=== PATIENT | male | born 1985 | race Caucasian/White ===

== ENCOUNTER → 2017-09-21 | Outpatient (CLI) | payer BC | LOC: WOUNDCARE 14:20 | PROVIDERS: ATTEND Surgery | DX: E11.621 Type 2 diabetes mellitus with foot ulcer (principal); L97.522 Non-pressure chronic ulcer of other part of left foot with fat layer exposed | CPT/HCPCS: 11042; 87070; 87075; 87077; 87186; 87205 ==

== ENCOUNTER → 2017-09-21 | Outpatient (CLI) | payer BC ==
--- NOTE | 2017-09-21 17:15 | Diagnostic Imaging Report ---
INDICATION: Mid back pain and low back pain for 2 months. No known injury.. TECHNIQUE: 3 views of the lumbar spine COMPARISON: None FINDINGS: There is mild left convex curvature of the lumbar spine centered at L3-L4. No spondylolisthesis is seen. The vertebral body heights are preserved. The disc heights are preserved. No acute fracture or dislocation is seen. The bilateral sacroiliac joints are patent. IMPRESSION: 1. No acute or significant osseous abnormality is seen in the lumbar spine. Dictated on workstation # [id number]
--- NOTE | 2017-09-21 17:25 | Diagnostic Imaging Report ---
INDICATION: Back pain. AP and lateral views of the thoracic spine are obtained. FINDINGS: The thoracic vertebrae are normal in height and alignment. There is no overt compression deformity or acute fracture. There are minor osteophytes in the lower thoracic spine. IMPRESSION: No acute abnormality of the thoracic spine. Dictated by: Dictated on workstation # [id number]
== END ==
LOC: RAD 16:10
PROVIDERS: ATTEND Nurse Practitioner Family
DX: M54.6 Pain in thoracic spine (principal); M54.5 Low back pain
CPT/HCPCS: 72072; 72100

== ENCOUNTER → 2017-09-21 | Outpatient (CLI) | payer BC ==
[2017-09-21 16:44] LABS: BASOPHILS % (AUTO) 0 % (0-10); EOSINOPHILS # (AUTO) 0.1 10^3/uL (0.0-0.3); EOSINOPHILS % (AUTO) 1 % (0-10); HEMATOCRIT 43 % (40-54); HEMOGLOBIN 15.8 G/DL (13.3-17.7); LYMPHOCYTES # (AUTO) 1.6 X 10^3 (1.0-4.0); LYMPHOCYTES % (AUTO) 25 % (12-44); MEAN CORPUSCULAR HEMOGLOBIN 31 PG (25-34); MEAN CORPUSCULAR HGB CONC 36 G/DL (32-36); MEAN CORPUSCULAR VOLUME 84 FL (80-99); MEAN PLATELET VOLUME 10.5 FL (7.4-10.4); MONOCYTES # (AUTO) 0.5 X 10^3 (0.0-1.0); MONOCYTES % (AUTO) 7 % (0-12); NEUTROPHILS # (AUTO) 4.2 X 10^3 (1.8-7.8); NEUTROPHILS % (AUTO) 66 % (42-75); PLATELET COUNT 259 10^3/uL (130-400); RED BLOOD COUNT 5.17 10^6/uL (4.35-5.85); RED CELL DISTRIBUTION WIDTH 13.9 % (10.0-14.5); WHITE BLOOD COUNT 6.3 10^3/uL (4.3-11.0)
[2017-09-21 17:08] LABS: ALANINE AMINOTRANSFERASE 20 U/L (0-55); ALBUMIN 4.3 GM/DL (3.2-4.5); ALKALINE PHOSPHATASE 105 U/L (40-136); BILIRUBIN,TOTAL 0.6 MG/DL (0.1-1.0); BUN/CREATININE RATIO 23; CALCIUM 9.8 MG/DL (8.5-10.1); CARBON DIOXIDE 24 MMOL/L (21-32); CHLORIDE 102 MMOL/L (98-107); CREATININE SERUM 0.92 MG/DL (0.60-1.30); GFR ESTIMATED > 60; GLUCOSE 269 MG/DL (70-105); SODIUM 138 MMOL/L (135-145); TOTAL PROTEIN 7.8 GM/DL (6.4-8.2)
--- NOTE | 2017-09-21 17:17 | Diagnostic Imaging Report ---
INDICATION: Foot ulcer x2-3 weeks. Type 2 diabetes. TECHNIQUE: 3 views of the left foot CORRELATION STUDY: None FINDINGS: Osseous structure appear to be intact. No acute bony abnormality. No gaye bony destructive type change. Joint spaces overall fairly well preserved. Marker is placed at the area of ulceration interposed between the third and fourth digits, demonstrates some soft tissue swelling without evidence for large gas collection. IMPRESSION: 1. Soft tissue swelling of the distal foot. Negative for acute bony abnormality or gaye erosive change. Dictated by: Dictated on workstation # [id number]
== END ==
LOC: RAD 16:00
PROVIDERS: ATTEND Surgery
DX: E11.621 Type 2 diabetes mellitus with foot ulcer (principal)
CPT/HCPCS: 36415; 73630; 80053; 83036; 85025

== ENCOUNTER → 2017-09-26 | Outpatient (CLI) | payer BC | LOC: WOUNDCARE 11:12 | PROVIDERS: ATTEND Surgery | DX: E11.621 Type 2 diabetes mellitus with foot ulcer (principal); L97.522 Non-pressure chronic ulcer of other part of left foot with fat layer exposed | CPT/HCPCS: 11042 ==

== ENCOUNTER → 2017-09-28 | Outpatient (CLI) | payer BC | LOC: WOUNDCARE 10:18 | PROVIDERS: ATTEND Surgery | DX: E11.621 Type 2 diabetes mellitus with foot ulcer (principal); L97.522 Non-pressure chronic ulcer of other part of left foot with fat layer exposed | CPT/HCPCS: 29445 ==

== ENCOUNTER → 2017-09-29 | Outpatient (CLI) | payer BC | LOC: WOUNDCARE 10:50 | PROVIDERS: ATTEND Internal Medicine | DX: E11.621 Type 2 diabetes mellitus with foot ulcer (principal); L97.522 Non-pressure chronic ulcer of other part of left foot with fat layer exposed | CPT/HCPCS: 99212 ==

== ENCOUNTER → 2017-10-03 | Outpatient (CLI) | payer BC | LOC: WOUNDCARE 08:58 | PROVIDERS: ATTEND Surgery | DX: E11.621 Type 2 diabetes mellitus with foot ulcer (principal); L97.522 Non-pressure chronic ulcer of other part of left foot with fat layer exposed | CPT/HCPCS: 99212 ==

== ENCOUNTER → 2017-10-03 | Outpatient (CLI) | payer BC ==
--- NOTE | 2017-10-03 14:23 | Diagnostic Imaging Report ---
INDICATION: Low back pain. TECHNIQUE: Multiplanar and multisequence acquisitions were acquired through the thoracic spine without the use of gadolinium. FINDINGS: The alignment of thoracic spine is normal. The vertebral body heights are well-maintained. There is no fracture or traumatic subluxation. There are no marrow signal intensity abnormalities. The spinal cord is normal in signal intensity and morphology. There is no focal disc extrusion or spinal stenosis. Conus medullaris is seen at L1 and is normal in appearance. IMPRESSION: Essentially unremarkable MRI thoracic spine. Dictated by: Dictated on workstation # [id number]
--- NOTE | 2017-10-03 16:34 | Diagnostic Imaging Report ---
PROCEDURE: MRI lumbar spine. TECHNIQUE: Multiplanar, multisequence MRI of the lumbar spine was performed without contrast. INDICATION: Low back pain. COMPARISON: None. FINDINGS: There are five lumbar type vertebral bodies presumed for the purposes of this report. Normal alignment. Vertebral body heights preserved. Normal bone marrow signal. No abnormal signal in the conus which terminates at L2. Normal morphology of the cauda equina. The intervertebral discs are well-preserved. There is no spinal canal, lateral recess or neural foraminal narrowing throughout the lumbar spine. No substantial facet arthropathy. The visualized paravertebral soft tissues are unremarkable. IMPRESSION: Normal MRI of the lumbar spine. No substantial spondylotic change or neural impingement. No acute osseous findings. Dictated by: Dictated on workstation # [id number]
== END ==
LOC: RAD 12:58
PROVIDERS: ATTEND Nurse Practitioner Family
DX: M54.5 Low back pain (principal)
CPT/HCPCS: 72146; 72148

== ENCOUNTER → 2019-03-20 | Outpatient (CLI) | payer BC | LOC: WOUNDCARE 13:41 | PROVIDERS: ATTEND Surgery | DX: E11.621 Type 2 diabetes mellitus with foot ulcer (principal); E11.42 Type 2 diabetes mellitus with diabetic polyneuropathy; L97.522 Non-pressure chronic ulcer of other part of left foot with fat layer exposed; E11.65 Type 2 diabetes mellitus with hyperglycemia; I10 Essential (primary) hypertension | CPT/HCPCS: 11042 ==

== ENCOUNTER → 2019-03-20 | Outpatient (CLI) | payer BC | LOC: LAB 15:18 | PROVIDERS: ATTEND Surgery | DX: E11.621 Type 2 diabetes mellitus with foot ulcer (principal); E11.42 Type 2 diabetes mellitus with diabetic polyneuropathy; L97.522 Non-pressure chronic ulcer of other part of left foot with fat layer exposed; E11.65 Type 2 diabetes mellitus with hyperglycemia | CPT/HCPCS: 36415; 83036 ==

== ENCOUNTER → 2019-03-27 | Outpatient (CLI) | payer BC | LOC: WOUNDCARE 14:18 | PROVIDERS: ATTEND Surgery | DX: E11.621 Type 2 diabetes mellitus with foot ulcer (principal); E11.42 Type 2 diabetes mellitus with diabetic polyneuropathy; L97.522 Non-pressure chronic ulcer of other part of left foot with fat layer exposed; E11.65 Type 2 diabetes mellitus with hyperglycemia | CPT/HCPCS: 99212 ==

== ENCOUNTER 2020-03-02 09:00 | Outpatient (RCR) | payer BC ==
[2020-03-01 09:50] VITALS: BP 126/93
[~2020-03-02] VITALS: Ht 182.9 cm
[2020-03-02 09:30] VITALS: BP 129/92
== END 2020-03-02 09:30 | disposition home or self-care (01) ==
LOC: SDC 09:00
PROVIDERS: ATTEND Nurse Practitioner Family
DX: L02.91 Cutaneous abscess, unspecified (principal)
CPT/HCPCS: 99212

== ENCOUNTER → 2020-10-20 | Outpatient (CLI) | payer BC ==
--- NOTE | 2020-10-20 16:02 | Diagnostic Imaging Report ---
INDICATION: Lower back pain. COMPARISON: 09/21/2017 FINDINGS: Frontal and lateral views of the lumbar spine were obtained. Alignment and vertebral heights are maintained. There is no fracture or destructive process. Multilevel degenerative disease is noted in the lumbar spine and consist primarily of facet arthropathy of the lower lumbar spine. Limited views of the abdomen demonstrate nonobstructive bowel gas pattern. IMPRESSION: 1. No acute fracture or dislocation of the lumbar spine. 2. Mild multilevel degenerative changes. Dictated by: Dictated on workstation # [id number]
--- NOTE | 2020-10-20 16:03 | Diagnostic Imaging Report ---
INDICATION: Back pain. COMPARISON: 09/21/2017 FINDINGS: Frontal and lateral views of the thoracic spine were obtained. Visualization of the upper thoracic spine is limited on the lateral projection. Alignment and vertebral heights are maintained. There is no fracture or destructive process. There are no large paraspinal masses. Mild multilevel degenerative disease is noted in the thoracic spine and consist primarily of mild multilevel intervertebral disc height loss. Limited views of the lungs are clear. IMPRESSION: 1. No acute fracture or dislocation of the thoracic spine. 2. Mild multilevel degenerative changes. Dictated by: Dictated on workstation # [id number]
== END ==
LOC: RAD 15:18
PROVIDERS: ATTEND Chiropractor
DX: M47.814 Spondylosis without myelopathy or radiculopathy, thoracic region (principal); M47.816 Spondylosis without myelopathy or radiculopathy, lumbar region; M51.34 Other intervertebral disc degeneration, thoracic region
CPT/HCPCS: 72072; 72100

== ENCOUNTER 2022-06-11 11:55 | Emergency (ER) | payer BC ==
[~2022-06-11] VITALS: Ht 188 cm; Wt 95.3 kg
--- NOTE | 2022-06-11 12:43 | ED GI ---
General Chief Complaint: Abdominal/GI Problems Stated Complaint: VOMITING | DIARRHEA| CHILLS Nursing Triage Note: PT AMB TO TRIAGE W C/O N/V/D, CHILLS, SOA, AND ABD PAIN SX APPROX 0700 THIS AM. PT A&OX4. Source of Information: Patient Exam Limitations: No Limitations History of Present Illness Date Seen by Provider: Jun 11, 2022 Time Seen by Provider: 12:23 Initial Comments 36-year-old male with diabetes mellitus presents emerged department today for nausea vomiting and diarrhea. Symptoms started this morning. No sick contacts. For loose stools today, multiple bouts of emesis. States he is unable to keep anything down at this time. He has diffuse abdominal cramping without any focal abdominal tenderness. No fevers but he has had chills. Sugar was 268 prior to arrival. Allergies and Home Medications Allergies Coded Allergies: No Known Drug Allergies (Unverified , 06/11/22) Patient Home Medication List Home Medication List Reviewed: Yes Ondansetron (Ondansetron Odt) 8 Mg Tab.rapdis, 8 MG SL Q4H PRN for NAUSEA/VOMITING Prescribed by: JONAH WALLER MD on 06/11/22 [id number] Review of Systems Review of Systems Constitutional: no symptoms reported EENTM: No Symptoms Reported Respiratory: No Symptoms Reported Cardiovascular: No Symptoms Reported Gastrointestinal: Abdominal Pain, Diarrhea, Nausea, Vomiting Genitourinary: No Symptoms Reported Musculoskeletal: no symptoms reported Skin: no symptoms reported Psychiatric/Neurological: No Symptoms Reported Endocrine: No Symptoms Reported Hematologic/Lymphatic: No Symptoms Reported Past [id number] Hx Patient Social History Tobacco Use?: No Use of E-Cig and/or Vaping dev: No Substance use?: No Alcohol Use?: Yes Alcohol Frequency: Once in a while Immunizations Up To Date Influenza Vaccine Up-to-Date: No; Not Current First/Initial COVID19 Vaccinat: 2020 Second COVID19 Vaccination Zach: 2020 Third COVID19 Vaccination Date: 2021 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 oz. kg; 26.00 BMI Method: General Appearance: WD/WN, no apparent distress HEENT: normal ENT inspection, pharynx normal Neck: non-tender, full range of motion, supple, normal inspection Respiratory: chest non-tender, lungs clear, normal breath sounds, no respiratory distress, no accessory muscle use Cardiovascular: regular rate, rhythm, no edema, no gallop, no JVD, no murmur Gastrointestinal: normal bowel sounds, soft, no organomegaly, no pulsatile mass, tenderness (Mild tenderness in the epigastric region. No rebound or guarding. No mass organomegaly. No skin changes.) Extremities: normal range of motion, non-tender, normal inspection, no pedal edema, no calf tenderness, normal capillary refill Neurologic/Psychiatric: alert, normal mood/affect, oriented x 3 Skin: normal color, warm/dry Lymphatic: no adenopathy Progress/Results/Core Measures Results/Orders Lab Results Laboratory Tests Test 06/11/22 12:55 Range/Units White Blood Count 12.5 H 4.3-11.0 10^3/uL Red Blood Count 5.15 4.30-5.52 10^6/uL Hemoglobin 15.8 13.3-17.7 g/dL Hematocrit 44 40-54 % Mean Corpuscular Volume 86 80-99 fL Mean Corpuscular Hemoglobin 31 25-34 pg Mean Corpuscular Hemoglobin Concent 36 32-36 g/dL Red Cell Distribution Width 13.1 10.0-14.5 % Platelet Count 216 130-400 10^3/uL Mean Platelet Volume 10.9 9.0-12.2 fL Immature Granulocyte % (Auto) 1 % Neutrophils (%) (Auto) 85 H 42-75 % Lymphocytes (%) (Auto) 8 L 12-44 % Monocytes (%) (Auto) 5 0-12 % Eosinophils (%) (Auto) 0 0-10 % Basophils (%) (Auto) 0 0-10 % Neutrophils # (Auto) 10.7 H 1.8-7.8 10^3/uL Lymphocytes # (Auto) 1.1 1.0-4.0 10^3/uL Monocytes # (Auto) 0.7 0.0-1.0 10^3/uL Eosinophils # (Auto) 0.0 0.0-0.3 10^3/uL Basophils # (Auto) 0.0 0.0-0.1 10^3/uL Immature Granulocyte # (Auto) 0.1 0.0-0.1 10^3/uL Sodium Level 137 135-145 MMOL/L Potassium Level 2.9 L 3.6-5.0 MMOL/L Chloride Level 101 98-107 MMOL/L Carbon Dioxide Level 21 21-32 MMOL/L Anion Gap 15 H 5-14 MMOL/L Blood Urea Nitrogen 12 7-18 MG/DL Creatinine 0.93 0.60-1.30 MG/DL Estimat Glomerular Filtration Rate 108 BUN/Creatinine Ratio 13 Glucose Level 320 H 70-105 MG/DL Calcium Level 10.2 H 8.5-10.1 MG/DL Corrected Calcium 8.5-10.1 MG/DL Total Bilirubin 0.9 0.1-1.0 MG/DL Aspartate Amino Transf (AST/SGOT) 26 5-34 U/L Alanine Aminotransferase (ALT/SGPT) 62 H 0-55 U/L Alkaline Phosphatase 99 40-136 U/L Total Protein 7.6 6.4-8.2 GM/DL Albumin 4.6 H 3.2-4.5 GM/DL Lipase 11 8-78 U/L My Orders Orders - JONAH WALLER DO Iv Heplock-Insert (Order) (06/11/22 12:39) Ns Iv 1000 Ml (Sodium Chloride 0.9%) (06/11/22 12:45) Ondansetron Injection (Zofran Injectio (06/11/22 12:45) Comprehensive Metabolic Panel (06/11/22 12:43) Lipase (06/11/22 12:43) Cbc With Automated Diff (06/11/22 12:43) Diphenhydramine Injection (Benadryl Inje (06/11/22 13:15) Promethazine Injection (Phenergan Injec (06/11/22 13:45) Medications Given in ED Current Medications Medications Dose Ordered Sig/Michele Route Start Time Stop Time Status Last Admin Dose Admin Diphenhydramine HCl 50 mg ONCE ONCE IVP 06/11/22 13:15 06/11/22 13:16 DC 06/11/22 12:58 50 MG Ondansetron HCl 8 mg ONCE ONCE IVP 06/11/22 12:45 06/11/22 12:46 DC 06/11/22 12:57 8 MG Promethazine HCl 25 mg ONCE ONCE IVP 06/11/22 13:45 06/11/22 13:46 DC 06/11/22 13:51 25 MG Vital Signs/I&O 06/11/22 12:02 Temp 35.3 Pulse 86 Resp 26 B/P (MAP) 165/108 (127) Pulse Ox 100 O2 Delivery Room Air Blood Pressure Mean: 127 Departure Communication (Admissions) Patient is hemodynamically stable. Tolerating p.o. after provided therapies. Does still have some intermittent nausea. Likely viral gastroenteritis. Blood sugar is elevated however there is no evidence for DKA at this time. Advised to watch his sugars closely, increase his fluids and return to the emergency department for any severe concerns. Follow-up with his doctor in the next 2 to 3 days. Impression Primary Impression: Nausea and vomiting Qualified Codes: R11.2 - Nausea with vomiting, unspecified Additional Impression: Diarrhea Qualified Codes: R19.7 - Diarrhea, unspecified Disposition: 01 HOME, SELF-CARE Condition: Stable Departure-Patient Inst. Referrals: ELSA WILSON MD (PCP/Family) Primary Care Physician Patient Instructions: Viral Gastroenteritis, Adult (DC) Add. Discharge Instructions: Increase your fluids at home. Use the nausea medicine as needed. You may also use Benadryl as needed which helps quite a lot with nausea. Monitor your blood sugars closely. Return to the emergency department for any severe concerns. Follow-up with your primary doctor in 3 to 4 days should your symptoms not improved. All discharge instructions reviewed with patient and/or family. Voiced understanding. Scripts Ondansetron (Ondansetron Odt) 8 Mg Tab.rapdis 8 MG SL Q4H PRN for NAUSEA/VOMITING for 3 Days, #18 TAB Prov: JONAH WALLER DO 06/11/22 JONAH WALLER DO Jun 11, 2022 12:43
[2022-06-11] MEDS ORDERED: NS IV 1000 ML 1,000 ML IV SCH (12:45)
[2022-06-11] MEDS ORDERED: diphenhydrAMINE 50 MG/ML INJ (BENADRYL) IM ONE (12:45)
[2022-06-11] MEDS ORDERED: ONDANSETRON 4 MG/2 ML (SDV) Z0FRAN IVP ONE (12:45)
[2022-06-11 13:05] LABS: BASOPHILS % (AUTO) 0 % (0-10); EOSINOPHILS % (AUTO) 0 % (0-10); HEMATOCRIT 44 % (40-54); HEMOGLOBIN 15.8 g/dL (13.3-17.7); LYMPHOCYTES # (AUTO) 1.1 10^3/uL (1.0-4.0); LYMPHOCYTES % (AUTO) 8 % (12-44); MEAN CORPUSCULAR HEMOGLOBIN 31 pg (25-34); MEAN CORPUSCULAR HGB CONC 36 g/dL (32-36); MEAN CORPUSCULAR VOLUME 86 fL (80-99); MEAN PLATELET VOLUME 10.9 fL (9.0-12.2); MONOCYTES # (AUTO) 0.7 10^3/uL (0.0-1.0); MONOCYTES % (AUTO) 5 % (0-12); NEUTROPHILS # (AUTO) 10.7 10^3/uL (1.8-7.8); NEUTROPHILS % (AUTO) 85 % (42-75); PLATELET COUNT 216 10^3/uL (130-400); WHITE BLOOD COUNT 12.5 10^3/uL (4.3-11.0)
[2022-06-11] MEDS ORDERED: diphenhydrAMINE 50 MG/ML INJ (BENADRYL) IVP ONE (13:15)
[2022-06-11 13:23] LABS: ALBUMIN 4.6 GM/DL (3.2-4.5); CHLORIDE 101 MMOL/L (98-107); POTASSIUM 2.9 MMOL/L (3.6-5.0); SODIUM 137 MMOL/L (135-145)
[2022-06-11 13:24] LABS: CALCIUM 10.2 MG/DL (8.5-10.1)
[2022-06-11 13:25] LABS: GLUCOSE 320 MG/DL (70-105); TOTAL PROTEIN 7.6 GM/DL (6.4-8.2)
[2022-06-11 13:26] LABS: CARBON DIOXIDE 21 MMOL/L (21-32)
[2022-06-11 13:27] LABS: BILIRUBIN,TOTAL 0.9 MG/DL (0.1-1.0)
[2022-06-11 13:29] LABS: ALKALINE PHOSPHATASE 99 U/L (40-136); CREATININE SERUM 0.93 MG/DL (0.60-1.30); GFR ESTIMATED 108
[2022-06-11 13:30] LABS: BUN/CREATININE RATIO 13
[2022-06-11 13:32] LABS: ALANINE AMINOTRANSFERASE 62 U/L (0-55); LIPASE 11 U/L (8-78)
[2022-06-11] MEDS ORDERED: ONDA8TAB13 SL ×2 (13:36→14:33)
[2022-06-11] MEDS ORDERED: PROMETHAZINE INJ 25 MG/ML (PHENERGAN) AMP IVP ONE (13:45)
[2022-06-11 14:34] VITALS: BP 164/91
== END 2022-06-11 14:34 | disposition home or self-care (01) ==
LOC: EDUNIT# 11:55 → ER 11:58
DX: R11.2 Nausea with vomiting, unspecified (principal); R19.7 Diarrhea, unspecified; R10.13 Epigastric pain; E11.9 Type 2 diabetes mellitus without complications
CPT/HCPCS: 36415; 80053; 83690; 85025; 99281

== ENCOUNTER 2023-03-23 05:43 | Outpatient (CLI) | payer BC ==
[~2023-03-23] VITALS: Ht 188 cm; Wt 103.6 kg
[~2023-03-23 05:43] MED LIST: ONDA8TAB13 SL
[2023-03-24] MEDS ORDERED: LOSA25TA41 PO (15:22)
[2023-03-24] MEDS ORDERED: TADA5TAB13 PO (15:22)
[2023-03-24] MEDS ORDERED: ATOR10TA66 PO (15:22)
[2023-03-24] MEDS ORDERED: NAPR220C11 PO (15:22)
[2023-03-24] MEDS ORDERED: BACL10TA PO (15:22)
[2023-03-24] MEDS ORDERED: PANT40TA52 PO (15:22)
== END 2023-03-24 15:29 | disposition home or self-care (01) ==
LOC: PREOP 05:43
PROVIDERS: ATTEND Surgery
DX: Z01.818 Encounter for other preprocedural examination (principal)

== ENCOUNTER → 2023-03-30 | Outpatient (CLI) | payer BC ==
[~2023-03-30] MED LIST changes: +ATOR10TA66 PO; +BACL10TA PO; +LOSA25TA41 PO; +NAPR220C11 PO; +PANT40TA52 PO; +TADA5TAB13 PO
--- NOTE | 2023-03-30 16:32 | Diagnostic Imaging Report ---
INDICATION: Dysphagia. Patient ingested effervescent crystals as well as thin and thick barium and imaging of the esophagus was performed in multiple obliquities. 66 seconds of fluoroscopic time was utilized. Reference air kermes 49.6 mGy. 40 images were obtained. Preliminary radiograph of the chest is unremarkable. Esophagus has smooth contour. No mass or strictures identified. No hiatal hernia or gastroesophageal reflux was demonstrated. IMPRESSION: Unremarkable esophagram. Dictated by: Dictated on workstation # [id number]
== END ==
LOC: RAD 09:38
PROVIDERS: ATTEND Surgery
DX: R13.10 Dysphagia, unspecified (principal)
CPT/HCPCS: 74220

== ENCOUNTER 2023-04-05 11:59 | Day surgery (SDC) | payer BC ==
[~2023-04-05] VITALS: Ht 188 cm; Wt 103.6 kg
[2023-04-05] MEDS ORDERED: LACTATED RINGERS 1,000 ML 1,000 ML IV STA (12:11)
[2023-04-05] MEDS ORDERED: HURRICAINE EXT TUBE (BENZOCAINE) XX PRN (12:15)
[2023-04-05 12:30] VITALS: BP 182/109
[2023-04-05] MEDS ORDERED: LACTATED RINGERS 1,000 ML 1,000 ML IV ONE (12:42)
[2023-04-05] MEDS ORDERED: HURRICAINE EXT TUBE (BENZOCAINE) ONE (12:42)
--- NOTE | 2023-04-05 13:19 | Progress Note-Pre Operative ---
Pre-Operative Progress Note Date H&P Reviewed: Apr 05, 2023 Time H&P Reviewed: 13:18 History & Physical: H&P Reviewed, Patient Examed, No changes noted Pre-Operative Diagnosis: dysphagia SHAUNNA SUAREZ DO Apr 05, 2023 13:19
--- NOTE | 2023-04-05 14:09 | Progress Note-Post Operative ---
Post-Operative Progess Note Surgeon (s)/Control And Recovery Combat Rescue (s) Surgeon SHAUNNA SUAREZ DO Control And Recovery Combat Rescue: NA Pre-Operative Diagnosis dysphagia Post-Operative Diagnosis questionable gastroparesis some reflux esophagitis Procedure & Operative Findings Date of Procedure 04/05/23 Procedure Performed/Findings EGD and biopsies Anesthesia Type per CHLORINE PLANT OPERATOR Estimated Blood Loss Estimated blood loss (mL): none Specimens/Packing Specimens Removed antrum and GEJ SHAUNNA SUAREZ DO Apr 05, 2023 14:09
[2023-04-05 14:10] VITALS: BP 132/83
--- NOTE | 2023-04-05 14:10 | Discharge Inst-Simple/Standard ---
Discharge Inst-Standard Patient Instructions/Follow Up Plan of Care/Instructions/FU: 2 weeks cyn Activity as Tolerated: Yes Discharge Diet: Regular Diet SHAUNNA SUAREZ DO Apr 05, 2023 14:10
[2023-04-05 14:15] VITALS: BP_SYST 132; BP_SYST 134; BP_DIAS 84; BP_DIAS 86
--- NOTE | 2023-04-05 14:20 | Anesthesia-General Post-Op ---
MAC Patient Condition Mental Status/LOC: Same as Preop Cardiovascular: Satisfactory Nausea/Vomiting: Absent Respiratory: Satisfactory Pain: Controlled Complications: Absent Post Op Complications Complications None Follow Up Care/Instructions Patient Instructions None needed. Anesthesiology Discharge Order Discharge Order Patient is doing well, no complaints, stable vital signs, no apparent adverse anesthesia problems. No complications reported per nursing. JUAN FRANCISCO ROCHA CRNA Apr 05, 2023 14:20
[2023-04-05 14:39] VITALS: BP 134/84
--- NOTE | 2023-04-05 21:04 | OPERATIVE REPORT ---
DATE OF SERVICE: 04/05/2023 PREOPERATIVE DIAGNOSIS: Dysphagia. POSTOPERATIVE DIAGNOSES: Questionable gastroparesis, some reflux esophagitis. SURGEON: Shaunna Tovar DO ANESTHESIA: Per BLEACH SUPERVISOR. PROCEDURES: EGD with biopsies. ESTIMATED BLOOD LOSS: None. COMPLICATIONS: None. INDICATIONS: The patient is a 37-year-old male with some dysphagia symptoms. He understands risks and benefits of procedure and wished to proceed. Consent was signed in chart. DESCRIPTION OF PROCEDURE: The patient was taken to endoscopy suite, placed in the left lateral recumbent position. Timeout was performed. Scope was inserted in the mouth, down the esophagus, stomach, into the duodenum without difficulty. There were no polyps, masses or ulcerations. Scope was slowly retracted back into stomach where it was further insufflated. Stomach had a fair amount of gastric contents. Lots of irrigation and suction used, but the larger particulates could not be evacuated. Biopsy of the antrum was obtained. Scope was retroflexed noting no hiatal hernia, no other pathology. Again, with the amount of food particulate in the stomach, question gastroparesis. Scope was then slowly retracted back to the distal esophagus. Biopsy of GE junction was obtained. Slight reflux esophagitis appearance. Scope was slowly retracted back until completely removed, noting no other pathology. RECOMMENDATIONS: The patient will follow up on biopsies in 2 weeks. Further recommendations pending biopsy results. We will continue medications currently at this time. Job ID: [id number] DocumentID: [id number] Dictated Date: 04/05/2023 14:15:44 Councilor Date: 04/05/2023 21:03:00 Dictated By: SHAUNNA TOVAR DO
== END 2023-04-05 14:40 | disposition home or self-care (01) ==
LOC: ENDO 11:59
PROVIDERS: ATTEND Surgery
DX: K21.00 Gastro-esophageal reflux disease with esophagitis, without bleeding (principal)
CPT/HCPCS: 88305

== ENCOUNTER 2023-04-12 07:30 | Inpatient (IN) | payer BC ==
[~2023-04-12] VITALS: Ht 188 cm; Wt 106.1 kg
--- NOTE | 2023-04-12 07:42 | ED GI ---
General Chief Complaint: Abdominal/GI Problems Stated Complaint: VOMITING Source of Information: Patient, Family Exam Limitations: No Limitations History of Present Illness Date Seen by Provider: Apr 12, 2023 Time Seen by Provider: 07:39 Initial Comments 37-year-old diabetic presents with nausea and vomiting since Tuesday morning. No fever no history of DKA no hematemesis no melena or hematochezia no significant abdominal pain. Timing/Duration: 1-2 Days Severity/Quality: Moderate Activities at Onset: None Modifying Factors: Improves With Eating Associated Symptoms: Nausea/Vomiting Allergies and Home Medications Allergies Coded Allergies: No Known Drug Allergies (Unverified , 06/11/22) Patient Home Medication List Home Medication List Reviewed: Yes Atorvastatin Calcium (Atorvastatin Calcium) 10 Mg Tablet, 10 MG PO HS, (Reported) Entered as Reported by: JACQUES JONES on 03/24/231521 Baclofen (Baclofen) 10 Mg Tablet, 10 MG PO DAILY, (Reported) Entered as Reported by: JACQUES JONES on 03/24/231521 Losartan Potassium (Losartan Potassium) 25 Mg Tablet, 25 MG PO DAILY, (Reported) Entered as Reported by: JACQUES JONES on 03/24/231521 Naproxen Sodium (Aleve) 220 Mg Capsule, 220 MG PO DAILY, (Reported) Entered as Reported by: JACQUES JONES on 03/24/231521 Pantoprazole Sodium (Pantoprazole Sodium) 40 Mg Tablet.dr, 40 MG PO DAILY, (Reported) Entered as Reported by: JACQUES JONES on 03/24/231521 Tadalafil (Tadalafil) 5 Mg Tablet, 5 MG PO PRN, (Reported) Entered as Reported by: JACQUES JONES on 03/24/231521 Review of Systems Review of Systems Constitutional: no symptoms reported EENTM: No Symptoms Reported Respiratory: Shortness of Air (Due to vomiting) Cardiovascular: No Symptoms Reported Gastrointestinal: See HPI, Nausea, Poor Fluid Intake, Vomiting Genitourinary: No Symptoms Reported Musculoskeletal: no symptoms reported Skin: no symptoms reported Psychiatric/Neurological: No Symptoms Reported Endocrine: See HPI Hematologic/Lymphatic: No Symptoms Reported All Other Systems Reviewed Negative Unless Noted: Yes Past Cwamjsa-Vpftgu-Wbsabq Hx Immunizations Up To Date First/Initial COVID19 Vaccinat: 2020 Second COVID19 Vaccination Zach: 2020 Third COVID19 Vaccination Date: 2021 Seasonal Allergies Seasonal Allergies: Yes Past Medical History Surgery/Hospitalization HX: DM Surgeries: Yes (ORAL) Ear Surgery, Orthopedic, Vasectomy Respiratory: No Cardiac: Yes High Cholesterol, Hypertension Neurological: No Genitourinary: No Gastrointestinal: Yes Gastroesophageal Reflux Musculoskeletal: Yes (RIGHT REVERSE TENNIS ELBOW) Endocrine: Yes Diabetes, Insulin dep Cancer: No Psychosocial: Yes (MEDICAL ANXIETY) Integumentary: Yes (RED PATCHES ON HANDS) Blood Disorders: No Family Medical History No Pertinent Family Hx Physical Exam Vital Signs Vital Signs - First Documented 04/12/23 07:33 Temp 36.8 Pulse 101 Resp 22 B/P (MAP) 171/119 (136) Pulse Ox 100 O2 Delivery Room Air Capillary Refill : Height/Weight/BMI Height: '" Weight: lbs. oz. kg; 29.31 BMI Method: General Appearance: WD/WN, mild distress HEENT: PERRL/EOMI, normal ENT inspection Neck: non-tender, full range of motion Respiratory: chest non-tender, lungs clear, normal breath sounds, no respi ratory distress, no accessory muscle use Cardiovascular: regular rate, rhythm, no edema Gastrointestinal: non tender, soft Extremities: normal range of motion, non-tender, normal inspection, no pedal edema, no calf tenderness, normal capillary refill Back: normal inspection, no CVA tenderness Neurologic/Psychiatric: ekg manager II-XII nml as tested, no motor/sensory deficits, alert, normal mood/affect, oriented x 3 Skin: normal color, cool, diaphoresis Lymphatic: no adenopathy Focused Exam Lactate Level 04/12/23 07:50: Lactic Acid Level 2.68*H 04/12/23 09:53: Lactic Acid Level 1.64 Lactic Acid Level Laboratory Tests Test 04/12/23 07:50 04/12/23 09:53 Lactic Acid Level 2.68 MMOL/L (0.50-2.00) *H 1.64 MMOL/L (0.50-2.00) Progress/Results/Core Measures Results/Orders Lab Results Laboratory Tests Test 04/12/23 07:40 04/12/23 07:41 04/12/23 07:50 04/12/23 08:14 Range/Units White Blood Count 7.5 4.3-11.0 10^3/uL Red Blood Count 5.12 4.30-5.52 10^6/uL Hemoglobin 15.4 13.3-17.7 g/dL Hematocrit 44 40-54 % Mean Corpuscular Volume 86 80-99 fL Mean Corpuscular Hemoglobin 30 25-34 pg Mean Corpuscular Hemoglobin Concent 35 32-36 g/dL Red Cell Distribution Width 13.6 10.0-14.5 % Platelet Count 235 130-400 10^3/uL Mean Platelet Volume 10.4 9.0-12.2 fL Immature Granulocyte % (Auto) 0 % Neutrophils (%) (Auto) 78 H 42-75 % Lymphocytes (%) (Auto) 12 12-44 % Monocytes (%) (Auto) 10 0-12 % Eosinophils (%) (Auto) 0 0-10 % Basophils (%) (Auto) 0 0-10 % Neutrophils # (Auto) 5.9 1.8-7.8 10^3/uL Lymphocytes # (Auto) 0.9 L 1.0-4.0 10^3/uL Monocytes # (Auto) 0.8 0.0-1.0 10^3/uL Eosinophils # (Auto) 0.0 0.0-0.3 10^3/uL Basophils # (Auto) 0.0 0.0-0.1 10^3/uL Immature Granulocyte # (Auto) 0.0 0.0-0.1 10^3/uL Sodium Level 138 135-145 MMOL/L Potassium Level 3.2 L 3.6-5.0 MMOL/L Chloride Level 101 98-107 MMOL/L Carbon Dioxide Level 24 21-32 MMOL/L Anion Gap 13 5-14 MMOL/L Blood Urea Nitrogen 19 H 7-18 MG/DL Creatinine 1.08 0.60-1.30 MG/DL Estimat Glomerular Filtration Rate 90 BUN/Creatinine Ratio 18 Glucose Level 222 H 70-105 MG/DL Calcium Level 10.0 8.5-10.1 MG/DL Corrected Calcium 8.5-10.1 MG/DL Total Bilirubin 1.5 H 0.1-1.0 MG/DL Aspartate Amino Transf (AST/SGOT) 34 5-34 U/L Alanine Aminotransferase (ALT/SGPT) 58 H 0-55 U/L Alkaline Phosphatase 109 40-136 U/L Total Protein 7.7 6.4-8.2 GM/DL Albumin 4.7 H 3.2-4.5 GM/DL Lipase 17 8-78 U/L Glucometer 216 H 70-110 MG/DL Blood Gas Puncture Site RT RADIAL Blood Gas Patient Temperature 36.8 Arterial Blood pH 7.68 *H 7.37-7.43 Arterial Blood Partial Pressure CO2 14 *L 35-45 MMHG Arterial Blood Partial Pressure O2 113 H 79-93 MMHG Arterial Blood HCO3 17 *L 23-27 MMOL/L Arterial Blood Total CO2 17.2 L 21.0-31.0 MMOL/L Arterial Blood Oxygen Saturation 99 94-100 % Arterial Blood Base Excess -4.0 L -2.5-2.5 MMOL/L Socrates Test YES-POS Blood Gas Ventilator Setting NO Blood Gas Inspired Oxygen ROOM AIR Lactic Acid Level 2.68 *H 0.50-2.00 MMOL/L Urine Color YELLOW Urine Clarity CLEAR Urine pH 7.0 5-9 Urine Specific [place] 1.025 H 1.016-1.022 Urine Protein 3+ H NEGATIVE Urine Glucose (UA) 2+ H NEGATIVE Urine Ketones 3+ H NEGATIVE Urine Nitrite NEGATIVE NEGATIVE Urine Bilirubin 1+ H NEGATIVE Urine Urobilinogen 1.0 < = 1.0 MG/DL Urine Leukocyte Esterase NEGATIVE NEGATIVE Urine RBC (Auto) TRACE H NEGATIVE Urine RBC 2-5 H /HPF Urine WBC 2-5 /HPF Urine Squamous Epithelial Cells 0-2 /HPF Urine Crystals PRESENT H /LPF Urine Amorphous Sediment FEW JEREMY URATES H /LPF Urine Bacteria FEW H /HPF Urine Casts PRESENT /LPF Urine Hyaline Casts 5-10 H /LPF Urine Mucus LARGE H /LPF Urine Culture Indicated YES Urine Opiates Screen NEGATIVE NEGATIVE Urine Oxycodone Screen NEGATIVE NEGATIVE Urine Methadone Screen NEGATIVE NEGATIVE Urine Propoxyphene Screen NEGATIVE NEGATIVE Urine Barbiturates Screen NEGATIVE NEGATIVE Ur Tricyclic Antidepressants Screen NEGATIVE NEGATIVE Urine Phencyclidine Screen NEGATIVE NEGATIVE Urine Amphetamines Screen NEGATIVE NEGATIVE Urine Methamphetamines Screen NEGATIVE NEGATIVE Urine Benzodiazepines Screen NEGATIVE NEGATIVE Urine Cocaine Screen NEGATIVE NEGATIVE Urine Cannabinoids Screen POSITIVE H NEGATIVE Test 04/12/23 08:47 04/12/23 09:53 Range/Units Beta-Hydroxybutyrate (Chem panel) 0.15 0.00-0.27 MMOL/L Lactic Acid Level 1.64 0.50-2.00 MMOL/L My Orders Orders - IWONA SOTELO DO Comprehensive Metabolic Panel (04/12/23 07:42) Lipase (04/12/23 07:42) Ua Culture If Indicated (04/12/23 07:42) Ed Iv/Invasive Line Start (04/12/23 07:42) Cbc With Automated Diff (04/12/23 07:42) Ns Iv 1000 Ml (Ns Iv 1000 Ml) (04/12/23 07:45) Ondansetron Injection (Ondansetron Inj (04/12/23 07:45) Accucheck Stat ONCE (04/12/23 07:42) Arterial Blood Gas (04/12/23 07:46) Lactic Acid Analyzer (04/12/23 07:46) Drug Screen Stat (Urine) (04/12/23 08:01) Potassium Chloride (Tablet) (Potassium C (04/12/23 08:30) Promethazine Injection (Promethazine I (04/12/23 08:45) Urine Culture (04/12/23 08:14) Beta Hydroxybutyrate (04/12/23 08:44) Ns Iv 1000 Ml (Ns Iv 1000 Ml) (04/12/23 08:45) Ceftriaxone Iv/Im (Ceftriaxone Iv/Im) (04/12/23 09:00) Blood Culture (04/12/23 08:53) Blood Culture (04/12/23 09:20) Admission Order(Inpt,Obs,Sdc) (04/12/23 09:28) Code/Resuscitation (04/12/23 09:28) Ambulate 08,12,20 (04/12/23 09:28) Sequential Compression Device ONCE (04/12/23 09:28) Initiate Admission Nursing Pro .admission (04/12/23 09:28) Medications Given in ED Current Medications Medications Dose Ordered Sig/Michele Route Start Time Stop Time Status Last Admin Dose Admin Ceftriaxone Sodium 1000 mg/ Sodium Chloride 50 ml @ 100 mls/hr ONCE ONCE IV 04/12/23 09:00 04/12/23 09:29 DC 04/12/23 09:32 100 MLS/HR Ondansetron HCl 4 mg ONCE ONCE IVP 04/12/23 07:45 04/12/23 07:46 DC 04/12/23 07:55 4 MG Promethazine HCl 25 mg ONCE ONCE IVP 04/12/23 08:45 04/12/23 08:46 DC 04/12/23 08:38 25 MG Vital Signs/I&O 04/12/23 07:33 Temp 36.8 Pulse 101 Resp 22 B/P (MAP) 171/119 (136) Pulse Ox 100 O2 Delivery Room Air Progress Progress Note : Time: 07:38 Progress Note Patient presents to the emergency department with nausea and vomiting denies any pain. States he started vomiting yesterday morning. He did just start taking Ozempic 2 days ago. He is on a continuous glucose monitor for his diabetes states he runs high. Has never been admitted for diabetic ketoacidosis. Denies hematemesis. Denies abdominal pain. States the vomiting stopped last night about 1999, states this morning he started vomiting again states he has only had a small amount of mashed potatoes this morning and this came back up. States he is try to drink water and Gatorade but is unable to keep it down. States normal bowel movements no difficulty urinating. No fever cough or chills no other evidence of illness. Will evaluate blood work, provide IV fluids and Zofran to get symptoms under control and reevaluate and determine need for radiographic imaging if needed. We will determine metabolic status and ensure no DKA or impending DKA. Initial Accu-Chek is 216 mg/dL. Although patient continues to vomit he still tries to drink as Gatorade we did have to take this from him until the vomiting subsides. Departure Impression Primary Impression: Dehydration Additional Impressions: Urinary tract infection Qualified Codes: N39.0 - Urinary tract infection, site not specified Hypokalemia Hyperglycemia Disposition: ADMITTED INPATIENT Condition: Stable Admissions Decision to Admit Reason: Admit from ER (General) Decision to Admit/Date: Apr 12, 2023 Time/Decision to Admit Time: 09:00 Departure-Patient Inst. Referrals: JACQUES LEA (PCP) Primary Care Physician NO,LOCAL PHYSICIAN (Family) Primary Care Physician IWONA SOTELO DO Apr 12, 2023 07:42
[2023-04-12] MEDS ORDERED: NS IV 1000 ML 1,000 ML IV SCH (07:45)
[2023-04-12] MEDS ORDERED: ONDANSETRON INJECTION 4 MG/2 ML (SDV) IVP ONE (07:45)
[2023-04-12 07:50] LABS: BASOPHILS % (AUTO) 0 % (0-10); EOSINOPHILS % (AUTO) 0 % (0-10); HEMATOCRIT 44 % (40-54); HEMOGLOBIN 15.4 g/dL (13.3-17.7); LYMPHOCYTES # (AUTO) 0.9 10^3/uL (1.0-4.0); LYMPHOCYTES % (AUTO) 12 % (12-44); MEAN CORPUSCULAR HEMOGLOBIN 30 pg (25-34); MEAN CORPUSCULAR HGB CONC 35 g/dL (32-36); MEAN CORPUSCULAR VOLUME 86 fL (80-99); MEAN PLATELET VOLUME 10.4 fL (9.0-12.2); MONOCYTES # (AUTO) 0.8 10^3/uL (0.0-1.0); MONOCYTES % (AUTO) 10 % (0-12); NEUTROPHILS # (AUTO) 5.9 10^3/uL (1.8-7.8); NEUTROPHILS % (AUTO) 78 % (42-75); PLATELET COUNT 235 10^3/uL (130-400); WHITE BLOOD COUNT 7.5 10^3/uL (4.3-11.0)
[2023-04-12 08:14] LABS: ALANINE AMINOTRANSFERASE 58 U/L (0-55); ALBUMIN 4.7 GM/DL (3.2-4.5); ALKALINE PHOSPHATASE 109 U/L (40-136); BILIRUBIN,TOTAL 1.5 MG/DL (0.1-1.0); BUN/CREATININE RATIO 18; CARBON DIOXIDE 24 MMOL/L (21-32); CHLORIDE 101 MMOL/L (98-107); CREATININE SERUM 1.08 MG/DL (0.60-1.30); GFR ESTIMATED 90; GLUCOSE 222 MG/DL (70-105); LIPASE 17 U/L (8-78); POTASSIUM 3.2 MMOL/L (3.6-5.0); SODIUM 138 MMOL/L (135-145); TOTAL PROTEIN 7.7 GM/DL (6.4-8.2)
[2023-04-12] MEDS ORDERED: POTASSIUM CHLORIDE 20 MEQ TABLET PO ONE (08:30)
[2023-04-12 08:34] LABS: ABG OXYGEN SATURATION 99 % (94-100); ABG PO2 113 MMHG (79-93); ABG TCO2 17.2 MMOL/L (21.0-31.0)
[2023-04-12 08:34] LABS: CLARITY,URINE CLEAR; COLOR,URINE YELLOW; GLUCOSE, URINE (UA) 2+ (NEGATIVE); KETONES,URINE 3+ (NEGATIVE); NITRITE,URINE NEGATIVE (NEGATIVE); PROTEIN,URINE 3+ (NEGATIVE)
[2023-04-12 08:35] LABS: AMORPHOUS SEDIMENT,UR FEW AMOR URATES /LPF; BACTERIA,URINE FEW /HPF; BILIRUBIN,URINE 1+ (NEGATIVE); LEUKOCYTE ESTERASE ,URINE NEGATIVE (NEGATIVE); SQUAMOUS EPITHELIAL CELL,UR 0-2 /HPF
[2023-04-12 08:39] LABS: ABG PCO2 14 MMHG (35-45); ABG PH 7.68 (7.37-7.43); ALLENS TEST YES-POS
[2023-04-12 08:40] LABS: AMPHETAMINE SCREEN, URINE NEGATIVE (NEGATIVE); BARBITURATE SCREEN URINE NEGATIVE (NEGATIVE); BENZODIAZEPINES SCREEN URINE NEGATIVE (NEGATIVE); CANNABINOID SCREEN, URINE POSITIVE (NEGATIVE); COCAINE SCREEN URINE NEGATIVE (NEGATIVE); METHADONE STAT NEGATIVE (NEGATIVE); OPIATE SCREEN URINE NEGATIVE (NEGATIVE); OXYCODONE STAT NEGATIVE (NEGATIVE); PROPOXYPHENE STAT NEGATIVE (NEGATIVE); TRICYCLIC ANTIDEPRESSANTS SCRE NEGATIVE (NEGATIVE)
[2023-04-12 08:40] LABS: INSPIRED O2 ROOM AIR; PATIENT TEMP 36.8; VENTILATOR NO
[2023-04-12] MEDS ORDERED: PROMETHAZINE INJ 25 MG/ML VIAL IVP ONE (08:45)
[2023-04-12] MEDS: NS IV 1000 ML 1,000 ML IV SCH ×4 (08:53→19:38)
[2023-04-12] MEDS ORDERED: cefTRIAXone IV/IM 1,000 MG in NS (IVPB) 50 ML 50 ML IV ONE (09:00)
[2023-04-12] MEDS ORDERED: ONDANSETRON 4 MG ORAL DISSOLVE TABLET PO PRN (10:00)
[2023-04-12] MEDS ORDERED: MELATONIN 3 MG TABLET PO PRN (10:00)
[2023-04-12] MEDS ORDERED: LACTULOSE SYRUP 10GM/15ML 30ML UDC PO PRN (10:00)
[2023-04-12] MEDS ORDERED: ANTACID SUSPENSION 30 ML UDC PO PRN (10:00)
[2023-04-12] MEDS ORDERED: BISACODYL 10 MG SUPPOSITORY PR PRN (10:00)
[2023-04-12] MEDS ORDERED: CALCIUM CARBONATE 500 MG CHEW TABLET PO PRN (10:00)
[2023-04-12] MEDS ORDERED: diphenhydrAMINE INJ 50 MG/ML VIAL IVP PRN (10:00)
[2023-04-12] MEDS ORDERED: MILK OF MAGNESIA 400 MG/5 ML 30 ML UDC PO PRN (10:00)
[2023-04-12] MEDS ORDERED: NS IV 500 ML 500 ML IV PRN (10:00)
[2023-04-12] MEDS ORDERED: diphenhydrAMINE 25 MG TABLET PO PRN (10:00)
[2023-04-12 10:12] VITALS: BP 182/94
[2023-04-12] MEDS: ENOXAPARIN 40 MG/0.4 ML SYRINGE SC SCH (11:50)
[2023-04-12] MEDS: inSUlin ASPART 1 UNIT/0.01 ML (PER UNIT) SC SCH ×3 (11:50→21:09)
[2023-04-12] MEDS ORDERED: LOSARTAN 25 MG TABLET PO NR (12:00)
[2023-04-12 12:01] VITALS: BP 187/95
[2023-04-12] MEDS ORDERED: HOLD METFORMIN - RECEIVED CONTRAST 20 ML VIAL IV SCH (12:30)
[2023-04-12] MEDS ORDERED: IOHEXOL 350 MG/ML 100 ML (OMNIPAQUE 350) VIAL IV ONE (12:30)
[2023-04-12] MEDS ORDERED: NS 100 ML (IVPB) BAG IV ONE (12:30)
--- NOTE | 2023-04-12 13:00 | Diagnostic Imaging Report ---
PROCEDURE: CT abdomen with contrast only. TECHNIQUE: Multiple contiguous axial images were obtained through the abdomen after the administration of intravenous contrast. Auto Exposure Controls were utilized during the CT exam to meet ALARA standards for radiation dose reduction. INDICATION: Abdominal pain with nausea and emesis. FINDINGS: No focal hepatic, gallbladder, pancreatic, adrenal gland, or splenic abnormality is seen. There may be a small hiatal hernia. Kidneys are also unremarkable. There is no free fluid or pathologically enlarged adenopathy. There is no evidence of osseous lesion. IMPRESSION: No evidence of acute abnormality. Dictated by: Dictated on workstation # [id number]
[2023-04-12] MEDS: ONDANSETRON INJECTION 4 MG/2 ML (SDV) IV PRN ×2 (14:09→23:28)
[2023-04-12] MEDS: PROCHLORPERAZINE INJ 10 MG/2ML VIAL IV PRN ×2 (14:14→23:27)
--- NOTE | 2023-04-12 15:22 | History & Physical-Hospitalist ---
History of Present Illness HPI/Chief Complaint Marcelino Chen is a 37 year old male with PMH HTN, T2DM, HLD, GERD, who presented with nausea and vomiting. He says it started Tuesday and has continued today. He also has diffuse abdominal pain. He reports chills. He denies diarrhea. He says he was started on Ozempic Tuesday. He has not taken any of his medications today. Source: patient Exam Limitations: no limitations Date Seen 04/12/23 Time Seen by a Provider: 11:20 Attending Physician Jaky Banuelos PCP Admitting Physician: Adri Jarvis MD Attending Physician: Adri Jarvis MD Referring Physician Date of Admission Apr 12, 2023 at 09:54 Home Medications & Allergies Home Medications Reviewed patient Home Medication Reconciliation performed by pharmacy medication reconciliations library circulation technician and/or nursing. Patients Allergies have been reviewed. Allergies Allergies Coded Allergies No Known Drug Allergies (Armehksbhh18/11/22) Past Ylowomr-Cxnktd-Onqomv Hx Patient Social History Tobacco Use?: No Smoking Status: Never a Smoker Use of E-Cig and/or Vaping dev: No Substance use?: No Substance type: Other Additional substance use comme: THC/CBD Substance frequency: Once in a while Alcohol Use?: Yes Alcohol type: Beer Alcohol Frequency: Once in a while Pt feels they are or have been: No Immunizations Up To Date First/Initial COVID19 Vaccinat: 2020 Second COVID19 Vaccination Zach: 2020 Seasonal Allergies Seasonal Allergies: Yes Current Status Advance Directives: No Advance Directive Location: Home Communicates: Verbally Primary Language: Nicaraguan Preferred Spoken Language: Nicaraguan Is interpretation needed?: No Sensory deficits: Vision impairment, Hearing impairment Implanted or Applied Medical D: None Past Medical History Surgeries: Ear Surgery, Orthopedic, Vasectomy High Cholesterol, Hypertension Gastroesophageal Reflux Diabetes, Insulin dep Blood Disorders: No Family Medical History No Pertinent Family Hx Review of Systems Constitutional: chills Cardiovascular: no symptoms reported Gastrointestinal: abdominal pain, nausea, vomiting Physical Exam Physical Exam Vital Signs Vital Signs - First Documented 04/12/23 07:33 Temp 36.8 Pulse 101 Resp 22 B/P (MAP) 171/119 (136) Pulse Ox 100 O2 Delivery Room Air Capillary Refill : Less Than 3 Seconds Height, Weight, BMI Height: '" Weight: lbs. oz. kg; 29.17 BMI Method: General Appearance: WD/WN, Mild Distress (uncomfortable) HEENT: PERRL/EOMI, Pharynx Normal Neck: Normal Inspection, Supple Respiratory: Lungs Clear, Normal Breath Sounds, No Respiratory Distress Cardiovascular: No Murmur, Tachycardia Gastrointestinal: Normal Bowel Sounds, Soft; No Distended, No Guarding; Tenderness Extremity: Normal Inspection, No Pedal Edema Neurologic/Psychiatric: Alert, No Motor/Sensory Deficits Skin: Warm/Dry, Erythema (facial) Results Results/Procedures Labs Laboratory Tests 04/12/23 07:40 Patient resulted labs reviewed. Imaging: Reviewed Imaging Films, Reviewed Imaging Report Assessment/Plan Admission Diagnosis Intractable nausea and vomiting Admission Status: Observation Assessment and Plan Intractable nausea and vomiting Possible medication side effect Recently started on Ozempic Antiemetics ordered CT without acute abnormalities IV fluids Pain regimen T2DM Sliding scale insulin HTN Continue Losartan Hydralazine as needed HLD GERD Hold home meds DVT prophylaxis: Lovenox Diagnosis/Problems Diagnosis/Problems (1) Intractable nausea and vomiting Status: Acute (2) Medication side effect Status: Acute (3) HTN (hypertension) Status: Acute (4) T2DM (type 2 diabetes mellitus) Status: Acute Qualifiers: Diabetes mellitus retirement insulin use: with retirement use (5) HLD (hyperlipidemia) Status: Chronic (6) GERD (gastroesophageal reflux disease) Status: Chronic Qualifiers: Esophagitis presence: esophagitis presence not specified Qualified Codes: K21.9 - Gastro-esophageal reflux disease without esophagitis ADRI JARVIS MD Apr 12, 2023 15:22
[2023-04-12] MEDS: ACETAMINOPHEN 325 MG TABLET PO PRN (15:57)
[2023-04-12 16:37] VITALS: BP 146/86
[2023-04-12] MEDS: PROMETHAZINE INJ 25 MG/ML VIAL IVP PRN (19:36)
[2023-04-12 20:36] VITALS: BP 164/95
[2023-04-12] MEDS: DOCUSATE SODIUM 100 MG CAPSULE PO SCH (21:09)
[2023-04-12] MEDS: SENNOSIDES 8.6 MG TABLET PO SCH (21:09)
[2023-04-12 23:31] VITALS: BP 173/91
[2023-04-13] VITALS (8 sets, daily range): BP systolic 134–188; BP diastolic 85–108
[2023-04-13] MEDS: NS IV 1000 ML 1,000 ML IV SCH ×6 (03:20→22:44)
[2023-04-13] MEDS: PROMETHAZINE INJ 25 MG/ML VIAL IVP PRN ×2 (04:59→11:20)
[2023-04-13] MEDS: hydrALAZINE INJECTION 20 MG/ML VIAL IV PRN ×2 (05:16→12:12)
[2023-04-13] MEDS: inSUlin ASPART 1 UNIT/0.01 ML (PER UNIT) SC SCH ×4 (05:17→21:04)
[2023-04-13 05:32] LABS: BASOPHILS % (AUTO) 0 % (0-10); EOSINOPHILS % (AUTO) 0 % (0-10); HEMATOCRIT 39 % (40-54); HEMOGLOBIN 13.4 g/dL (13.3-17.7); LYMPHOCYTES # (AUTO) 0.9 10^3/uL (1.0-4.0); LYMPHOCYTES % (AUTO) 17 % (12-44); MEAN CORPUSCULAR HEMOGLOBIN 30 pg (25-34); MEAN CORPUSCULAR HGB CONC 35 g/dL (32-36); MEAN CORPUSCULAR VOLUME 87 fL (80-99); MEAN PLATELET VOLUME 10.7 fL (9.0-12.2); MONOCYTES # (AUTO) 0.7 10^3/uL (0.0-1.0); MONOCYTES % (AUTO) 12 % (0-12); NEUTROPHILS # (AUTO) 3.8 10^3/uL (1.8-7.8); NEUTROPHILS % (AUTO) 70 % (42-75); PLATELET COUNT 185 10^3/uL (130-400); WHITE BLOOD COUNT 5.4 10^3/uL (4.3-11.0)
[2023-04-13 05:44] LABS: POTASSIUM 3.1 MMOL/L (3.6-5.0)
[2023-04-13 05:45] LABS: CALCIUM 8.8 MG/DL (8.5-10.1)
[2023-04-13 05:50] LABS: CREATININE SERUM 0.78 MG/DL (0.60-1.30)
[2023-04-13 05:52] LABS: MAGNESIUM 1.7 MG/DL (1.6-2.4)
[2023-04-13] MEDS: POTASSIUM BICARB 20 MEQ effervescent TABLET PO SCH (06:00)
[2023-04-13] MEDS: POTASSIUM CL 10MEQ/50ML IVPB 50 ML IV SCH ×9 (06:00→13:54)
[2023-04-13] MEDS: POTASSIUM CHLORIDE 20 MEQ TABLET PO SCH (06:00)
[2023-04-13] MEDS: MAGNESIUM 1 GM/100 ML IVPB 100 ML IV SCH ×5 (06:01→09:39)
[2023-04-13] MEDS: PROCHLORPERAZINE INJ 10 MG/2ML VIAL IV PRN (06:18)
[2023-04-13] MEDS ORDERED: LOSARTAN 25 MG TABLET PO NR (08:00)
[2023-04-13] MEDS ORDERED: POTASSIUM CHLORIDE 20 MEQ TABLET PO ONE ×2 (08:00→12:00)
[2023-04-13] MEDS ORDERED: LOSARTAN 25 MG TABLET PO SCH (09:00)
[2023-04-13] MEDS ORDERED: LOSARTAN 50 MG TABLET PO SCH (09:00)
[2023-04-13] MEDS: inSUlin DETERMIR 1 UNIT/0.01 ML (CHARGE PER UNIT) SQ SCH (09:38)
[2023-04-13] MEDS: DOCUSATE SODIUM 100 MG CAPSULE PO SCH ×2 (11:21→20:52)
[2023-04-13] MEDS: SENNOSIDES 8.6 MG TABLET PO SCH ×2 (11:21→20:53)
[2023-04-13] MEDS: amLODIPine 10 MG TABLET PO SCH (12:11)
[2023-04-13] MEDS: ENOXAPARIN 40 MG/0.4 ML SYRINGE SC SCH (12:12)
[2023-04-13] MEDS ORDERED: ONDA-105 PO (12:32)
[2023-04-13] MEDS ORDERED: CETI10TA17 PO (12:32)
[2023-04-13] MEDS ORDERED: INSU100I32 SC (12:32)
[2023-04-13] MEDS ORDERED: ATOR20TA66 PO (12:32)
[2023-04-13] MEDS: METOCLOPRAMIDE 5 MG TABLET PO SCH ×2 (17:11→21:04)
--- NOTE | 2023-04-13 18:19 | Progress Note - Hospitalist ---
Subjective HPI/CC On Admission Date Seen by Provider: Apr 13, 2023 Time Seen by Provider: 11:10 Marcelino Chen is a 37 year old male with PMH HTN, T2DM, HLD, GERD, who presented with nausea and vomiting. He says it started Tuesday and has continued today. He also has diffuse abdominal pain. He reports chills. He denies diarrhea. He says he was started on Ozempic Tuesday. He has not taken any of his medications today. Subjective/Events-last exam He is still nauseous. He reports anxiety. He has been hyperventilating. He and his request anxiety medication. Focused Exam Lactate Level 04/12/23 07:50: Lactic Acid Level 2.68*H 04/12/23 09:53: Lactic Acid Level 1.64 Objective Exam Vital Signs Vital Signs Date Time Temp Pulse Resp B/P (MAP) Pulse Ox O2 Delivery O2 Flow Rate FiO2 04/13/23 16:24 37.2 96 17 173/101 (125) 98 Room Air Capillary Refill : Less Than 3 Seconds General Appearance: WD/WN, Mild Distress (vomiting) Respiratory: Lungs Clear, No Respiratory Distress Cardiovascular: No Murmur, Tachycardia Gastrointestinal: Normal Bowel Sounds, Soft Extremity: Normal Inspection, No Pedal Edema Neurologic/Psychiatric: Alert, No Motor/Sensory Deficits Results/Procedures Lab Laboratory Tests 04/13/23 05:11 Patient resulted labs reviewed. Imaging: Reviewed Imaging Films, Reviewed Imaging Report Assessment/Plan Assessment and Plan Assess & Plan/Chief Complaint Intractable nausea and vomiting Medication side effect Possible gastroparesis Recently started on Ozempic Antiemetics ordered Begin Reglan CT without acute abnormalities IV fluids Pain regimen Anxiety Ativan as needed T2DM Sliding scale insulin HTN Increase Losartan Started on Amlodipine Hydralazine as needed HLD GERD Hold home meds DVT prophylaxis: Lovenox Diagnosis/Problems Diagnosis/Problems (1) Intractable nausea and vomiting Status: Acute (2) Medication side effect Status: Acute (3) HTN (hypertension) Status: Acute (4) T2DM (type 2 diabetes mellitus) Status: Acute Qualifiers: Diabetes mellitus prison insulin use: 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
[2023-04-14] MEDS: ONDANSETRON INJECTION 4 MG/2 ML (SDV) IV PRN ×3 (00:33→11:40)
[2023-04-14 04:45] VITALS: BP 145/78
[2023-04-14 05:50] LABS: BASOPHILS % (AUTO) 0 % (0-10); EOSINOPHILS % (AUTO) 0 % (0-10); HEMATOCRIT 38 % (40-54); HEMOGLOBIN 13.5 g/dL (13.3-17.7); LYMPHOCYTES % (AUTO) 18 % (12-44); MEAN CORPUSCULAR HEMOGLOBIN 31 pg (25-34); MEAN CORPUSCULAR HGB CONC 36 g/dL (32-36); MEAN CORPUSCULAR VOLUME 86 fL (80-99); MEAN PLATELET VOLUME 10.5 fL (9.0-12.2); MONOCYTES # (AUTO) 0.7 10^3/uL (0.0-1.0); MONOCYTES % (AUTO) 12 % (0-12); NEUTROPHILS % (AUTO) 70 % (42-75); PLATELET COUNT 193 10^3/uL (130-400); WHITE BLOOD COUNT 5.7 10^3/uL (4.3-11.0)
[2023-04-14] MEDS: NS IV 1000 ML 1,000 ML IV SCH ×3 (05:51→23:35)
[2023-04-14] MEDS: METOCLOPRAMIDE 5 MG TABLET PO SCH ×4 (05:51→19:53)
[2023-04-14 06:05] LABS: CALCIUM 8.4 MG/DL (8.5-10.1); CREATININE SERUM 0.73 MG/DL (0.60-1.30); MAGNESIUM 2.2 MG/DL (1.6-2.4); POTASSIUM 3.2 MMOL/L (3.6-5.0)
[2023-04-14] MEDS: MAGNESIUM 1 GM/100 ML IVPB 100 ML IV SCH (06:18)
[2023-04-14] MEDS: POTASSIUM BICARB 20 MEQ effervescent TABLET PO SCH (06:18)
[2023-04-14] MEDS: POTASSIUM CL 10MEQ/50ML IVPB 50 ML IV SCH ×9 (06:18→15:25)
[2023-04-14] MEDS: inSUlin ASPART 1 UNIT/0.01 ML (PER UNIT) SC SCH ×4 (06:19→19:54)
[2023-04-14] MEDS: POTASSIUM CHLORIDE 20 MEQ TABLET PO SCH (06:20)
[2023-04-14 07:36] VITALS: BP_SYST 112; BP_SYST 187; BP_DIAS 107; BP_DIAS 74
[2023-04-14] MEDS: PROCHLORPERAZINE INJ 10 MG/2ML VIAL IV PRN ×2 (08:14→17:55)
[2023-04-14] MEDS: DOCUSATE SODIUM 100 MG CAPSULE PO SCH ×2 (08:15→19:54)
[2023-04-14] MEDS: SENNOSIDES 8.6 MG TABLET PO SCH ×2 (08:15→19:54)
[2023-04-14] MEDS: amLODIPine 10 MG TABLET PO SCH (08:15)
[2023-04-14] MEDS: LOSARTAN 50 MG TABLET PO SCH (08:16)
[2023-04-14] MEDS: inSUlin DETERMIR 1 UNIT/0.01 ML (CHARGE PER UNIT) SQ SCH (08:16)
[2023-04-14] MEDS ORDERED: LOSARTAN 50 MG TABLET PO SCH (09:00)
[2023-04-14] MEDS ORDERED: POTASSIUM CL 10MEQ/50ML IVPB 50 ML IV SCH (10:00)
[2023-04-14] MEDS: ENOXAPARIN 40 MG/0.4 ML SYRINGE SC SCH (11:33)
[2023-04-14] MEDS: hydrALAZINE INJECTION 20 MG/ML VIAL IV PRN (11:58)
[2023-04-14 11:59] VITALS: BP 184/104
[2023-04-14 15:57] VITALS: BP 157/100
--- NOTE | 2023-04-14 16:17 | Progress Note - Hospitalist ---
Subjective HPI/CC On Admission Date Seen by Provider: Apr 14, 2023 Time Seen by Provider: 10:45 Marcelino Chen is a 37 year old male with PMH HTN, T2DM, HLD, GERD, who presented with nausea and vomiting. He says it started Tuesday and has continued today. He also has diffuse abdominal pain. He reports chills. He denies diarrhea. He says he was started on Ozempic Tuesday. He has not taken any of his medications today. Subjective/Events-last exam He remains nauseous. He has not vomited since his family showed up. He did vomit earlier this morning. He has not tried to eat or drink much. He is still having abdominal pain. Focused Exam Lactate Level 04/12/23 07:50: Lactic Acid Level 2.68*H 04/12/23 09:53: Lactic Acid Level 1.64 Objective Exam Vital Signs Vital Signs Date Time Temp Pulse Resp B/P (MAP) Pulse Ox O2 Delivery O2 Flow Rate FiO2 04/14/23 15:57 37.9 100 18 157/100 (119) 98 Room Air Capillary Refill : Less Than 3 Seconds General Appearance: No Apparent Distress, WD/WN Respiratory: Lungs Clear, No Respiratory Distress Cardiovascular: Regular Rate, Rhythm, No Murmur Gastrointestinal: Normal Bowel Sounds, Soft Extremity: Normal Inspection, No Pedal Edema Neurologic/Psychiatric: Alert, Normal Mood/Affect Results/Procedures Lab Laboratory Tests 04/14/23 05:10 Patient resulted labs reviewed. Imaging: Reviewed Imaging Films, Reviewed Imaging Report Assessment/Plan Assessment and Plan Assess & Plan/Chief Complaint Intractable nausea and vomiting Medication side effect Possible gastroparesis Recently started on Ozempic Schedule Zofran Antiemetics as needed CT without acute abnormalities IV fluids Pain regimen Anxiety Schedule Xanax Ativan as needed T2DM Sliding scale insulin HTN Increase Losartan Continue Amlodipine Hydralazine as needed HLD GERD Hold home meds DVT prophylaxis: Lovenox Diagnosis/Problems Diagnosis/Problems (1) Intractable nausea and vomiting Status: Acute (2) Medication side effect Status: Acute (3) HTN (hypertension) Status: Acute (4) T2DM (type 2 diabetes mellitus) Status: Acute Qualifiers: Diabetes mellitus detention 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
[2023-04-14] MEDS: ALPRAZolam 0.5 MG TABLET PO SCH ×2 (16:32→19:54)
[2023-04-14] MEDS: ONDANSETRON INJECTION 4 MG/2 ML (SDV) IV SCH ×2 (16:32→22:11)
[2023-04-14 16:44] LABS: ALBUMIN 3.9 GM/DL (3.2-4.5)
[2023-04-14 16:47] LABS: TOTAL PROTEIN 6.5 GM/DL (6.4-8.2)
[2023-04-14 16:49] LABS: BILIRUBIN,TOTAL 1.2 MG/DL (0.1-1.0)
[2023-04-14 16:52] LABS: BILIRUBIN,DIRECT 0.5 MG/DL (0.0-0.3); BILIRUBIN,INDIRECT 0.7 MG/DL
[2023-04-14] MEDS: meTOprolol INJECTION 5 MG/5 ML VIAL IV SCH ×2 (17:55→23:35)
[2023-04-14 19:37] VITALS: BP 153/96
[2023-04-14] MEDS: ACETAMINOPHEN 325 MG TABLET PO PRN (20:12)
[2023-04-14 23:33] VITALS: BP 173/92
[2023-04-15] VITALS (7 sets, daily range): BP systolic 144–180; BP diastolic 90–103
[2023-04-15] MEDS: ONDANSETRON INJECTION 4 MG/2 ML (SDV) IV SCH ×4 (03:21→21:33)
[2023-04-15] MEDS: METOCLOPRAMIDE 5 MG TABLET PO SCH ×4 (05:48→19:46)
[2023-04-15] MEDS: meTOprolol INJECTION 5 MG/5 ML VIAL IV SCH ×4 (05:54→23:25)
[2023-04-15 06:25] LABS: BASOPHILS % (AUTO) 0 % (0-10); EOSINOPHILS % (AUTO) 0 % (0-10); HEMATOCRIT 38 % (40-54); HEMOGLOBIN 13.1 g/dL (13.3-17.7); LYMPHOCYTES # (AUTO) 1.5 10^3/uL (1.0-4.0); LYMPHOCYTES % (AUTO) 26 % (12-44); MEAN CORPUSCULAR HEMOGLOBIN 30 pg (25-34); MEAN CORPUSCULAR HGB CONC 35 g/dL (32-36); MEAN CORPUSCULAR VOLUME 86 fL (80-99); MEAN PLATELET VOLUME 10.1 fL (9.0-12.2); MONOCYTES # (AUTO) 0.7 10^3/uL (0.0-1.0); MONOCYTES % (AUTO) 13 % (0-12); NEUTROPHILS # (AUTO) 3.4 10^3/uL (1.8-7.8); NEUTROPHILS % (AUTO) 60 % (42-75); PLATELET COUNT 226 10^3/uL (130-400); WHITE BLOOD COUNT 5.6 10^3/uL (4.3-11.0)
[2023-04-15] MEDS: inSUlin ASPART 1 UNIT/0.01 ML (PER UNIT) SC SCH ×4 (06:31→21:34)
[2023-04-15 06:42] LABS: CALCIUM 8.5 MG/DL (8.5-10.1); CREATININE SERUM 0.75 MG/DL (0.60-1.30); MAGNESIUM 2.1 MG/DL (1.6-2.4); POTASSIUM 3.4 MMOL/L (3.6-5.0)
[2023-04-15] MEDS: POTASSIUM CL 10MEQ/50ML IVPB 50 ML IV SCH ×5 (06:43→10:04)
[2023-04-15] MEDS: MAGNESIUM 1 GM/100 ML IVPB 100 ML IV SCH (06:43)
[2023-04-15] MEDS: POTASSIUM CHLORIDE 20 MEQ TABLET PO SCH (06:43)
[2023-04-15] MEDS: POTASSIUM BICARB 20 MEQ effervescent TABLET PO SCH (06:43)
[2023-04-15] MEDS: NS IV 1000 ML 1,000 ML IV SCH ×2 (08:06→19:45)
[2023-04-15] MEDS: PROCHLORPERAZINE INJ 10 MG/2ML VIAL IV PRN ×2 (08:06→23:25)
[2023-04-15] MEDS: amLODIPine 10 MG TABLET PO SCH (08:19)
[2023-04-15] MEDS: DOCUSATE SODIUM 100 MG CAPSULE PO SCH ×2 (08:19→19:46)
[2023-04-15] MEDS: LOSARTAN 50 MG TABLET PO SCH (08:19)
[2023-04-15] MEDS: ALPRAZolam 0.5 MG TABLET PO SCH ×3 (08:19→19:46)
[2023-04-15] MEDS: SENNOSIDES 8.6 MG TABLET PO SCH ×2 (08:20→19:46)
--- NOTE | 2023-04-15 09:37 | Diagnostic Imaging Report ---
PROCEDURE: US Gallbladder. INDICATION: Abdominal pain, nausea, vomiting TECHNIQUE: Multiple grayscale sonographic images were obtained of the right upper quadrant of the abdomen. CORRELATION STUDY: None FINDINGS: LIVER: Enlarged at 20.5 cm. No definitive focal lesion. The main portal vein is patent and with normal direction of flow. GALLBLADDER: The gallbladder demonstrates no definitive shadowing gallstones, abnormal gallbladder wall thickening or pericholecystic fluid. COMMON BILE DUCT: Nondilated at 0.3 cm. PANCREAS: Visualized portions appearing unremarkable. AORTA/IVC: Largely obscured and not well visualized. RIGHT KIDNEY: 13.3 x 6.7 x 4.9 cm. No hydronephrosis. OTHER: No right upper quadrant ascites. Examination is limited by overlying bowel gas and patient's abdominal pain. IMPRESSION: 1. Hepatomegaly. 2. Negative for gallstones or bile duct dilatation. Dictated by: Dictated on workstation # [id number]
[2023-04-15] MEDS: inSUlin DETERMIR 1 UNIT/0.01 ML (CHARGE PER UNIT) SQ SCH (10:04)
--- NOTE | 2023-04-15 10:22 | Consultation - Surgery ---
DEREK BROOKS 04/15/23 1022: History of Present Illness History of Present Illness Patient Consulted On(renetta/time) 04/15/23 10:21 Date Seen by Provider: Apr 15, 2023 Time Seen by Provider: 10:21 Reason for Visit: Consult from Dr. Borjas for persistent nausea and vomiting History of Present Illness Consult from Dr. Borjas. pt is a 37 yo male with persistent nausea and vomiting for the past 6 days. Vomiting to numerous to count since it started. Diffuse abd pain rated 8/10. Describes pain as sharp and crampy. Nothing makes the pain better and eating/drinking makes pain and vomiting worse. PMH is significant for T1DM, HTN, and chronic back pain. PSH includes vasectomy, foot surgery, tubes in ears as kids, and removed all his teeth. Has seasonal allergies, denies any others. No tobacco, drinks "socially", pt admits to using delta-8 THC gummies. Last time used greater than 1 week ago. Allergies and Home Medications Allergies Coded Allergies: No Known Drug Allergies (Unverified , 06/11/22) Patient Home Medication List Home Medication List Reviewed: Yes Atorvastatin Calcium (Atorvastatin Calcium) 20 Mg Tablet, 20 MG PO HS, (Reported) Entered as Reported by: ABHIJIT VANESSA on 04/13/23 123 Last Action: Reviewed Baclofen (Baclofen) 10 Mg Tablet, 10-20 MG PO BID PRN for MUSCLE CRAMPS, (Reported) Entered as Reported by: JACQUES JONES on 03/24/23 152 Last Action: Reviewed Cetirizine HCl (Cetirizine HCl) 10 Mg Tablet, 10 MG PO HS, (Reported) Entered as Reported by: ABHIJIT VANESSA on 04/13/23 123 Last Action: Reviewed Insulin Degludec (Tresiba Flextouch U-100) 100 Unit/Ml (3 Ml) Insuln.pen, 60 UNITS SC HS, (Reported) Entered as Reported by: ABHIJIT VANESSA on 04/13/23 123 Last Action: Reviewed Losartan Potassium (Losartan Potassium) 25 Mg Tablet, 12.5 MG PO HS, (Reported) Entered as Reported by: JACQUES JONES on 03/24/23 1522 Last Action: Reviewed Ondansetron HCl (Ondansetron HCl) 4 Mg Tablet, 4 MG PO Q4H PRN for NAUSEA/VOMITING-1ST LINE, (Reported) Entered as Reported by: ABHIJIT VANESSA on 04/13/23 1232 Last Action: Reviewed Pantoprazole Sodium (Pantoprazole Sodium) 40 Mg Tablet.dr, 40 MG PO HS, (Reported) Entered as Reported by: JACQUES JONES on 03/24/231521 Last Action: Reviewed Tadalafil (Tadalafil) 5 Mg Tablet, 5-10 MG PO UD PRN for ED, (Reported) Entered as Reported by: JACQUES JONES on 03/24/231521 Last Action: Reviewed Discontinued Medications Atorvastatin Calcium (Atorvastatin Calcium) 10 Mg Tablet, 10 MG PO HS, (Reported) Discontinued Reason: No Longer Taking Entered as Reported by: JACQUES JONES on 03/24/231521 Last Action: Discontinued Naproxen Sodium (Aleve) 220 Mg Capsule, 220 MG PO DAILY, (Reported) Discontinued Reason: No Longer Taking Entered as Reported by: JACQUES JONES on 03/24/231521 Last Action: Discontinued Past Rhkylym-Lsrvqq-Vfkvdt Hx Patient Social History Smoking Status: Never a Smoker Alcohol Use?: Yes ("social" drinker) Substance type: Marijuana (delta-8 gummies), Other Seasonal Allergies Seasonal Allergies: Yes Surgeries History of Surgeries: Yes (ORAL) Surgeries: Ear Surgery, Orthopedic (foot), Vasectomy Respiratory History of Respiratory Disorde: No Cardiovascular History of Cardiac Disorders: Yes Cardiac Disorders: High Cholesterol, Hypertension Neurological History of Neurological Disord: No Genitourinary History of Genitourinary Disor: No Gastrointestinal History of Gastrointestinal Di: Yes Gastrointestinal Disorders: Gastroesophageal Reflux Musculoskeletal History of Musculoskeletal Dis: Yes Musculoskeletal Disorders: Chronic Back Pain Endocrine History of Endocrine Disorders: Yes Endocrine Disorders: Diabetes, Insulin dep Cancer History of Cancer: No Psychosocial History of Psychiatric Problem: Yes (MEDICAL ANXIETY) Integumentary History of Skin or Integumenta: No Blood Transfusions History of Blood Disorders: No Family Medical History Significant Family History: No Pertinent Family Hx Review of Systems-General Constitutional: No chills, No diaphoresis EENTM: No ear pain, No blurred vision Respiratory: No cough, No dyspnea on exertion, No hemoptysis Cardiovascular: No chest pain, No edema Gastrointestinal: abdominal pain (diffuse abd pain), nausea, vomiting Genitourinary: No decreased output, No discharge Musculoskeletal: back pain (chronic); No gout Skin: No change in color, No change in hair/nails Psychiatric/Neurological: Anxiety (medical); Denies Depressed, Denies Headache All Other Systems Reviewed Negative Unless Noted: Yes Physical Exam-General Problems Physical Exam Vital Signs Vital Signs - First Documented 04/12/23 04/15/23 07:33 08:43 Temp 36.8 Pulse 101 Resp 22 B/P (MAP) 171/119 (136) Pulse Ox 100 O2 Delivery Room Air O2 Flow Rate 2.00 Capillary Refill : Less Than 3 Seconds General Appearance: WD/WN, moderate distress HEENT: PERRL/EOMI, TMs normal Neck: non-tender, supple Respiratory: chest non-tender, no respiratory distress, no accessory muscle use Cardiovascular: regular rate, rhythm, no JVD Gastrointestinal: No no pulsatile mass; tenderness Rectal: deferred Back: no CVA tenderness, no vertebral tenderness Extremities: non-tender, no pedal edema, no calf tenderness Neurologic/Psychiatric: alert, oriented x 3 Skin: normal color, warm/dry Lymphatic: no adenopathy Data Review Labs Laboratory Tests 04/14/23 11:25: Glucometer 165H 04/14/23 15:44: Glucometer 153H 04/14/23 19:29: Glucometer 130H 04/15/23 05:57: Glucometer 145H, White Blood Count 5.6, Red Blood Count 4.38, Hemoglobin 13.1L, Hematocrit 38L, Mean Corpuscular Volume 86, Mean Corpuscular Hemoglobin 30, Mean Corpuscular Hemoglobin Concent 35, Red Cell Distribution Width 12.7, Platelet Count 226, Mean Platelet Volume 10.1, Immature Granulocyte % (Auto) 1, Neutrophils (%) (Auto) 60, Lymphocytes (%) (Auto) 26, Monocytes (%) (Auto) 13H, Eosinophils (%) (Auto) 0, Basophils (%) (Auto) 0, Neutrophils # (Auto) 3.4, Lymphocytes # (Auto) 1.5, Monocytes # (Auto) 0.7, Eosinophils # (Auto) 0.0, Basophils # (Auto) 0.0, Immature Granulocyte # (Auto) 0.0, Sodium Level 133L, Potassium Level 3.4L, Chloride Level 104, Carbon Dioxide Level 22, Anion Gap 7, Blood Urea Nitrogen 9, Creatinine 0.75, Estimat Glomerular Filtration Rate 118, BUN/Creatinine Ratio 12, Glucose Level 142H, Calcium Level 8.5, Magnesium Level 2.1 04/15/23 09:45: Microbiology 04/12/23 Blood Culture - Preliminary, Resulted 04/12/23 Urine Culture - Final, Complete See Comments Assessment/Plan Assessment/Plan Assessment/Plan Consult from Dr. Borjas gallbladder dysfunction HTN T1DM UTI Nephrotic Syndrome Alkalosis HIDA Scan NPO IV fluid hydration and electrolytes managed by medicine Bilirubin quant JUAREZ SUAREZ DO 04/15/23 2011: History of Present Illness History of Present Illness History of Present Illness 37 year old male with nausea and vomiting for 6 days. Food makes worse and nohting really makes better. Has abdominal pain that is diffuse but also upper abdomen. 8/10 pain. Sharp/crampy. Had u/s done today which has no gb pathology. Allergies and Home Medications Allergies Coded Allergies: No Known Drug Allergies (Unverified , 06/11/22) Patient Home Medication List Home Medication List Reviewed: Yes Atorvastatin Calcium (Atorvastatin Calcium) 20 Mg Tablet, 20 MG PO HS, (Reported) Entered as Reported by: ABHIJIT VANESSA on 04/13/231231 Last Action: Reviewed Baclofen (Baclofen) 10 Mg Tablet, 10-20 MG PO BID PRN for MUSCLE CRAMPS, (Reported) Entered as Reported by: JACQUES JONES on 03/24/231521 Last Action: Reviewed Cetirizine HCl (Cetirizine HCl) 10 Mg Tablet, 10 MG PO HS, (Reported) Entered as Reported by: ABHIJIT VANESSA on 04/13/231231 Last Action: Reviewed Insulin Degludec (Tresiba Flextouch U-100) 100 Unit/Ml (3 Ml) Insuln.pen, 60 UNITS SC HS, (Reported) Entered as Reported by: ABHIJIT VANESSA on 04/13/231231 Last Action: Reviewed Losartan Potassium (Losartan Potassium) 25 Mg Tablet, 12.5 MG PO HS, (Reported) Entered as Reported by: JACQUES JONES on 03/24/231521 Last Action: Reviewed Ondansetron HCl (Ondansetron HCl) 4 Mg Tablet, 4 MG PO Q4H PRN for NAUSEA/VOMITING-1ST LINE, (Reported) Entered as Reported by: ABHIJIT VANESSA on 04/13/23 1232 Last Action: Reviewed Pantoprazole Sodium (Pantoprazole Sodium) 40 Mg Tablet.dr, 40 MG PO HS, (Reported) Entered as Reported by: JACQUES JONES on 03/24/231521 Last Action: Reviewed Tadalafil (Tadalafil) 5 Mg Tablet, 5-10 MG PO UD PRN for ED, (Reported) Entered as Reported by: JACQUES JONES on 03/24/231521 Last Action: Reviewed Discontinued Medications Atorvastatin Calcium (Atorvastatin Calcium) 10 Mg Tablet, 10 MG PO HS, (Reported) Discontinued Reason: No Longer Taking Entered as Reported by: JACQUES JONES on 03/24/231521 Last Action: Discontinued Naproxen Sodium (Aleve) 220 Mg Capsule, 220 MG PO DAILY, (Reported) Discontinued Reason: No Longer Taking Entered as Reported by: JACQUES JONES on 03/24/231521 Last Action: Discontinued Past Lhmfirk-Wpifes-Oeppfz Hx Reviewed Nursing Assessment Reviewed/Agree w Nursing PMH: Yes Family Medical History Significant Family History: No Pertinent Family Hx Review of Systems-General Constitutional: No chills, No diaphoresis EENTM: No ear pain, No blurred vision Respiratory: No cough, No dyspnea on exertion, No hemoptysis Cardiovascular: No chest pain Gastrointestinal: abdominal pain (diffuse abd pain/upper), nausea, vomiting Genitourinary: No decreased output, No discharge Musculoskeletal: back pain (chronic) Skin: No change in color, No change in hair/nails Psychiatric/Neurological: Anxiety (medical); Denies Depressed, Denies Headache All Other Systems Reviewed Negative Unless Noted: Yes (Negative excepted noted.) Physical Exam-General Problems Physical Exam General Appearance: WD/WN, no apparent distress HEENT: PERRL/EOMI, normal ENT inspection, TMs normal Neck: non-tender, supple Respiratory: chest non-tender, no respiratory distress, no accessory muscle use Cardiovascular: regular rate, rhythm, no JVD Gastrointestinal: soft, tenderness (upper abdomen minimal) Rectal: deferred Back: no CVA tenderness, no vertebral tenderness Extremities: non-tender, no pedal edema Neurologic/Psychiatric: alert, normal mood/affect, oriented x 3 Skin: normal color, warm/dry Lymphatic: no adenopathy Assessment/Plan Assessment/Plan Assessment/Plan nausea/vomiting upper abodminal pain suspect gallbladder dysfunction HTN T1DM Patient u/s reviewed and no pathology on u/s. Will get HIDA scan to further evaluate to make sure symptoms not related to gallbladder NPO No narcotics for HIDA Update: HIDA with EF of 10% This is consistent with biliary dyskinesia which is likely causing his symptoms Consent for laparoscopic cholecystectomy with intraoperative cholangiogram all indicated procedures. NPO after midnight TO OR Tomorrow. Supervisory-Addendum Brief Verification & Attestation Participated in pt care: history, MDM, physical Personally performed: exam, history, MDM, supervision of care Care discussed with: Medical Student Procedures: n/a Results interpretation: Verified all documentation Verification and Attestation of Medical Student E/M Service A medical student performed and documented this service in my presence. I reviewed and verified all information documented by the medical student and made modifications to such information, when appropriate. I personally performed the physical exam and medical decision making. Juarez Suarez, Apr 15, 2023,20:12 DEREK BROOKS Apr 15, 2023 10:22 JUAREZ SUAREZ DO Apr 15, 2023 20:11
[2023-04-15] MEDS: ENOXAPARIN 40 MG/0.4 ML SYRINGE SC SCH (13:02)
[2023-04-15] MEDS: ACETAMINOPHEN 325 MG TABLET PO PRN (15:44)
--- NOTE | 2023-04-15 15:49 | Diagnostic Imaging Report ---
NUCLEAR MEDICINE HIDA SCAN WITH Ensure: HISTORY: Right upper quadrant pain. TECHNIQUE: Following the intravenous administration of 5.5 mCi of Tc-99m Choletec, anterior imaging of the upper abdomen was performed for 60 minutes. At 60 minutes, Ensure was given. Gallbladder ejection fraction was calculated. FINDINGS: There is prompt and complete hepatic uptake. No photopenic defects. There is prompt visualization of the biliary tree, gallbladder and small bowel. The gallbladder ejection fraction is 10% which is normal. (Reference: Normal gallbladder ejection is greater than 35%). IMPRESSION: Low gallbladder ejection fraction. Dictated by: Dictated on workstation # [id number]
[2023-04-15] MEDS ORDERED: SCOPOLAMINE 1.5 MG PATCH TD ONE (16:00)
--- NOTE | 2023-04-15 17:05 | Progress Note - Hospitalist ---
Subjective HPI/CC On Admission Date Seen by Provider: Apr 15, 2023 Time Seen by Provider: 09:30 Marcelino Chen is a 37 year old male with PMH HTN, T2DM, HLD, GERD, who presented with nausea and vomiting. He says it started Tuesday and has continued today. He also has diffuse abdominal pain. He reports chills. He denies diarrhea. He says he was started on Ozempic Tuesday. He has not taken any of his medications today. Subjective/Events-last exam He continues to have nausea and vomiting. He has not been able to keep anything down. He is still having abdominal pain. He denies fevers and chills. He denies headaches. He has no chest pain or shortness of breath. Objective Exam Vital Signs Vital Signs Date Time Temp Pulse Resp B/P (MAP) Pulse Ox O2 Delivery O2 Flow Rate FiO2 04/15/23 15:30 37.2 98 18 167/98 (121) 100 Room Air 04/15/23 08:43 2.00 Capillary Refill : Less Than 3 Seconds General Appearance: WD/WN, Mild Distress (uncomfortable) Respiratory: Lungs Clear, No Respiratory Distress Cardiovascular: Regular Rate, Rhythm, No Murmur Gastrointestinal: Normal Bowel Sounds, Soft, Tenderness Extremity: Normal Inspection, No Pedal Edema Neurologic/Psychiatric: Alert, Normal Mood/Affect Results/Procedures Lab Laboratory Tests 04/15/23 05:57 Patient resulted labs reviewed. Imaging: Reviewed Imaging Films, Reviewed Imaging Report Assessment/Plan Assessment and Plan Assess & Plan/Chief Complaint Intractable nausea and vomiting Medication side effect Possible gastroparesis Recently started on Ozempic CT without acute abnormalities Gallbladder ultrasound negative HIDA scan with normal EF IV fluids Antiemetics Add Scopolamine patch Pain regimen Anxiety Xanax Ativan as needed T2DM Sliding scale insulin HTN Metoprolol Continue Losartan and Amlodipine Hydralazine as needed HLD GERD Hold home meds DVT prophylaxis: Lovenox Diagnosis/Problems Diagnosis/Problems (1) Intractable nausea and vomiting Status: Acute (2) Medication side effect Status: Acute (3) HTN (hypertension) Status: Acute (4) T2DM (type 2 diabetes mellitus) Status: Acute Qualifiers: Diabetes mellitus mcc insulin use: with mcc use (5) HLD (hyperlipidemia) Status: Chronic (6) GERD (gastroesophageal reflux disease) Status: Chronic Qualifiers: Esophagitis presence: esophagitis presence not specified Qualified Codes: K21.9 - Gastro-esophageal reflux disease without esophagitis (7) Anxiety Status: Acute ADRI JARVIS MD Apr 15, 2023 17:05
[2023-04-15] MEDS: LIDOCAINE 4% PATCH TOP SCH (17:07)
[2023-04-15] MEDS: LIDOCAINE PATCH REMOVAL TP SCH (23:25)
[2023-04-16] VITALS (13 sets, daily range): BP systolic 113–192; BP diastolic 68–117
[2023-04-16] MEDS: ACETAMINOPHEN 325 MG TABLET PO PRN ×2 (01:28→07:35)
[2023-04-16] MEDS: NS IV 1000 ML 1,000 ML IV SCH ×3 (04:20→20:47)
[2023-04-16] MEDS: ONDANSETRON INJECTION 4 MG/2 ML (SDV) IV SCH ×4 (04:22→20:47)
[2023-04-16] MEDS: meTOprolol INJECTION 5 MG/5 ML VIAL IV SCH ×4 (05:18→23:05)
[2023-04-16] MEDS: METOCLOPRAMIDE 5 MG TABLET PO SCH ×4 (05:22→20:45)
[2023-04-16] MEDS: POTASSIUM BICARB 20 MEQ effervescent TABLET PO SCH (05:22)
[2023-04-16] MEDS: POTASSIUM CHLORIDE 20 MEQ TABLET PO SCH (05:22)
[2023-04-16 05:33] LABS: BASOPHILS % (AUTO) 0 % (0-10); EOSINOPHILS # (AUTO) 0.1 10^3/uL (0.0-0.3); EOSINOPHILS % (AUTO) 1 % (0-10); HEMATOCRIT 35 % (40-54); HEMOGLOBIN 12.7 g/dL (13.3-17.7); LYMPHOCYTES # (AUTO) 1.7 10^3/uL (1.0-4.0); LYMPHOCYTES % (AUTO) 32 % (12-44); MEAN CORPUSCULAR HEMOGLOBIN 31 pg (25-34); MEAN CORPUSCULAR HGB CONC 36 g/dL (32-36); MEAN CORPUSCULAR VOLUME 85 fL (80-99); MONOCYTES # (AUTO) 0.6 10^3/uL (0.0-1.0); MONOCYTES % (AUTO) 11 % (0-12); NEUTROPHILS # (AUTO) 2.9 10^3/uL (1.8-7.8); NEUTROPHILS % (AUTO) 55 % (42-75); PLATELET COUNT 207 10^3/uL (130-400); WHITE BLOOD COUNT 5.2 10^3/uL (4.3-11.0)
[2023-04-16 06:06] LABS: CALCIUM 8.3 MG/DL (8.5-10.1); CREATININE SERUM 0.74 MG/DL (0.60-1.30); MAGNESIUM 1.9 MG/DL (1.6-2.4)
[2023-04-16] MEDS: MAGNESIUM 1 GM/100 ML IVPB 100 ML IV SCH ×3 (06:23→07:35)
[2023-04-16] MEDS: inSUlin ASPART 1 UNIT/0.01 ML (PER UNIT) SC SCH ×4 (06:32→20:47)
[2023-04-16] MEDS: POTASSIUM CL 10MEQ/50ML IVPB 50 ML IV SCH ×9 (06:38→20:47)
--- NOTE | 2023-04-16 06:57 | Progress Note - Surgery ---
DEREK BROOKS 04/16/23 0657: Subjective Date Seen by a Provider: Apr 16, 2023 Time Seen by a Provider: 06:52 Subjective/Events-last exam Pt with some nausea still. No vomiting reported. NPO since midnight. Abd tenderness described as "uncomfortable". No rebound tenderness, guarding, rigidity. Abd is soft. No fever, shortness of breath, chest pain. There is prompt and complete hepatic uptake. No photopenic defects. There is prompt visualization of the biliary tree, gallbladder and small bowel. The gallbladder ejection fraction is 10% which is (ab)normal. Review of Systems General: No Night Sweats, No Fatigue HEENT: No Head Aches, No Visual Changes Pulmonary: No Dyspnea, No Cough Cardiovascular: No: Chest Pain, Palpitations Gastrointestinal: Nausea, Abdominal Pain (minimal, "uncomfortable"); No: Vomiting Genitourinary: No Dysuria, No Frequency Musculoskeletal: No: shoulder pain, back pain Neurological: No: Weakness, Numbness Objective Exam Vital Signs Date Time Temp Pulse Resp B/P (MAP) Pulse Ox O2 Delivery O2 Flow Rate FiO2 04/16/23 06:05 Room Air 0.00 04/16/23 04:23 36.9 72 20 144/91 (108) 98 Room Air 04/16/23 01:22 90 04/15/23 23:33 37.2 90 18 156/103 (120) 98 Room Air 04/15/23 19:54 Room Air 04/15/23 19:40 37.1 87 18 156/90 (112) 99 Room Air 04/15/23 19:21 91 04/15/23 15:30 37.2 98 18 167/98 (121) 100 Room Air 04/15/23 12:47 75 04/15/23 12:27 37.3 78 14 158/93 (114) 99 Room Air 04/15/23 08:49 Room Air 04/15/23 08:43 36.3 68 16 144/90 (108) 95 2.00 04/15/23 08:28 37.2 79 14 180/101 (127) 100 Room Air 04/15/23 07:00 73 I & O 04/16/23 07:00 Intake Total 3920 ml Balance 3920 ml Capillary Refill : Less Than 3 Seconds General Appearance: WD/WN, Mild Distress (uncomfortable) HEENT: PERRL/EOMI, Pharynx Normal Neck: Normal Inspection, Supple Respiratory: Lungs Clear, No Accessory Muscle Use, No Respiratory Distress Cardiovascular: Regular Rate, Rhythm, No Murmur Gastrointestinal: soft, tenderness (upper abdomen minimal) Extremity: Normal Inspection, No Pedal Edema Neurologic/Psychiatric: Alert, Oriented x3, Normal Mood/Affect Skin: Warm/Dry, Erythema (facial) Results Lab Laboratory Tests 04/15/23 16:12: Influenza Type A (RT-PCR) Not Detected, Influenza Type B (RT-PCR) Not Detected, SARS-CoV-2 RNA (RT-PCR) Not Detected 04/16/23 05:15: White Blood Count 5.2, Red Blood Count 4.14L, Hemoglobin 12.7L, Hematocrit 35L, Mean Corpuscular Volume 85, Mean Corpuscular Hemoglobin 31, Mean Corpuscular Hemoglobin Concent 36, Red Cell Distribution Width 12.9, Platelet Count 207, Mean Platelet Volume 10.0, Immature Granulocyte % (Auto) 1, Neutrophils (%) (Auto) 55, Lymphocytes (%) (Auto) 32, Monocytes (%) (Auto) 11, Eosinophils (%) (Auto) 1, Basophils (%) (Auto) 0, Neutrophils # (Auto) 2.9, Lymphocytes # (Auto) 1.7, Monocytes # (Auto) 0.6, Eosinophils # (Auto) 0.1, Basophils # (Auto) 0.0, Immature Granulocyte # (Auto) 0.0, Sodium Level 136, Potassium Level 3.0L, Chloride Level 106, Carbon Dioxide Level 22, Anion Gap 8, Blood Urea Nitrogen 10, Creatinine 0.74, Estimat Glomerular Filtration Rate 118, BUN/Creatinine Ratio 14, Glucose Level 124H, Calcium Level 8.3L, Magnesium Level 1.9 Microbiology 04/12/23 Blood Culture - Preliminary, Resulted 04/12/23 Urine Culture - Final, Complete See Comments Assessment/Plan Assessment/Plan Assessment/Plan nausea/vomiting upper abodminal pain biliary dyskinesia HTN T1DM hypokalemia HIDA with EF of 10% (04/15/23) Consent for laparoscopic cholecystectomy with intraoperative cholangiogram all indicated procedures. IV fluids Regular diet as tolerated post surgery No lifting more than 10lbs for 2 weeks follow up if increasing pain at incision sites last dose enoxaparin @1300 04/15/23, ok for surgery SHAUNNA TOVAR DO 04/16/23 0748: Subjective Subjective/Events-last exam Still with nausea and upper abdominal pain. NPO. Denies fever sweats chills shortness of breath or chest pain. HIDA with EF of 10%. Objective Exam General Appearance: No Apparent Distress, Anxious HEENT: PERRL/EOMI, Normal ENT Inspection Neck: Normal Inspection, Supple Respiratory: Chest Non Tender, No Accessory Muscle Use, No Respiratory Distress Cardiovascular: Regular Rate, Rhythm, No JVD Gastrointestinal: soft, tenderness (upper abdomen minimal) Extremity: Normal Inspection, Non Tender Neurologic/Psychiatric: Alert, Oriented x3, Normal Mood/Affect Skin: Normal Color, Warm/Dry Lymphatic: No Adenopathy Assessment/Plan Assessment/Plan Assessment/Plan nausea/vomiting upper abdominal pain biliary dyskinesia HTN T1DM hypokalemia HIDA with EF of 10% (04/15/23) Consent for laparoscopic cholecystectomy with intraoperative cholangiogram all indicated procedures. IV fluids NPO Ancef preop Supervisory-Addendum Brief Verification & Attestation Participated in pt care: history, MDM, physical Personally performed: exam, history, MDM, supervision of care Care discussed with: Medical Student Procedures: n/a Results interpretation: Verified all documentation Verification and Attestation of Medical Student E/M Service A medical student performed and documented this service in my presence. I reviewed and verified all information documented by the medical student and made modifications to such information, when appropriate. I personally performed the physical exam and medical decision making. Shaunna Tovar, Apr 16, 2023,07:48 DEREK BROOKS Apr 16, 2023 06:57 SHAUNNA TOVAR DO Apr 16, 2023 07:48
--- NOTE | 2023-04-16 07:25 | Progress Note - Surgery ---
Subjective Date Seen by a Provider: Apr 16, 2023 Time Seen by a Provider: 07:25 Objective Exam Vital Signs Date Time Temp Pulse Resp B/P (MAP) Pulse Ox O2 Delivery O2 Flow Rate FiO2 04/16/23 07:00 76 04/16/23 06:05 Room Air 0.00 04/16/23 04:23 36.9 72 20 144/91 (108) 98 Room Air 04/16/23 01:22 90 04/15/23 23:33 37.2 90 18 156/103 (120) 98 Room Air 04/15/23 19:54 Room Air 04/15/23 19:40 37.1 87 18 156/90 (112) 99 Room Air 04/15/23 19:21 91 04/15/23 15:30 37.2 98 18 167/98 (121) 100 Room Air 04/15/23 12:47 75 04/15/23 12:27 37.3 78 14 158/93 (114) 99 Room Air 04/15/23 08:49 Room Air 04/15/23 08:43 36.3 68 16 144/90 (108) 95 2.00 04/15/23 08:28 37.2 79 14 180/101 (127) 100 Room Air I & O 04/16/23 07:00 Intake Total 3920 ml Balance 3920 ml Capillary Refill : Less Than 3 Seconds General Appearance: WD/WN, Mild Distress (uncomfortable) HEENT: PERRL/EOMI, Pharynx Normal Neck: Normal Inspection, Supple Respiratory: Lungs Clear, No Accessory Muscle Use, No Respiratory Distress Cardiovascular: Regular Rate, Rhythm, No Murmur Gastrointestinal: soft, tenderness (upper abdomen minimal) Extremity: Normal Inspection, No Pedal Edema Neurologic/Psychiatric: Alert, Oriented x3, Normal Mood/Affect Skin: Warm/Dry, Erythema (facial) Results Lab Laboratory Tests 04/15/23 16:12: Influenza Type A (RT-PCR) Not Detected, Influenza Type B (RT-PCR) Not Detected, SARS-CoV-2 RNA (RT-PCR) Not Detected 04/16/23 05:15: White Blood Count 5.2, Red Blood Count 4.14L, Hemoglobin 12.7L, Hematocrit 35L, Mean Corpuscular Volume 85, Mean Corpuscular Hemoglobin 31, Mean Corpuscular Hemoglobin Concent 36, Red Cell Distribution Width 12.9, Platelet Count 207, Mean Platelet Volume 10.0, Immature Granulocyte % (Auto) 1, Neutrophils (%) (Auto) 55, Lymphocytes (%) (Auto) 32, Monocytes (%) (Auto) 11, Eosinophils (%) (Auto) 1, Basophils (%) (Auto) 0, Neutrophils # (Auto) 2.9, Lymphocytes # (Auto) 1.7, Monocytes # (Auto) 0.6, Eosinophils # (Auto) 0.1, Basophils # (Auto) 0.0, Immature Granulocyte # (Auto) 0.0, Sodium Level 136, Potassium Level 3.0L, Chloride Level 106, Carbon Dioxide Level 22, Anion Gap 8, Blood Urea Nitrogen 10, Creatinine 0.74, Estimat Glomerular Filtration Rate 118, BUN/Creatinine Ratio 14, Glucose Level 124H, Calcium Level 8.3L, Magnesium Level 1.9 Microbiology 04/12/23 Blood Culture - Preliminary, Resulted 04/12/23 Urine Culture - Final, Complete See Comments Assessment/Plan Assessment/Plan Assessment/Plan nausea/vomiting upper abodminal pain biliary dyskinesia HTN T1DM hypokalemia HIDA with EF of 10% (04/15/23) Consent for laparoscopic cholecystectomy with intraoperative cholangiogram all indicated procedures. IV fluids Regular diet as tolerated post surgery No lifting more than 10lbs for 2 weeks follow up if increasing pain at incision sites last dose enoxaparin @1300 04/15/23, ok for surgery SHAUNNA SUAREZ DO Apr 16, 2023 07:25
[2023-04-16] MEDS: DOCUSATE SODIUM 100 MG CAPSULE PO SCH ×2 (07:44→19:09)
[2023-04-16] MEDS: amLODIPine 10 MG TABLET PO SCH (07:44)
[2023-04-16] MEDS: ALPRAZolam 0.5 MG TABLET PO SCH ×3 (07:44→20:45)
[2023-04-16] MEDS: SENNOSIDES 8.6 MG TABLET PO SCH ×2 (07:45→19:09)
[2023-04-16] MEDS: LOSARTAN 50 MG TABLET PO SCH (07:45)
[2023-04-16] MEDS ORDERED: ceFAZolin INJECTION 2,000 MG in NS (IVPB) 50 ML 50 ML IV ONE (08:00)
[2023-04-16] MEDS: LIDOCAINE 4% PATCH TOP SCH (09:27)
[2023-04-16] MEDS: inSUlin DETERMIR 1 UNIT/0.01 ML (CHARGE PER UNIT) SQ SCH (09:27)
[2023-04-16] MEDS: PROCHLORPERAZINE INJ 10 MG/2ML VIAL IV PRN (09:28)
[2023-04-16] MEDS ORDERED: ceFAZolin INJECTION 2,000 MG ONE ×2 (10:50→17:54)
[2023-04-16] MEDS ORDERED: fentaNYL INJECTION 100 MCG/2 ML VIAL ONE (10:53)
[2023-04-16] MEDS ORDERED: MIDAZOLAM INJ 2 MG/2 ML VIAL ONE (10:53)
[2023-04-16] MEDS: ENOXAPARIN 40 MG/0.4 ML SYRINGE SC SCH (10:57)
[2023-04-16] MEDS ORDERED: LIDOCAINE/EPI 1%-1:200,000 (XYLOCAINE) 30 ML VIAL ONE (11:03)
[2023-04-16] MEDS ORDERED: HYDROmorphone INJECTION 2 MG/ML VIAL ONE (12:07)
[2023-04-16] MEDS ORDERED: proPOfol INJECTION 200 MG/20 ML VIAL IV ONE (12:07)
[2023-04-16] MEDS ORDERED: ONDANSETRON INJECTION 4 MG/2 ML (SDV) ONE (12:07)
[2023-04-16] MEDS ORDERED: LIDOCAINE PF 2% 5 ML VIAL ONE (12:07)
[2023-04-16] MEDS ORDERED: ROCURONIUM 50 MG/5 ML VIAL IV ONE (12:07)
[2023-04-16] MEDS ORDERED: NEOSTIGMINE 1 MG/1ML 10 ML VIAL ONE (12:57)
[2023-04-16] MEDS ORDERED: GLYCOPYRROLATE INJ 0.2 MG/ML 2 ML VIAL ONE (12:57)
[2023-04-16] MEDS ORDERED: SEVOFLURANE (ULTANE) 15 ML INHAL SOLN ONE (13:07)
--- NOTE | 2023-04-16 13:22 | Diagnostic Imaging Report ---
INDICATION: Intraoperative fluoroscopy during cholecystectomy. COMPARISON: None available. IMPRESSION: Images show intraoperative cholangiogram with early opacification of the remnant cystic duct as well as common bile duct with spillage into the 2nd portion of duodenum. During the later phases of the cholangiogram, there is contrast spilling around the access site. Air Kerma is 8.71 mGy. Please see procedure report for more details. Dictated by: Dictated on workstation # [id number]
--- NOTE | 2023-04-16 13:25 | Progress Note-Post Operative ---
Post-Operative Progess Note Surgeon (s)/Division Road Supervisor (s) Surgeon SHAUNNA SUAREZ DO Division Road Supervisor: Dr. Leon Pre-Operative Diagnosis biliary dyskinesia, nausea and vomiting Post-Operative Diagnosis same Procedure & Operative Findings Date of Procedure 04/16/23 Procedure Performed/Findings lap fabiola c ioc Anesthesia Type general Estimated Blood Loss Estimated blood loss (mL): minimal Specimens/Packing Specimens Removed gallbladder, liver SHAUNNA SUAREZ DO Apr 16, 2023 13:25
--- NOTE | 2023-04-16 13:37 | Anesthesia-General Post-Op ---
General Patient Condition Mental Status/LOC: Same as Preop Cardiovascular: Satisfactory Nausea/Vomiting: Absent Respiratory: Satisfactory Pain: Controlled Complications: Absent Post Op Complications Complications None Follow Up Care/Instructions Patient Instructions None needed. Anesthesia/Patient Condition Patient Condition Patient is doing well, no complaints, stable vital signs, no apparent adverse anesthesia problems. No complications reported per nursing. NORY MENDEZ CRNA Apr 16, 2023 13:37
[2023-04-16] MEDS ORDERED: ACHD5005 PO (13:39)
[2023-04-16] MEDS ORDERED: DOCU-143 PO (13:39)
--- NOTE | 2023-04-16 13:40 | Discharge Inst-Simple/Standard ---
Discharge Inst-Standard Discharge Medications New, Converted or Re-Newed RX: Transmitted to Pharmacy Patient Instructions/Follow Up Plan of Care/Instructions/FU: 2 weeks La Activity as Tolerated: No Discharge Diet: Regular Diet Other Inst to Patient Follow up Appt: Make appointment for 2 weeks La. Instructions: No lifting greater than 10 pounds. No strenuous activity. May shower in 24 hours, no tub bath or soaking. Use incentive spirometer at home as directed. No Smoking Skin/Wound Care: You have special glue over incision, it will fall off on it's own. Symptoms to Report: Appetite Changes, Extremity Discoloration, Numbness/Tingling, Swelling Increased, Bleeding Excessive, Eyesight Changes, Pain Increased, Urine Color Change, Constipation(Persistent), Fever over 101 degree F, Pain/Pressure in chest, Urinating Difficulty, Cough Up/Vomit Blood, Heart Beat Irreg/Pounding, Pain/Pressure in jaw, Vaginal Bleeding Increase, Cramps in feet or legs, Lightheadedness, Pain/Pressure in shoulder, Diarrhea(Persistent), Memory Changes Suddenly, Questions/Concerns, Weight gain consecutive days, Dizziness/Fainting, Nausea/Vomiting, Shortness of Breath, Weight gain over 2 pounds. If eyes or skin turn yellow notify physician. If questions or concerns contact your physician Or seek help at emergency department. SHAUNNA SUAREZ DO Apr 16, 2023 13:40
[2023-04-16] MEDS ORDERED: ONDANSETRON INJECTION 4 MG/2 ML (SDV) IVP PRN (13:45)
[2023-04-16] MEDS ORDERED: HYDROmorphone INJECTION 2 MG/ML VIAL IV ONE (13:45)
[2023-04-16] MEDS ORDERED: PROMETHAZINE INJ 25 MG/ML VIAL IVP ONE (13:45)
[2023-04-16] MEDS ORDERED: MEPERIDINE INJ 50 MG/ML VIAL IVP ONE (13:45)
[2023-04-16] MEDS: HYDROmorphone INJECTION 2 MG/ML VIAL IV PRN (15:19)
[2023-04-16] MEDS: HYDROcodone/ACETAMINOPHEN 5 MG/325 MG TABLET PO PRN ×2 (17:03→20:45)
[2023-04-16] MEDS ORDERED: NS (IVPB) 50 ML 50 ML ONE (17:55)
[2023-04-16] MEDS: ceFAZolin INJECTION 2,000 MG in NS (IVPB) 50 ML 50 ML IV SCH (18:18)
[2023-04-16] MEDS: LIDOCAINE PATCH REMOVAL TP SCH (22:37)
[2023-04-17] MEDS: HYDROcodone/ACETAMINOPHEN 5 MG/325 MG TABLET PO PRN ×2 (00:23→05:15)
[2023-04-17] MEDS: ONDANSETRON INJECTION 4 MG/2 ML (SDV) IV SCH ×2 (02:56→09:48)
[2023-04-17] MEDS: ceFAZolin INJECTION 2,000 MG in NS (IVPB) 50 ML 50 ML IV SCH (02:57)
[2023-04-17 03:10] LABS: BASOPHILS % (AUTO) 0 % (0-10); EOSINOPHILS % (AUTO) 0 % (0-10); HEMATOCRIT 29 % (40-54); HEMOGLOBIN 10.2 g/dL (13.3-17.7); LYMPHOCYTES # (AUTO) 1.5 10^3/uL (1.0-4.0); LYMPHOCYTES % (AUTO) 15 % (12-44); MEAN CORPUSCULAR HEMOGLOBIN 31 pg (25-34); MEAN CORPUSCULAR HGB CONC 35 g/dL (32-36); MEAN CORPUSCULAR VOLUME 87 fL (80-99); MEAN PLATELET VOLUME 10.4 fL (9.0-12.2); MONOCYTES # (AUTO) 0.9 10^3/uL (0.0-1.0); MONOCYTES % (AUTO) 9 % (0-12); NEUTROPHILS # (AUTO) 7.4 10^3/uL (1.8-7.8); NEUTROPHILS % (AUTO) 75 % (42-75); PLATELET COUNT 229 10^3/uL (130-400); WHITE BLOOD COUNT 9.8 10^3/uL (4.3-11.0)
[2023-04-17] MEDS: HYDROmorphone INJECTION 2 MG/ML VIAL IV PRN (03:11)
[2023-04-17] MEDS: NS IV 1000 ML 1,000 ML IV SCH ×3 (03:12→12:30)
[2023-04-17 03:28] LABS: CREATININE SERUM 0.9 MG/DL (0.60-1.30); POTASSIUM 4.6 MMOL/L (3.6-5.0)
[2023-04-17] MEDS: POTASSIUM CL 10MEQ/50ML IVPB 50 ML IV SCH (03:39)
[2023-04-17] MEDS: MAGNESIUM 1 GM/100 ML IVPB 100 ML IV SCH (03:39)
[2023-04-17] MEDS: POTASSIUM BICARB 20 MEQ effervescent TABLET PO SCH (03:40)
[2023-04-17] MEDS: POTASSIUM CHLORIDE 20 MEQ TABLET PO SCH (03:41)
[2023-04-17 04:59] VITALS: BP 118/73
[2023-04-17] MEDS: METOCLOPRAMIDE 5 MG TABLET PO SCH ×2 (05:15→11:27)
[2023-04-17] MEDS: inSUlin ASPART 1 UNIT/0.01 ML (PER UNIT) SC SCH ×2 (05:15→12:33)
[2023-04-17] MEDS: meTOprolol INJECTION 5 MG/5 ML VIAL IV SCH (05:15)
[2023-04-17 08:20] VITALS: BP 123/81
[2023-04-17] MEDS: ALPRAZolam 0.5 MG TABLET PO SCH ×2 (08:36→12:30)
[2023-04-17] MEDS: amLODIPine 10 MG TABLET PO SCH (08:37)
[2023-04-17] MEDS: LIDOCAINE 4% PATCH TOP SCH (08:37)
[2023-04-17] MEDS: LOSARTAN 50 MG TABLET PO SCH (08:37)
[2023-04-17] MEDS: inSUlin DETERMIR 1 UNIT/0.01 ML (CHARGE PER UNIT) SQ SCH (08:39)
[2023-04-17] MEDS: DOCUSATE SODIUM 100 MG CAPSULE PO SCH (08:45)
[2023-04-17] MEDS: SENNOSIDES 8.6 MG TABLET PO SCH (08:45)
[2023-04-17 11:05] VITALS: BP 125/82
--- NOTE | 2023-04-17 11:09 | Progress Note - Surgery ---
HEIDI ROMERO 04/17/23 1109: Subjective Date Seen by a Provider: Apr 17, 2023 Time Seen by a Provider: 11:04 Subjective/Events-last exam Pt denies vomiting but is having nausea controlled with Zofran. Pt says last night his shoulder was killing him and it is occasional now at 4/10. Pt says his left shoulder was also bothering him but he was able to pop it to resolve it, but he is unable to resolve his right shoulder pain. Pt says from chest to RLQ of abd is sore, rated 12/10 last night and 7-8/10 now. Pt denies numbness in either arm or jaw and no jaw pain. Pt says the chest pain has been occurring since before the surgery. Pt describes the chest pain as pressure and sharp. Pt says pain radiates from chest down to right part of his abdomen. Pt ambulated the halls this morning, and was just ambulating to the restroom last night. Pt states he had a loose BM in the last 24 hours with no blood. Pt states he had a solid food meal this morning of eggs, banana, and milk. Pt said he had some pain with the food going down if the bites were too big. Pt reports no other discomfort with eating. Incision sites are dry and healing well. Review of Systems General: Chills (last night), Night Sweats (last night) HEENT: Head Aches (last night); No Visual Changes Pulmonary: Dyspnea (pt says not often but trouble getting a good deep breath, hurts when coughing), Cough (twice this morning and had pain) Cardiovascular: Chest Pain (says it has been going on since before the s urgery), Palpitations Gastrointestinal: Nausea (managed with Zofran); No: Vomiting Genitourinary: No Dysuria, No Hematuria Neurological: Weakness (pt says whole body feels weak), Numbness (numbness in feet from diabetic neuropathy b/l) Objective Exam Vital Signs Date Time Temp Pulse Resp B/P (MAP) Pulse Ox O2 Delivery O2 Flow Rate FiO2 04/17/23 09:46 Room Air 0.00 04/17/23 09:39 Room Air 04/17/23 08:20 36.4 94 18 123/81 (95) 100 Room Air 04/17/23 07:00 93 04/17/23 04:59 36.5 95 18 118/73 (88) 99 Room Air 04/17/23 00:47 97 04/16/23 23:01 36.6 104 18 135/91 (106) 100 Room Air 04/16/23 19:49 36.8 98 16 114/81 (92) 97 Room Air 04/16/23 19:30 Room Air 04/16/23 19:00 95 04/16/23 16:48 36.6 107 16 136/76 (96) 98 Room Air 04/16/23 14:53 88 18 177/113 (134) 100 Room Air 04/16/23 14:15 36.4 85 16 192/117 (142) 100 Room Air 04/16/23 14:05 Room Air 04/16/23 14:00 36.2 12 189/98 (128) 99 Room Air 04/16/23 13:50 15 171/89 (116) 98 Room Air 04/16/23 13:45 Room Air 04/16/23 13:40 14 168/98 (121) 98 Room Air 04/16/23 13:30 OxyMask 10.00 04/16/23 13:30 17 172/104 (126) 100 OxyMask 10.00 04/16/23 13:20 12 113/74 (87) 99 OxyMask 10.00 04/16/23 13:16 OxyMask 10.00 04/16/23 13:16 36.2 18 113/68 (83) 99 OxyMask 10.00 I & O 04/17/23 07:00 Intake Total 3475 ml Balance 3475 ml Capillary Refill : Less Than 3 Seconds General Appearance: Mild Distress Neck: Non Tender Respiratory: Chest Non Tender (complains of chest pain but no tenderness), Lungs Clear, Normal Breath Sounds, No Accessory Muscle Use, No Respiratory Distress Cardiovascular: No JVD, No Murmur, Tachycardia (95 HR) Peripheral Pulses: 2+ Carotid (R), 2+ Carotid (L), 2+ Dorsalis Pedis (R), 2+ Left Dors-Pedis (L), 2+ Radial Pulses (R), 2+ Radial Pulses (L) Gastrointestinal: soft, no pulsatile mass, tenderness (pt complains upon palpation of all 4 quadrants to light palpation) Extremity: No Pedal Edema, Other (no numbness in either arm, no jaw numbness or pain) Neurologic/Psychiatric: Alert, Oriented x3 Skin: Normal Color, Warm/Dry, Other (incision sites dry and healing well) Results Lab Laboratory Tests 04/16/23 16:53: Glucometer 169H 04/17/23 03:02: White Blood Count 9.8, Red Blood Count 3.33L, Hemoglobin 10.2L, Hematocrit 29L, Mean Corpuscular Volume 87, Mean Corpuscular Hemoglobin 31, Mean Corpuscular Hemoglobin Concent 35, Red Cell Distribution Width 13.2, Platelet Count 229, Mean Platelet Volume 10.4, Immature Granulocyte % (Auto) 1, Neutrophils (%) (Auto) 75, Lymphocytes (%) (Auto) 15, Monocytes (%) (Auto) 9, Eosinophils (%) (Auto) 0, Basophils (%) (Auto) 0, Neutrophils # (Auto) 7.4, Lymphocytes # (Auto) 1.5, Monocytes # (Auto) 0.9, Eosinophils # (Auto) 0.0, Basophils # (Auto) 0.0, Immature Granulocyte # (Auto) 0.1, Sodium Level 135, Potassium Level 4.6, Chloride Level 107, Carbon Dioxide Level 19L, Anion Gap 9, Blood Urea Nitrogen 13, Creatinine 0.90, Estimat Glomerular Filtration Rate 111, BUN/Creatinine Ratio 14, Glucose Level 223H, Calcium Level 8.0L, Magnesium Level 2.0 Microbiology 04/15/23 MRSA Screen - Final, Complete MRSA not isolated 04/12/23 Blood Culture - Preliminary, Resulted 04/12/23 Urine Culture - Final, Complete See Comments Assessment/Plan Assessment/Plan Assessment/Plan S/P laparoscopic cholecystectomy with intraoperative cholangiography nausea - managed with Zofran chest and abdominal pain T1DM Continue ambulating, continue pain control, continue normal diet, avoid heavy lifting. TRENT LEON DO 04/17/23 1502: Subjective Time Seen by a Provider: 12:54 Subjective/Events-last exam Pt seen and examined, states he is feeling much better now than he was last night. His nausea is controlled with zofran. He is able to eat and would like to go home. Review of Systems General: Chills (last night), Night Sweats (last night) Pulmonary: Dyspnea (pt says not often but trouble getting a good deep breath, hurts when coughing), Cough (twice this morning and had pain) Cardiovascular: Chest Pain (says it has been going on since before the surgery), Palpitations Gastrointestinal: Nausea (managed with Zofran), Abdominal Pain; No: Vomiting Genitourinary: No Dysuria Neurological: Weakness (pt says whole body feels weak), Numbness (numbness in feet from diabetic neuropathy b/l) Objective Exam General Appearance: WD/WN, Mild Distress Respiratory: Lungs Clear, Normal Breath Sounds, No Accessory Muscle Use, No Respiratory Distress Cardiovascular: No Murmur, Tachycardia (95 HR) Gastrointestinal: soft, no organomegaly, tenderness (pt complains upon palpation of all 4 quadrants to light palpation), other (inc c/d/i) Neurologic/Psychiatric: Alert, Oriented x3 Assessment/Plan Assessment/Plan Assessment/Plan Nausea - improved and controlled with Zofran. Will make sure he goes home with it; it is much better after surgery than before surgery. S/P laparoscopic cholecystectomy with intraoperative cholangiography T1DM Encourage ambulation, IS use, I discussed with medicine it is ok for him to go home. Supervisory-Addendum Brief Verification & Attestation Participated in pt care: history, MDM, physical Personally performed: exam, history, MDM, supervision of care Care discussed with: Medical Student Procedures: n/a Verification and Attestation of Medical Student E/M Service A medical student performed and documented this service. I then reviewed and verified all information documented by the medical student and made modific ations to such information, when appropriate. I personally performed a physical exam, medical decision making and then discussed any differences between the notes and made revisions as necessary to create one note. Trent Leon , 04/17/23 , 15:04 HEIDI ROMERO Apr 17, 2023 11:09 TRENT LEON DO Apr 17, 2023 15:02
[2023-04-17] MEDS: ENOXAPARIN 40 MG/0.4 ML SYRINGE SC SCH (11:28)
[2023-04-17] MEDS ORDERED: LOSA50TA63 PO (14:15)
--- NOTE | 2023-04-17 19:39 | Discharge Summary ---
Discharge Summary Hospital Course Problems/Dx: (1) Intractable nausea and vomiting Status: Acute (2) Medication side effect Status: Acute (3) HTN (hypertension) Status: Acute (4) T2DM (type 2 diabetes mellitus) Status: Acute Qualifiers: (5) HLD (hyperlipidemia) Status: Chronic (6) GERD (gastroesophageal reflux disease) Status: Chronic Qualifiers: Qualified Codes: K21.9 - Gastro-esophageal reflux disease without esophagitis (7) Anxiety Status: Acute (8) Biliary dyskinesia Status: Acute Hospital Course Date of Admission: Apr 12, 2023 at 09:54 Admission Diagnosis : Intractable nausea and vomiting Family Physician/Provider: KimberlynLocal Physician Date of Discharge: 04/17/23 Discharge Diagnosis: Biliary dyskinesia, likely medication side effect of Ozempic, possible gastroparesis Hospital Course: Marcelino Chen is a 37 year old male with PMH insulin dependent diabetes who was admitted with intractable nausea and vomiting. This began after starting Ozempic the day prior. He had a CT scan which showed no acute abnormalities. His symptoms persisted despite symptomatic treatment. A gallbladder ultrasound was negative. He was thought to have possible gastroparesis. He continued to have intractable nausea and vomiting. A HIDA scan showed severely reduced ejection fraction consistent with biliary dyskinesia. Surgery performed laparoscopic cholecystectomy. His symptoms resolved. He was discharged home in stable condition. He should follow up with his PCP in about a week. Labs and Pending Lab Test: Laboratory Tests 04/17/23 03:02: White Blood Count 9.8, Red Blood Count 3.33L, Hemoglobin 10.2L, Hematocrit 29L, Mean Corpuscular Volume 87, Mean Corpuscular Hemoglobin 31, Mean Corpuscular Hemoglobin Concent 35, Red Cell Distribution Width 13.2, Platelet Count 229, Mean Platelet Volume 10.4, Immature Granulocyte % (Auto) 1, Neutrophils (%) (Auto) 75, Lymphocytes (%) (Auto) 15, Monocytes (%) (Auto) 9, Eosinophils (%) (Auto) 0, Basophils (%) (Auto) 0, Neutrophils # (Auto) 7.4, Lymphocytes # (Auto) 1.5, Monocytes # (Auto) 0.9, Eosinophils # (Auto) 0.0, Basophils # (Auto) 0.0, Immature Granulocyte # (Auto) 0.1, Sodium Level 135, Potassium Level 4.6, Chloride Level 107, Carbon Dioxide Level 19L, Anion Gap 9, Blood Urea Nitrogen 13, Creatinine 0.90, Estimat Glomerular Filtration Rate 111, BUN/Creatinine Ratio 14, Glucose Level 223H, Calcium Level 8.0L, Magnesium Level 2.0 Microbiology 04/15/23 MRSA Screen - Final, Complete MRSA not isolated 04/12/23 Blood Culture - Preliminary, Resulted 04/12/23 Urine Culture - Final, Complete See Comments Home Meds Active Losartan Potassium 50 Mg Tablet 100 Mg PO DAILY 30 Days Colace (Docusate Sodium) 100 Mg Capsule 100 Mg PO DAILY Hydrocodone-Acetamin 5-325 mg (Hydrocodone/Acetaminophen) 5 Mg-325 Mg Tablet 1 Each PO Q4H PRN Reported Cetirizine HCl 10 Mg Tablet 10 Mg PO HS Tresiba Flextouch U-100 (Insulin Degludec) 100 Unit/Ml (3 Ml) Insuln.pen 60 Units SC HS Atorvastatin Calcium 20 Mg Tablet 20 Mg PO HS Ondansetron HCl 4 Mg Tablet 4 Mg PO Q4H PRN Tadalafil 5 Mg Tablet 5-10 Mg PO UD PRN Pantoprazole Sodium 40 Mg Tablet.dr 40 Mg PO HS Baclofen 10 Mg Tablet 10-20 Mg PO BID PRN Assessment/Pt Instructions see instructions Discharge Planning: <30 minutes discharge planning Discharge Instructions Discharge Diet: Regular Diet Activity as Tolerated: No Consultations Surgery Discharge Physical Examination Vital Signs Vital Signs Date Time Temp Pulse Resp B/P (MAP) Pulse Ox O2 Delivery O2 Flow Rate FiO2 04/17/23 14:45 04/17/23 12:31 103 04/17/23 11:05 36.5 18 100 Room Air 04/17/23 09:46 0.00 General Appearance: No Apparent Distress, WD/WN Respiratory: Lungs Clear, No Respiratory Distress Cardiovascular: Regular Rate, Rhythm, No Murmur Gastrointestinal: Normal Bowel Sounds, Soft, Tenderness Extremity: Normal Inspection, No Pedal Edema Neurologic/Psychiatric: Alert, Normal Mood/Affect Allergies: Coded Allergies: No Known Drug Allergies (Unverified , 06/11/22) Discharge Summary Date of Admission Apr 12, 2023 at 09:54 Date of Discharge Apr 17, 2023 at 14:50 Discharge Date: Apr 17, 2023 Discharge Time: 14:50 Admission Diagnosis Intractable nausea and vomiting Consults/Procedures Consulations Surgery Procedures Laparoscopic cholecystectomy Discharge Diagnosis Biliary dyskinesia Intractable nausea and vomiting Medication side effect Possible gastroparesis Anxiety T2DM HTN HLD GERD (1) Biliary dyskinesia Status: Acute (2) Intractable nausea and vomiting Status: Acute (3) Medication side effect Status: Acute (4) HTN (hypertension) Status: Acute (5) T2DM (type 2 diabetes mellitus) Status: Acute Qualifiers: (6) HLD (hyperlipidemia) Status: Chronic (7) GERD (gastroesophageal reflux disease) Status: Chronic Qualifiers: Qualified Codes: K21.9 - Gastro-esophageal reflux disease without esophagitis (8) Anxiety Status: Acute ADRI JARVIS MD Apr 17, 2023 19:38
--- NOTE | 2023-04-18 20:18 | OPERATIVE REPORT ---
DATE OF SERVICE: 04/16/2023 PREOPERATIVE DIAGNOSES: Biliary dyskinesia, nausea and vomiting. POSTOPERATIVE DIAGNOSES: Biliary dyskinesia, nausea and vomiting. PROCEDURE: Laparoscopic cholecystectomy with intraoperative cholangiogram. SURGEON: Shaunna Tovar DO STUDIO ARTIST: Dr. Leon, assisted in retraction, dissection, and closure. ANESTHESIA: General. ESTIMATED BLOOD LOSS: Minimal. COMPLICATIONS: None. INDICATIONS: The patient is a 37-year-old male with nausea and vomiting. He had workup with ultrasound, which was normal and had a HIDA scan, which demonstrated ejection fraction of 10%. He understands risks and benefits of procedure and wished to proceed. Consent was signed in chart. DESCRIPTION OF PROCEDURE: The patient was taken to the operating suite, prepped and draped in sterile fashion. Timeout was performed. Local anesthetic was infiltrated above the umbilicus. An 11 blade scalpel was used to make a small skin incision. Cautery was used to dissect down to the fascia, which was then scored, elevated and the abdomen was then entered. An 0 Vicryl was placed in a [id number] fashion for closure at the end of the case. [place] trocar was inserted. Pneumoperitoneum was achieved. Under direct visualization of laparoscope, a 5 mm trocar was placed in the subxiphoid region and two 5 mm trocars were placed in the right upper quadrant. Multiple adhesions of the omentum up to the liver, which had to be taken down with both blunt and cautery dissection. Once this was taken down, the gallbladder was able to be visualized, grasped and elevated. The liver had fused across near the neck of the gallbladder, not allowing adequate visualization. It was further inspected and this liver with hook cautery was able to be wedged off resecting the small portion of liver. There were lots of inflammation and chronic changes around the neck of the gallbladder. The cystic duct was attempted to be dissected out, but due to the chronic changes, not able to be visualized very well. The cystic artery was able to be dissected out. The clips were placed on the proximal and distal portion of cystic artery. At this time, still having some difficulty visualization. Therefore, we dissected from the fundus down to the neck of the gallbladder from the gallbladder fossa, which was then able to better visualize the cystic duct. A hole in the gallbladder was present, which the Cook catheter was able to be inserted and cholangiogram was performed. There were no filling defects. Contrast made its way into the duodenum. Once this was dissected around free, it was then worked around the gallbladder and secured around the portion right at the junction of the gallbladder and the cystic duct. Scissors were used to resect the gallbladder. It was placed in an Endobag and removed through the 12 mm trocar site. Also, putting a piece of liver that was resected into it as well. Copious amounts of irrigation was used to irrigate and suction. Hemostasis was achieved. The abdomen was then desufflated. The trocars were removed. The 0 Vicryl placed at the beginning of the case was then tied, closing 12 mm fascial defect. The skin was then closed using 4-0 Monocryl in subcuticular fashion. The areas were washed and dried and skin Affix was placed over the incisions. The patient tolerated the procedure well without any complications, taken to recovery in stable condition. Job ID: [id number] DocumentID: [id number] Dictated Date: 04/18/2023 10:24:07 Internal Medicine Physician Assistant Date: 04/18/2023 20:16:00 Dictated By: SHAUNNA TOVAR DO
== END 2023-04-17 14:50 | disposition home or self-care (01) | DRG 406 ==
LOC: EDUNIT# 07:30 → ER 07:32 → 4TH 09:54 → INTOOBSV 04-14 16:21 → OBSVTOIN 04-14 16:21 → 4TH 04-15 13:08
PROVIDERS: ADMIT Internal Medicine; ATTEND Internal Medicine
PROC: 0FB04ZZ Excision of Liver, Percutaneous Endoscopic Approach (ICD-10-PCS; 2023-04-16)
PROC: BF101ZZ Fluoroscopy of Bile Ducts using Low Osmolar Contrast (ICD-10-PCS; 2023-04-16)
PROC: 0FT44ZZ Resection of Gallbladder, Percutaneous Endoscopic Approach (ICD-10-PCS; principal; 2023-04-16 10:55)
DX: K82.8 Other specified diseases of gallbladder (principal); E87.3 Alkalosis; N39.0 Urinary tract infection, site not specified; K66.0 Peritoneal adhesions (postprocedural) (postinfection); E86.0 Dehydration; E87.6 Hypokalemia; E11.65 Type 2 diabetes mellitus with hyperglycemia; E11.40 Type 2 diabetes mellitus with diabetic neuropathy, unspecified; E11.43 Type 2 diabetes mellitus with diabetic autonomic (poly)neuropathy; Z20.822 Contact with and (suspected) exposure to COVID-19; K31.84 Gastroparesis; E78.00 Pure hypercholesterolemia, unspecified; I10 Essential (primary) hypertension; K21.9 Gastro-esophageal reflux disease without esophagitis; F41.9 Anxiety disorder, unspecified; E11.21 Type 2 diabetes mellitus with diabetic nephropathy; H54.7 Unspecified visual loss; H91.90 Unspecified hearing loss, unspecified ear; Z79.4 Long term (current) use of insulin; Z79.1 Long term (current) use of non-steroidal anti-inflammatories (NSAID); Z79.899 Other long term (current) drug therapy; T38.3X5A Adverse effect of insulin and oral hypoglycemic [antidiabetic] drugs, initial encounter
CPT/HCPCS: 36415; 74160; 76000; 76705; 78227; 80048; 80053; 80076; 80306; 81000; 82010; 82805; 82947; 83605; 83690; 83735; 85025; 86618; 86666; 86668; 86757; 87040; 87081; 87088; 87636; 93005; 94664; 96361; 96366; 96372; 96375; 96376; G0378

== ENCOUNTER → 2023-05-20 | Outpatient (CLI) | payer BC ==
[~2023-05-20] MED LIST changes: +ACHD5005 PO; +ATOR20TA66 PO; +BUSP10TA95 PO; +CETI10TA17 PO; +DOCU-143 PO; +ESCI-2 PO; +INSU100I32 SC; +LOSA100T58 PO; +LOSA50TA63 PO; +METO5TAB75 PO; +ONDA-105 PO; +TADA5TAB4 PO
--- NOTE | 2023-05-20 15:28 | Diagnostic Imaging Report ---
INDICATION: 37-year-old male, abdominal pain The patient was administered a solid test meal with 1.1 mCi Tc 99M sulfur colloid used for labeling of the meal. Region of interest curves were drawn over the stomach with the percent of retained activity calculated at hourly timed intervals for a total of 4 hours. A time activity curve was generated. FINDINGS: Percent retention as follows: (percent of administered activity retained within the stomach): 1.0 hour: 78% {<30% = Rapid, >90% = Delayed} 2.0 hour: 70% {>60% = Abnormally Delayed} 3.0 hour: 70% {>30% = Abnormally Delayed} 4.0 hour: 61% {>10% = Abnormally Delayed} IMPRESSION: Abnormally delayed gastric emptying at all timed intervals. Dictated by: Dictated on workstation # [id number]
== END ==
LOC: CARD 08:26
PROVIDERS: ATTEND Surgery
DX: R11.0 Nausea (principal)
CPT/HCPCS: 78264; A9541

== ENCOUNTER 2023-05-23 08:45 | Emergency (ER) | payer BC ==
[~2023-05-23 08:45] MED LIST changes: -BUSP10TA95 PO; -ESCI-2 PO; -LOSA100T58 PO; -METO5TAB75 PO; -TADA5TAB4 PO
--- NOTE | 2023-05-23 09:10 | ED GI ---
General Chief Complaint: Abdominal/GI Problems Stated Complaint: VOMITING History of Present Illness Date Seen by Provider: May 23, 2023 Time Seen by Provider: 09:10 Initial Comments Patient presents with chronic episodic nausea and vomiting. Patient reports he has vomiting every morning till about noon. Patient was recently hospitalized and has gallbladder taken out by Dr. Suarez. Patient was seen by Dr. Suarez for further evaluation this morning. Patient is actively vomiting. Patient reports that the episodic vomiting was going on prior to being evaluated and his gallbladder being removed. Allergies and Home Medications Allergies Coded Allergies: semaglutide (Verified Allergy, Unknown, 05/23/23) Patient Home Medication List Home Medication List Reviewed: Yes Atorvastatin Calcium (Atorvastatin Calcium) 20 Mg Tablet, 20 MG PO HS, (Reported) Entered as Reported by: ABHIJIT VANESSA on 04/13/23 1232 Baclofen (Baclofen) 10 Mg Tablet, 10-20 MG PO BID PRN for MUSCLE CRAMPS, (Reported) Entered as Reported by: JACQUES JONES on 03/24/23 1522 Cetirizine HCl (Cetirizine HCl) 10 Mg Tablet, 10 MG PO HS, (Reported) Entered as Reported by: ABHIJIT VANESSA on 04/13/23 1232 Docusate Sodium (Colace) 100 Mg Capsule, 100 MG PO DAILY Prescribed by: SHAUNNA SUAREZ on 04/16/23 1339 Hydrocodone/Acetaminophen (Hydrocodone-Acetamin 5-325 mg) 5 Mg-325 Mg Tablet, 1 EACH PO Q4H PRN for PAIN-MODERATE (5-7) Prescribed by: SHAUNNA SUAREZ on 04/16/23 1340 Insulin Degludec (Tresiba Flextouch U-100) 100 Unit/Ml (3 Ml) Insuln.pen, 60 UNITS SC HS, (Reported) Entered as Reported by: ABHIJIT VANESSA on 04/13/23 1232 Losartan Potassium (Losartan Potassium) 50 Mg Tablet, 100 MG PO DAILY Prescribed by: ADRI JARVIS on 04/17/23 1415 Metoclopramide HCl (Reglan) 5 Mg Tablet, 5 MG PO TID Prescribed by: THAO MORROW on 05/23/23 1050 Ondansetron HCl (Ondansetron HCl) 4 Mg Tablet, 4 MG PO Q4H PRN for NAUSEA/VOMITING-1ST LINE, (Reported) Entered as Reported by: ABHIJIT VANESSA on 04/13/23 1232 Pantoprazole Sodium (Pantoprazole Sodium) 40 Mg Tablet.dr, 40 MG PO HS, (Reported) Entered as Reported by: JACQUES JONES on 03/24/23 1522 Tadalafil (Tadalafil) 5 Mg Tablet, 5-10 MG PO UD PRN for ED, (Reported) Entered as Reported by: JACQUES JONES on 03/24/23 1522 Review of Systems Review of Systems Constitutional: No chills, No fever Respiratory: No Symptoms Reported Cardiovascular: No Symptoms Reported Gastrointestinal: See HPI, Nausea, Vomiting Genitourinary: No Symptoms Reported Musculoskeletal: no symptoms reported Skin: no symptoms reported Psychiatric/Neurological: No Symptoms Reported Past Tzrfeka-Ynufrw-Kxrfbe Hx Immunizations Up To Date First/Initial COVID19 Vaccinat: 2020 Second COVID19 Vaccination Zach: 2020 Third COVID19 Vaccination Date: 2021 Seasonal Allergies Seasonal Allergies: Yes Past Medical History Surgery/Hospitalization HX: DM, vasectomy, procedure with suarez last week, all teeth removed,htn, metal piece in left foot, 4 metal rods in mouth Surgeries: Yes (ORAL) Ear Surgery, Orthopedic, Vasectomy Respiratory: No Cardiac: Yes High Cholesterol, Hypertension Neurological: No Genitourinary: No Gastrointestinal: Yes Gastroesophageal Reflux Musculoskeletal: Yes Chronic Back Pain Endocrine: Yes Diabetes, Insulin dep Cancer: No Psychosocial: Yes (MEDICAL ANXIETY) Integumentary: No Blood Disorders: No Family Medical History No Pertinent Family Hx Physical Exam Vital Signs Vital Signs - First Documented 05/23/23 09:10 Pulse 86 Resp 24 B/P (MAP) 180/111 (134) Pulse Ox 100 Capillary Refill : Height/Weight/BMI Height: '" Weight: lbs. oz. kg; 30.01 BMI Method: General Appearance: other (Actively vomiting) Respiratory: lungs clear, normal breath sounds Cardiovascular: normal peripheral pulses, regular rate, rhythm Neurologic/Psychiatric: alert, normal mood/affect, oriented x 3 Skin: normal color, warm/dry Progress/Results/Core Measures Results/Orders Lab Results Laboratory Tests Test 05/23/23 09:23 05/23/23 09:30 Range/Units Glucometer 345 H 70-110 MG/DL White Blood Count 11.0 4.3-11.0 10^3/uL Red Blood Count 4.87 4.30-5.52 10^6/uL Hemoglobin 14.4 13.3-17.7 g/dL Hematocrit 42 40-54 % Mean Corpuscular Volume 87 80-99 fL Mean Corpuscular Hemoglobin 30 25-34 pg Mean Corpuscular Hemoglobin Concent 34 32-36 g/dL Red Cell Distribution Width 13.6 10.0-14.5 % Platelet Count 192 130-400 10^3/uL Mean Platelet Volume 11.1 9.0-12.2 fL Immature Granulocyte % (Auto) 1 % Neutrophils (%) (Auto) 79 H 42-75 % Lymphocytes (%) (Auto) 11 L 12-44 % Monocytes (%) (Auto) 7 0-12 % Eosinophils (%) (Auto) 2 0-10 % Basophils (%) (Auto) 0 0-10 % Neutrophils # (Auto) 8.7 H 1.8-7.8 10^3/uL Lymphocytes # (Auto) 1.3 1.0-4.0 10^3/uL Monocytes # (Auto) 0.8 0.0-1.0 10^3/uL Eosinophils # (Auto) 0.2 0.0-0.3 10^3/uL Basophils # (Auto) 0.0 0.0-0.1 10^3/uL Immature Granulocyte # (Auto) 0.1 0.0-0.1 10^3/uL Sodium Level 139 135-145 MMOL/L Potassium Level 3.1 L 3.6-5.0 MMOL/L Chloride Level 102 98-107 MMOL/L Carbon Dioxide Level 20 L 21-32 MMOL/L Anion Gap 17 H 5-14 MMOL/L Blood Urea Nitrogen 9 7-18 MG/DL Creatinine 0.98 0.60-1.30 MG/DL Estimat Glomerular Filtration Rate 101 BUN/Creatinine Ratio 9 Glucose Level 357 H 70-105 MG/DL Calcium Level 10.0 8.5-10.1 MG/DL Corrected Calcium 8.5-10.1 MG/DL Magnesium Level 1.7 1.6-2.4 MG/DL Total Bilirubin 0.9 0.1-1.0 MG/DL Aspartate Amino Transf (AST/SGOT) 29 5-34 U/L Alanine Aminotransferase (ALT/SGPT) 51 0-55 U/L Alkaline Phosphatase 152 H 40-136 U/L Total Protein 7.7 6.4-8.2 GM/DL Albumin 4.6 H 3.2-4.5 GM/DL Lipase 27 8-78 U/L My Orders Orders - THAO MORROW DO Cbc And Automated Diff (05/23/23 09:13) Comprehensive Metabolic Panel (05/23/23 09:13) Lipase (05/23/23 09:13) Magnesium (05/23/23 09:13) Lactated Ringers 1,000 Ml (Lactated Ring (05/23/23 09:13) Diphenhydramine Injection (Diphenhydram (05/23/23 09:13) Haloperidol Injection (Haloperidol Injec (05/23/23 09:15) Accucheck Stat ONCE (05/23/23 09:18) Metoclopramide Injection (Metoclopramide (05/23/23 09:59) Medications Given in ED Current Medications Medications Dose Ordered Sig/Michele Route Start Time Stop Time Status Last Admin Dose Admin Haloperidol Lactate 2.5 mg ONCE ONCE IV 05/23/23 09:15 05/23/23 09:16 DC 05/23/23 09:28 2.5 MG Vital Signs/I&O 05/23/23 05/23/23 09:10 11:21 Pulse 86 86 Resp 24 24 B/P (MAP) 180/111 (134) 176/80 Pulse Ox 100 100 Progress Progress Note : Progress Note Patient's labs were reviewed and interpreted by me with no acute significant findings. I did review patient's gastric emptying study and it does show that he has delayed emptying consistent with gastroparesis. His gastroparesis is likely due to his diabetes versus suspected marijuana use. Patient's symptoms did improve with Haldol and Benadryl consistent with hyper cannabis/cyclic vomiting syndrome. I called and discussed with Dr. Suarez who wanted to have patient follow-up with him in 2 weeks. We will start him on Reglan for gastroparesis. I did discuss with patient the need to ensure that he does not use marijuana as that will exacerbate his symptoms. That he needs to be sure he has good diabetic control. He was prescribed Reglan 5 mg 3 times daily and should follow-up with Dr. Suarez in 2 weeks to see if he needs any adjustments depending on his symptoms at that time. Patient was stable and discharged home. Departure Impression Primary Impression: Gastroparesis Additional Impression: Cyclic vomiting syndrome Disposition: 01 HOME, SELF-CARE Condition: Stable Departure-Patient Inst. Referrals: JACQUES LEA (PCP/Family) Primary Care Physician Patient Instructions: Gastroparesis (Delayed Gastric Emptying) (DC), Nausea and Vomiting, Adult Add. Discharge Instructions: Please follow-up with Dr. Suarez in approximately 2 weeks for recheck of your symptoms. Please start the Reglan this afternoon. Please reframe from any exposure to marijuana as it will exacerbate your symptoms All discharge instructions reviewed with patient and/or family. Voiced understanding. Scripts Metoclopramide HCl (Reglan) 5 Mg Tablet 5 MG PO TID, #60 TAB 0 Refills Prov: THAO MORROW DO 05/23/23 THAO MORROW DO May 23, 2023 09:10
[2023-05-23] MEDS ORDERED: diphenhydrAMINE INJ 50 MG/ML VIAL IV STA (09:13)
[2023-05-23] MEDS ORDERED: LACTATED RINGERS 1,000 ML 1,000 ML IV STA (09:13)
[2023-05-23] MEDS ORDERED: HALOPERIDOL INJECTION 5 MG/ML VIAL IV ONE (09:15)
[2023-05-23 09:48] LABS: BASOPHILS % (AUTO) 0 % (0-10); EOSINOPHILS # (AUTO) 0.2 10^3/uL (0.0-0.3); EOSINOPHILS % (AUTO) 2 % (0-10); HEMATOCRIT 42 % (40-54); HEMOGLOBIN 14.4 g/dL (13.3-17.7); LYMPHOCYTES # (AUTO) 1.3 10^3/uL (1.0-4.0); LYMPHOCYTES % (AUTO) 11 % (12-44); MEAN CORPUSCULAR HEMOGLOBIN 30 pg (25-34); MEAN CORPUSCULAR HGB CONC 34 g/dL (32-36); MEAN CORPUSCULAR VOLUME 87 fL (80-99); MEAN PLATELET VOLUME 11.1 fL (9.0-12.2); MONOCYTES # (AUTO) 0.8 10^3/uL (0.0-1.0); MONOCYTES % (AUTO) 7 % (0-12); NEUTROPHILS # (AUTO) 8.7 10^3/uL (1.8-7.8); NEUTROPHILS % (AUTO) 79 % (42-75); PLATELET COUNT 192 10^3/uL (130-400)
[2023-05-23 09:52] LABS: ALBUMIN 4.6 GM/DL (3.2-4.5)
[2023-05-23 09:53] LABS: CHLORIDE 102 MMOL/L (98-107); POTASSIUM 3.1 MMOL/L (3.6-5.0); SODIUM 139 MMOL/L (135-145)
[2023-05-23 09:55] LABS: GLUCOSE 357 MG/DL (70-105); TOTAL PROTEIN 7.7 GM/DL (6.4-8.2)
[2023-05-23 09:56] LABS: CARBON DIOXIDE 20 MMOL/L (21-32)
[2023-05-23 09:57] LABS: BILIRUBIN,TOTAL 0.9 MG/DL (0.1-1.0)
[2023-05-23 09:58] LABS: ALKALINE PHOSPHATASE 152 U/L (40-136)
[2023-05-23 09:59] LABS: CREATININE SERUM 0.98 MG/DL (0.60-1.30); GFR ESTIMATED 101
[2023-05-23] MEDS ORDERED: METOCLOPRAMIDE INJ 10 MG/2 ML IVP STA (09:59)
[2023-05-23 10:00] LABS: BUN/CREATININE RATIO 9
[2023-05-23 10:01] LABS: ALANINE AMINOTRANSFERASE 51 U/L (0-55); MAGNESIUM 1.7 MG/DL (1.6-2.4)
[2023-05-23 10:02] LABS: LIPASE 27 U/L (8-78)
[2023-05-23] MEDS ORDERED: METO5TAB75 PO (10:50)
[2023-05-23 11:21] VITALS: BP 176/80
[2023-05-24] MEDS ORDERED: LOSA100T58 PO (12:43)
[2023-05-24] MEDS ORDERED: TADA5TAB4 PO (12:43)
[2023-05-24] MEDS ORDERED: ESCI-2 PO (12:43)
[2023-05-24] MEDS ORDERED: BUSP10TA95 PO (12:43)
== END 2023-05-23 11:21 | disposition home or self-care (01) ==
LOC: EDUNIT# 08:45 → ER 08:47
DX: E11.43 Type 2 diabetes mellitus with diabetic autonomic (poly)neuropathy (principal); K31.84 Gastroparesis; Z79.4 Long term (current) use of insulin
CPT/HCPCS: 36415; 80053; 82947; 83690; 83735; 85025; 96361; 96374; 96375

== ENCOUNTER 2023-05-23 23:21 | Inpatient (IN) | payer BC ==
[~2023-05-23] VITALS: Ht 188 cm; Wt 98.3 kg
[~2023-05-23 23:21] MED LIST changes: +METO5TAB75 PO
[2023-05-23] MEDS ORDERED: NS (IVPB) 50 ML 50 ML ONE (23:38)
--- NOTE | 2023-05-23 23:43 | ED GI ---
General Chief Complaint: Abdominal/GI Problems Stated Complaint: VOMITING Nursing Triage Note: PT AMB TO [facility] 7 WITH CC OF VOMITING. PT WAS SEEN THIS MORNING FOR SAME ISSUE. PT WAS IN CONTACT WITH DR SUAREZ AND WAS TOLD TO COME TO ER FOR ADMISSION. PT REPORTS VOMITING 30X IN 1 HOUR. Source of Information: Patient Exam Limitations: No Limitations History of Present Illness Date Seen by Provider: May 23, 2023 Time Seen by Provider: 23:31 Initial Comments 37-year-old male presents the emergency department for intractable nausea and vomiting. I actually spoke with Dr. Suarez earlier who is his general surgeon, took his gallbladder out several months ago for similar symptoms the patient states for about 2 weeks his symptoms improved however he had then recurrence of nausea and vomiting. He has since had an upper and lower endoscopy and a gastric emptying study. Per Dr. Suarez, the gastric emptying study was consistent with gastroparesis. He was started on Reglan in the clinic this morning by Dr. Suarez but states he has not been able to keep it down. He saw Dr. Kirk in the ER this morning and was given Haldol which she states helps temporarily but once it wore off he started vomiting once again. Emesis is nonbilious and nonbloody. He denies any fevers or chills. He has diffuse abdominal cramping without any focal pain. He has tried Zofran at home without any relief All other systems reviewed and negative except documented per HPI. Voice recognition software was used to help create this chart Allergies and Home Medications Allergies Coded Allergies: semaglutide (Verified Allergy, Unknown, 05/23/23) Patient Home Medication List Home Medication List Reviewed: Yes Atorvastatin Calcium (Atorvastatin Calcium) 20 Mg Tablet, 20 MG PO HS, (Reported) Entered as Reported by: ABHIJIT VANESSA on 04/13/23 1232 Baclofen (Baclofen) 10 Mg Tablet, 10-20 MG PO BID PRN for MUSCLE CRAMPS, (Reported) Entered as Reported by: JACQUES JONES on 03/24/23 1522 Cetirizine HCl (Cetirizine HCl) 10 Mg Tablet, 10 MG PO HS, (Reported) Entered as Reported by: ABHIJIT VANESSA on 04/13/23 1232 Docusate Sodium (Colace) 100 Mg Capsule, 100 MG PO DAILY Prescribed by: SHAUNNA SUAREZ on 04/16/23 1339 Hydrocodone/Acetaminophen (Hydrocodone-Acetamin 5-325 mg) 5 Mg-325 Mg Tablet, 1 EACH PO Q4H PRN for PAIN-MODERATE (5-7) Prescribed by: SHAUNNA SUAREZ on 04/16/23 1340 Insulin Degludec (Tresiba Flextouch U-100) 100 Unit/Ml (3 Ml) Insuln.pen, 60 UNITS SC HS, (Reported) Entered as Reported by: ABHIJIT VANESSA on 04/13/23 1232 Losartan Potassium (Losartan Potassium) 50 Mg Tablet, 100 MG PO DAILY Prescribed by: ADRI JARVIS on 04/17/23 1415 Metoclopramide HCl (Reglan) 5 Mg Tablet, 5 MG PO TID Prescribed by: THAO KIRK on 05/23/23 1050 Ondansetron HCl (Ondansetron HCl) 4 Mg Tablet, 4 MG PO Q4H PRN for NAUSEA/VOMITING-1ST LINE, (Reported) Entered as Reported by: ABHIJIT VANESSA on 04/13/23 1232 Pantoprazole Sodium (Pantoprazole Sodium) 40 Mg Tablet.dr, 40 MG PO HS, (Reported) Entered as Reported by: JACQUES JONES on 03/24/23 152 Tadalafil (Tadalafil) 5 Mg Tablet, 5-10 MG PO UD PRN for ED, (Reported) Entered as Reported by: JACQUES JONES on 03/24/23 1522 Review of Systems Review of Systems Constitutional: see HPI Past Txxcijz-Dsxpen-Uimeqx Hx Patient Social History Tobacco Use?: No Use of E-Cig and/or Vaping dev: No Substance use?: No Alcohol Use?: No Immunizations Up To Date First/Initial COVID19 Vaccinat: 2020 Second COVID19 Vaccination Zach: 2020 Third COVID19 Vaccination Date: 2021 Seasonal Allergies Seasonal Allergies: Yes Past Medical History Surgery/Hospitalization HX: DM, vasectomy, procedure with cyn last week, all teeth removed,htn, metal piece in left foot, 4 metal rods in mouth Surgeries: Yes (ORAL) Ear Surgery, Orthopedic, Vasectomy Respiratory: No Cardiac: Yes High Cholesterol, Hypertension Neurological: No Genitourinary: No Gastrointestinal: Yes Gastroesophageal Reflux Musculoskeletal: Yes Chronic Back Pain Endocrine: Yes Diabetes, Insulin dep Cancer: No Psychosocial: Yes (MEDICAL ANXIETY) Integumentary: No Blood Disorders: No Family Medical History No Pertinent Family Hx Physical Exam Vital Signs Vital Signs - First Documented 05/23/23 23:32 Temp 37.1 Pulse 103 B/P (MAP) 182/110 (134) Pulse Ox 99 O2 Delivery Room Air Capillary Refill : Height/Weight/BMI Height: '" Weight: lbs. oz. kg; 26.00 BMI Method: General Appearance: WD/WN, no apparent distress HEENT: normal ENT inspection, pharynx normal Neck: non-tender, full range of motion, supple, normal inspection Respiratory: chest non-tender, lungs clear, normal breath sounds, no respiratory distress, no accessory muscle use Cardiovascular: regular rate, rhythm, no murmur Gastrointestinal: normal bowel sounds, non tender, soft, no organomegaly Extremities: normal range of motion, non-tender, normal inspection, normal capillary refill Neurologic/Psychiatric: alert, normal mood/affect, oriented x 3 Skin: normal color, warm/dry Progress/Results/Core Measures Results/Orders My Orders Orders - JONAH WALLER DO Promethazine Injection (Promethazine I (05/23/23 23:45) Vital Signs/I&O 05/23/23 23:32 Temp 37.1 Pulse 103 B/P (MAP) 182/110 (134) Pulse Ox 99 O2 Delivery Room Air Blood Pressure Mean: 134 Departure Communication (Admissions) Patient is hemodynamically stable. He does not appear toxic. He is slightly tachycardic. He just had labs this morning at about 10:00 and had some mild hypokalemia 3.1. We will go ahead and give him LR and recheck his labs in the morning. I spoke with Dr. Macdonald who accepts the patient in admission for intractable nausea and vomiting. I have ordered him IV Benadryl and Phenergan. Impression Primary Impression: Intractable nausea and vomiting Disposition: ADMITTED INPATIENT Condition: Stable Admissions Decision to Admit Reason: Admit from ER (General) Departure-Patient Inst. Referrals: JACQUES LEA (PCP/Family) Primary Care Physician JONAH WALLER DO May 23, 2023 23:43
[2023-05-23] MEDS ORDERED: NS 50 ML (IVPB) BAG IV ONE (23:45)
[2023-05-23] MEDS ORDERED: PROMETHAZINE INJ 25 MG/ML VIAL IVP ONE (23:45)
[2023-05-24] VITALS (11 sets, daily range): BP systolic 120–198; BP diastolic 74–113
[2023-05-24] MEDS ORDERED: LACTATED RINGERS 1,000 ML 1,000 ML IV ONE (00:32)
[2023-05-24] MEDS ORDERED: ONDANSETRON INJECTION 4 MG/2 ML (SDV) IV PRN (02:00)
[2023-05-24] MEDS: LACTATED RINGERS 1,000 ML 1,000 ML IV SCH ×3 (02:00→17:57)
[2023-05-24] MEDS ORDERED: diphenhydrAMINE INJ 50 MG/ML VIAL IV PRN (02:00)
[2023-05-24] MEDS ORDERED: LACTULOSE SYRUP 10GM/15ML 30ML UDC PO PRN (05:15)
[2023-05-24] MEDS ORDERED: diphenhydrAMINE 25 MG TABLET PO PRN (05:15)
[2023-05-24] MEDS ORDERED: CALCIUM CARBONATE 500 MG CHEW TABLET PO PRN (05:15)
[2023-05-24] MEDS ORDERED: diphenhydrAMINE INJ 50 MG/ML VIAL IVP PRN (05:15)
[2023-05-24] MEDS ORDERED: MELATONIN 3 MG TABLET PO PRN (05:15)
[2023-05-24] MEDS ORDERED: HYDROmorphone INJECTION 2 MG/ML VIAL IV PRN (05:15)
[2023-05-24] MEDS ORDERED: BISACODYL 10 MG SUPPOSITORY PR PRN (05:15)
[2023-05-24] MEDS ORDERED: oxyCODONE IMMEDIATE RELEASE 5 MG TABLET PO PRN (05:15)
[2023-05-24] MEDS ORDERED: SCOPOLAMINE 1.5 MG PATCH TD ONE (05:15)
[2023-05-24] MEDS ORDERED: ONDANSETRON 4 MG ORAL DISSOLVE TABLET PO PRN (05:15)
[2023-05-24] MEDS ORDERED: ANTACID SUSPENSION 30 ML UDC PO PRN (05:15)
[2023-05-24] MEDS ORDERED: MILK OF MAGNESIA 400 MG/5 ML 30 ML UDC PO PRN (05:15)
[2023-05-24] MEDS: PROMETHAZINE INJ 25 MG/ML VIAL IVP PRN ×3 (05:17→19:41)
[2023-05-24 05:26] LABS: BASOPHILS % (AUTO) 0 % (0-10); EOSINOPHILS % (AUTO) 0 % (0-10); HEMATOCRIT 40 % (40-54); HEMOGLOBIN 13.7 g/dL (13.3-17.7); LYMPHOCYTES # (AUTO) 1.1 10^3/uL (1.0-4.0); LYMPHOCYTES % (AUTO) 14 % (12-44); MEAN CORPUSCULAR HEMOGLOBIN 30 pg (25-34); MEAN CORPUSCULAR HGB CONC 35 g/dL (32-36); MEAN CORPUSCULAR VOLUME 85 fL (80-99); MEAN PLATELET VOLUME 11.2 fL (9.0-12.2); MONOCYTES # (AUTO) 0.5 10^3/uL (0.0-1.0); MONOCYTES % (AUTO) 7 % (0-12); NEUTROPHILS # (AUTO) 6.1 10^3/uL (1.8-7.8); NEUTROPHILS % (AUTO) 79 % (42-75); PLATELET COUNT 198 10^3/uL (130-400); WHITE BLOOD COUNT 7.8 10^3/uL (4.3-11.0)
[2023-05-24 05:34] LABS: ALBUMIN 4.4 GM/DL (3.2-4.5); POTASSIUM 3.3 MMOL/L (3.6-5.0)
[2023-05-24 05:35] LABS: CALCIUM 9.6 MG/DL (8.5-10.1)
[2023-05-24 05:37] LABS: TOTAL PROTEIN 7.5 GM/DL (6.4-8.2)
[2023-05-24 05:38] LABS: BILIRUBIN,TOTAL 1.5 MG/DL (0.1-1.0)
[2023-05-24 05:42] LABS: BILIRUBIN,DIRECT 0.6 MG/DL (0.0-0.3); BILIRUBIN,INDIRECT 0.9 MG/DL
[2023-05-24] MEDS: METOCLOPRAMIDE INJ 10 MG/2 ML IVP SCH ×4 (05:44→23:27)
[2023-05-24] MEDS: ENOXAPARIN 40 MG/0.4 ML SYRINGE SC SCH (05:44)
[2023-05-24] MEDS: hydrALAZINE INJECTION 20 MG/ML VIAL IV PRN ×2 (06:15→19:41)
[2023-05-24] MEDS ORDERED: FLU QUADRIvalent (6 months+) 60 mcg/0.5 ml 2023-2024 (FLUARIX) IM ONE (06:45)
[2023-05-24] MEDS: NITROGLYCERIN 2% OINT 1 GM UNIT DOSE PACKET TOP PRN ×2 (07:23→21:35)
--- NOTE | 2023-05-24 07:40 | Consultation - Surgery ---
MARILEEIZABELLA 05/24/23 0740: History of Present Illness History of Present Illness Patient Consulted On(renetta/time) 05/24/23 07:32 Date Seen by Provider: May 24, 2023 Time Seen by Provider: 06:50 History of Present Illness This is a 37-year-old patient with a hx of T2DM who presented to the ED for intractable nausea & vomiting. Stated that this episode started around 6:30 am Tuesday morning and has been vomiting since then. Experiences chest pain & epigastric pain when vomiting & dry heaving. Nothing has helped, nothing makes it worse. Associated symptoms are SOB, sweating, and anxiety. Describes the pain at a 5-6/10 on visit, but says the pain has reached a 10/10 in the past. Patient stated that this all started back in the summer, and has been hospitalized 3x for it. Episodes happen at random and there is no preceding event associated with it. Always happens in the morning and can last into the afternoon. Reported no blood ever seen in any of the episodes. Denies headache, fever, chills. Was vomiting when in the room, had some chest pain and abdominal pain. Is currently on clears and has no pain when drinking, but cannot keep it down. Zofran & phenergan haven not been helping. States he does not use marijuana but drug screen was positive for cannabinoids. Gastric emptying study: 1hr 78%, 2hr 70%, 3hr 70%, 4hr 61% Allergies and Home Medications Allergies Coded Allergies: semaglutide (Verified Allergy, Unknown, 05/23/23) Patient Home Medication List Home Medication List Reviewed: Yes Atorvastatin Calcium (Atorvastatin Calcium) 20 Mg Tablet, 20 MG PO HS, (Reported) Entered as Reported by: ABHIJIT VANESSA on 04/13/23 1232 Last Action: Reviewed Baclofen (Baclofen) 10 Mg Tablet, 10-20 MG PO BID PRN for MUSCLE CRAMPS, (Reported) Entered as Reported by: JACQUES JONES on 03/24/23 152 Last Action: Reviewed Buspirone HCl (Buspirone HCl) 10 Mg Tablet, 10 MG PO TID PRN for ANXIETY, (Reported) Entered as Reported by: ABHIJIT VANESSA on 05/24/23 1243 Last Action: Reviewed Cetirizine HCl (Cetirizine HCl) 10 Mg Tablet, 10 MG PO HS, (Reported) Entered as Reported by: ABHIJIT VANESSA on 04/13/23 123 Last Action: Reviewed Escitalopram Oxalate (Escitalopram Oxalate) 10 Mg Tablet, 10 MG PO HS, (Reported) Entered as Reported by: ABHIJIT VANESSA on 05/24/23 124 Last Action: Reviewed Insulin Degludec (Tresiba Flextouch U-100) 100 Unit/Ml (3 Ml) Insuln.pen, 30 UNITS SC HS, (Reported) Entered as Reported by: ABHIJIT VANESAS on 04/13/23 123 Last Action: Reviewed Losartan Potassium (Losartan Potassium) 100 Mg Tablet, 100 MG PO HS, (Reported) Entered as Reported by: ABHIJIT VANESSA on 05/24/23 124 Last Action: Reviewed Metoclopramide HCl (Reglan) 5 Mg Tablet, 5 MG PO TID Prescribed by: THAO MORROW on 05/23/23 1050 Last Action: Reviewed Pantoprazole Sodium (Pantoprazole Sodium) 40 Mg Tablet.dr, 40 MG PO HS, (Reported) Entered as Reported by: JACQUES JONES on 03/24/23 152 Last Action: Reviewed Tadalafil (Tadalafil) 5 Mg Tablet, 5 MG PO HS PRN for ED, (Reported) Entered as Reported by: JACQUES JONES on 03/24/231521 Last Action: Reviewed Tadalafil (Tadalafil) 5 Mg Tablet, 5 MG PO HS, (Reported) Entered as Reported by: ABHIJIT VANESSA on 05/24/231242 Last Action: Reviewed Discontinued Medications Docusate Sodium (Colace) 100 Mg Capsule, 100 MG PO DAILY Discontinued Reason: No Longer Taking Prescribed by: SHAUNNA SUAREZ on 04/16/23 1339 Last Action: Discontinued Hydrocodone/Acetaminophen (Hydrocodone-Acetamin 5-325 mg) 5 Mg-325 Mg Tablet, 1 EACH PO Q4H PRN for PAIN-MODERATE (5-7) Discontinued Reason: No Longer Taking Prescribed by: SHAUNNA SUAREZ on 04/16/23 1340 Last Action: Discontinued Losartan Potassium (Losartan Potassium) 50 Mg Tablet, 100 MG PO DAILY Discontinued Reason: No Longer Taking Prescribed by: ADRI JARVIS on 04/17/23 1415 Last Action: Discontinued Ondansetron HCl (Ondansetron HCl) 4 Mg Tablet, 4 MG PO Q4H PRN for NAUSEA/VOMITING-1ST LINE, (Reported) Discontinued Reason: No Longer Taking Entered as Reported by: ABHIJIT VANESSA on 04/13/23 1232 Last Action: Discontinued Past [id number] Hx Patient Social History Smoking Status: Never a Smoker Alcohol Use?: Yes (Avoids drinking due to condition, had 2 drinks last night for the first time in months) Seasonal Allergies Seasonal Allergies: Yes Surgeries History of Surgeries: Yes (ORAL) Surgeries: Abdominal (Gallbladder & piece of liver removed together. ), Ear Surgery, Orthopedic, Vasectomy Respiratory History of Respiratory Disorde: No Cardiovascular History of Cardiac Disorders: Yes Cardiac Disorders: High Cholesterol, Hypertension Neurological History of Neurological Disord: No Genitourinary History of Genitourinary Disor: No Gastrointestinal History of Gastrointestinal Di: Yes Gastrointestinal Disorders: Gastroesophageal Reflux Musculoskeletal History of Musculoskeletal Dis: Yes Musculoskeletal Disorders: Chronic Back Pain Endocrine History of Endocrine Disorders: Yes Endocrine Disorders: Diabetes, Insulin dep Cancer History of Cancer: No Psychosocial History of Psychiatric Problem: Yes (MEDICAL ANXIETY) Integumentary History of Skin or Integumenta: No Blood Transfusions History of Blood Disorders: No Family Medical History Significant Family History: No Pertinent Family Hx, Diabetes (Mom, Dad, and brother T2DM) Review of Systems-General Constitutional: No chills; diaphoresis; No fever EENTM: No ear pain, No blurred vision Respiratory: No cough; short of breath Cardiovascular: chest pain; No edema Gastrointestinal: abdominal pain (Epigastric), nausea, vomiting Genitourinary: No dysuria, No frequency Musculoskeletal: No back pain, No joint pain Skin: No change in color, No dryness Psychiatric/Neurological: Anxiety; Denies Headache Physical Exam-General Problems Physical Exam Vital Signs Vital Signs - First Documented 05/23/23 05/24/23 05/24/23 23:32 00:40 05:26 Temp 37.1 Pulse 103 Resp 18 B/P (MAP) 182/110 (134) Pulse Ox 99 O2 Delivery Room Air FiO2 21 Capillary Refill : General Appearance: moderate distress Eyes: Bilateral Eye Normal Inspection, Bilateral Eye PERRL, Bilateral Eye EOMI HEENT: PERRL/EOMI, pharynx normal Neck: non-tender Respiratory: lungs clear, normal breath sounds, no respiratory distress, no accessory muscle use Cardiovascular: regular rate, rhythm, no murmur, tachycardia Peripheral Pulses: 1+ Dorsalis Pedis (R), 1+ Left Dors-Pedis (L); 2+ Radial Pulses (R), 2+ Radial Pulses (L) Gastrointestinal: soft, tenderness (Epigastric, Lower quadrants) Extremities: non-tender, no pedal edema Neurologic/Psychiatric: alert, normal mood/affect, oriented x 3 Skin: normal color, warm/dry Data Review Labs Laboratory Tests 05/24/23 05:09: White Blood Count 7.8, Red Blood Count 4.65, Hemoglobin 13.7, Hematocrit 40, Mean Corpuscular Volume 85, Mean Corpuscular Hemoglobin 30, Mean Corpuscular Hemoglobin Concent 35, Red Cell Distribution Width 13.9, Platelet Count 198, Mean Platelet Volume 11.2, Immature Granulocyte % (Auto) 0, Neutrophils (%) (Auto) 79H, Lymphocytes (%) (Auto) 14, Monocytes (%) (Auto) 7, Eosinophils (%) (Auto) 0, Basophils (%) (Auto) 0, Neutrophils # (Auto) 6.1, Lymphocytes # (Auto) 1.1, Monocytes # (Auto) 0.5, Eosinophils # (Auto) 0.0, Basophils # (Auto) 0.0, Immature Granulocyte # (Auto) 0.0, Sodium Level 138, Potassium Level 3.3L, Chloride Level 101, Carbon Dioxide Level 20L, Anion Gap 17H, Blood Urea Nitrogen 13, Creatinine 1.00, Estimat Glomerular Filtration Rate 98, BUN/Creatinine Ratio 13, Glucose Level 299H, Calcium Level 9.6, Total Bilirubin 1.5H, Direct Bilirubin 0.6H, Indirect Bilirubin 0.9, Aspartate Amino Transf (AST/SGOT) 18, Alanine Aminotransferase (ALT/SGPT) 41, Alkaline Phosphatase 134, Total Protein 7.5, Albumin 4.4 Assessment/Plan Assessment/Plan Assessment/Plan Gastroparesis Vs. Cyclic vomiting syndrome Vs. Cannabis hyperemesis syndrome Intractable nausea & vomiting T2DM HTN - on hydralazine & nitroglycerin Continue prokinetics Continue antiemetics Supportive care Monitor fluids & electrolytes SHAUNNA SUAREZ DO 05/24/231923: History of Present Illness History of Present Illness History of Present Illness 37 year old male with type 2 diabetes has been to ED 2 times in last 24 hrs for intractable nausea and vomiting. Has been having periodic episodes of nausea vmointing and epigastric pain. Has been having back to the summer months. Had his gallbladder out for dyskinesia which helped for short period of time, but then returned. Paitent pain 5/10 currently. Nothing seems to bring on or make better. Patient denies Marijuanna use. Blood sugars not controlled. Denies fever sweats chills shortness of breath or chest pain at this time. Allergies and Home Medications Allergies Coded Allergies: semaglutide (Verified Allergy, Unknown, 05/23/23) Patient Home Medication List Home Medication List Reviewed: Yes Atorvastatin Calcium (Atorvastatin Calcium) 20 Mg Tablet, 20 MG PO HS, (Reported) Entered as Reported by: ABHIJIT VANESSA on 04/13/23 123 Last Action: Reviewed Baclofen (Baclofen) 10 Mg Tablet, 10-20 MG PO BID PRN for MUSCLE CRAMPS, (Reported) Entered as Reported by: JACQUES JONES on 03/24/23 1522 Last Action: Reviewed Buspirone HCl (Buspirone HCl) 10 Mg Tablet, 10 MG PO TID PRN for ANXIETY, ( Reported) Entered as Reported by: ABHIJIT VANESSA on 05/24/23 124 Last Action: Reviewed Cetirizine HCl (Cetirizine HCl) 10 Mg Tablet, 10 MG PO HS, (Reported) Entered as Reported by: ABHIJIT VANESSA on 04/13/23 123 Last Action: Reviewed Escitalopram Oxalate (Escitalopram Oxalate) 10 Mg Tablet, 10 MG PO HS, (Rep orted) Entered as Reported by: ABHIJIT VANESSA on 05/24/23 124 Last Action: Reviewed Insulin Degludec (Tresiba Flextouch U-100) 100 Unit/Ml (3 Ml) Insuln.pen, 30 UNITS SC HS, (Reported) Entered as Reported by: ABHIJIT VANESSA on 04/13/23 123 Last Action: Reviewed Losartan Potassium (Losartan Potassium) 100 Mg Tablet, 100 MG PO HS, (Reported) Entered as Reported by: ABHIJIT VANESSA on 05/24/23 124 Last Action: Reviewed Metoclopramide HCl (Reglan) 5 Mg Tablet, 5 MG PO TID Prescribed by: THAO MORROW on 05/23/23 1050 Last Action: Reviewed Pantoprazole Sodium (Pantoprazole Sodium) 40 Mg Tablet.dr, 40 MG PO HS, (Repo rted) Entered as Reported by: JACQUES JONES on 03/24/23 152 Last Action: Reviewed Tadalafil (Tadalafil) 5 Mg Tablet, 5 MG PO HS PRN for ED, (Reported) Entered as Reported by: JACQUES JONES on 03/24/23 152 Last Action: Reviewed Tadalafil (Tadalafil) 5 Mg Tablet, 5 MG PO HS, (Reported) Entered as Reported by: ABHIJIT VANESSA on 05/24/23 1243 Last Action: Reviewed Discontinued Medications Docusate Sodium (Colace) 100 Mg Capsule, 100 MG PO DAILY Discontinued Reason: No Longer Taking Prescribed by: SHAUNNA SUAREZ on 04/16/23 1339 Last Action: Discontinued Hydrocodone/Acetaminophen (Hydrocodone-Acetamin 5-325 mg) 5 Mg-325 Mg Tablet, 1 EACH PO Q4H PRN for PAIN-MODERATE (5-7) Discontinued Reason: No Longer Taking Prescribed by: SHAUNNA SUAREZ on 04/16/23 1340 Last Action: Discontinued Losartan Potassium (Losartan Potassium) 50 Mg Tablet, 100 MG PO DAILY Discontinued Reason: No Longer Taking Prescribed by: ADRI JARVIS on 04/17/23 1415 Last Action: Discontinued Ondansetron HCl (Ondansetron HCl) 4 Mg Tablet, 4 MG PO Q4H PRN for NAUSEA/VOMITING-1ST LINE, (Reported) Discontinued Reason: No Longer Taking Entered as Reported by: ABHIJIT VANESSA on 04/13/23 1232 Last Action: Discontinued Review of Systems-General Constitutional: diaphoresis; No fever EENTM: No ear pain, No blurred vision Respiratory: No cough; short of breath Cardiovascular: chest pain Gastrointestinal: abdominal pain (Epigastric), nausea, vomiting Genitourinary: No decreased output, No discharge, No frequency Musculoskeletal: No back pain, No joint pain Skin: No change in color, No dryness Psychiatric/Neurological: Anxiety; Denies Headache All Other Systems Reviewed Negative Unless Noted: Yes (Negative excepted noted.) Physical Exam-General Problems Physical Exam General Appearance: WD/WN, no apparent distress HEENT: PERRL/EOMI, normal ENT inspection Neck: non-tender, supple Respiratory: chest non-tender, no respiratory distress, no accessory muscle use Cardiovascular: tachycardia Gastrointestinal: soft, tenderness (Epigastric) Rectal: deferred Back: normal inspection, no CVA tenderness Extremities: non-tender, no pedal edema Neurologic/Psychiatric: alert, oriented x 3 Skin: normal color, warm/dry Lymphatic: no adenopathy Assessment/Plan Assessment/Plan Assessment/Plan Gastroparesis Possible Cyclic vomiting syndrome Epigastric abdominal pain Intractable nausea & vomiting T2DM HTN - on hydralazine & nitroglycerin Positive Drug screen-Marijuana Reglan Clear liquids Continue antiemetics Supportive care Monitor fluids & electrolytes Denies Marijuana but had positive on drug screen. Discussed portion of his symptoms could be caused by use, and if is using needs complete cessation. Tight glucose control dietary consult for dm education Gave information on gastroparesis and cyclic vomiting syndrome. Supervisory-Addendum Brief Verification & Attestation Participated in pt care: history, MDM, physical Personally performed: exam, history, MDM, supervision of care Care discussed with: Medical Student Procedures: n/a Results interpretation: Verified all documentation Verification and Attestation of Medical Student E/M Service A medical student performed and documented this service in my presence. I reviewed and verified all information documented by the medical student and made modifications to such information, when appropriate. I personally performed the physical exam and medical decision making. Shaunna Suarez, May 24, 2023,19:29 IZABELLA HUNT May 24, 2023 07:40 SHAUNNA SUAREZ DO May 24, 2023 19:24
[2023-05-24] MEDS: DOCUSATE SODIUM 100 MG CAPSULE PO SCH ×2 (08:01→19:44)
[2023-05-24] MEDS: SENNOSIDES 8.6 MG TABLET PO SCH ×2 (08:01→19:44)
--- NOTE | 2023-05-24 09:45 | History & Physical ---
ZAHEER OBANDO 05/24/23 0945: History of Present Illness History of Present Illness Reason for visit/HPI CC: nausea and vomiting HPI: Marcelino Chen is a 37 y/o male with PMH of DM type 2, and rubi roparesis presenting for nausea and vomiting for the past few days. He reports vomiting about every 30 seconds to a minute. He states that the emesis is primarily watery at this point, denying any blood or bile within emesis. He presented to the ER yesterday morning due to the large amount of emesis. He had a cholecystectomy on April 16, 2023 for intractable vomiting and his reports that the surgery improved his N/V for about two weeks, but symptoms slowly returned. The patient denies any alcohol use until about three days ago, where he had a couple beers. Since then, he has noticed an increase in emesis, ultimately leading to his ED visit. He also reports an allergic reaction to semaglutide which he thinks may exacerbate his vomiting episodes. He reports 5/10 pain currently and nothing improves or makes the pain/vomiting less frequent in the past, but last night he believes the phenegran helped. He reports SOB and diaphoresis as associated symptoms. He had a gastric emptying study which showed gastroparesis. He also states that he begins to hyperventilate during his vomiting episodes and would like something to help keep him calm during these episodes. His states his average blood sugar is 180-240. Date of Admission May 23, 2023 at 23:54 Date Seen by a Provider: May 24, 2023 I consulted on this patient on 05/24/23 09:28 Attending Physician Jacques Banuelos Admitting Physician Admitting Physician: Sarah Warner DO Attending Physician: Sarah Warner DO Consult Allergies and Home Medications Allergies Coded Allergies: semaglutide (Verified Allergy, Unknown, 05/23/23) Patient Home Medication List Home Medication List Reviewed: Yes Atorvastatin Calcium (Atorvastatin Calcium) 20 Mg Tablet, 20 MG PO HS, (Reported) Entered as Reported by: ABHIJIT VANESSA on 04/13/23 1232 Last Action: Reviewed Baclofen (Baclofen) 10 Mg Tablet, 10-20 MG PO BID PRN for MUSCLE CRAMPS, (Reported) Entered as Reported by: JACQUES JONES on 03/24/23 1522 Last Action: Reviewed Buspirone HCl (Buspirone HCl) 10 Mg Tablet, 10 MG PO TID PRN for ANXIETY, (Reported) Entered as Reported by: ABHIJIT VANESSA on 05/24/231242 Last Action: Reviewed Cetirizine HCl (Cetirizine HCl) 10 Mg Tablet, 10 MG PO HS, (Reported) Entered as Reported by: ABHIJIT VANESSA on 04/13/23 123 Last Action: Reviewed Escitalopram Oxalate (Escitalopram Oxalate) 10 Mg Tablet, 10 MG PO HS, (Reported) Entered as Reported by: ABHIJIT VANESSA on 05/24/231242 Last Action: Reviewed Insulin Degludec (Tresiba Flextouch U-100) 100 Unit/Ml (3 Ml) Insuln.pen, 30 UNITS SC HS, (Reported) Entered as Reported by: ABHIJIT VANESSA on 04/13/231231 Last Action: Reviewed Losartan Potassium (Losartan Potassium) 100 Mg Tablet, 100 MG PO HS, (Reported) Entered as Reported by: ABHIJIT VANESSA on 05/24/231242 Last Action: Reviewed Metoclopramide HCl (Reglan) 5 Mg Tablet, 5 MG PO TID Prescribed by: THAO MORROW on 05/23/23 1050 Last Action: Reviewed Pantoprazole Sodium (Pantoprazole Sodium) 40 Mg Tablet.dr, 40 MG PO HS, (Reported) Entered as Reported by: JACQUES JONES on 03/24/231521 Last Action: Reviewed Tadalafil (Tadalafil) 5 Mg Tablet, 5 MG PO HS PRN for ED, (Reported) Entered as Reported by: JACQUES JONES on 03/24/231521 Last Action: Reviewed Tadalafil (Tadalafil) 5 Mg Tablet, 5 MG PO HS, (Reported) Entered as Reported by: ABHIJIT VANESSA on 05/24/231242 Last Action: Reviewed Discontinued Medications Docusate Sodium (Colace) 100 Mg Capsule, 100 MG PO DAILY Discontinued Reason: No Longer Taking Prescribed by: SHAUNNA SUAREZ on 04/16/23 6288 Last Action: Discontinued Hydrocodone/Acetaminophen (Hydrocodone-Acetamin 5-325 mg) 5 Mg-325 Mg Tablet, 1 EACH PO Q4H PRN for PAIN-MODERATE (5-7) Discontinued Reason: No Longer Taking Prescribed by: SHAUNNA SUAREZ on 04/16/23 1340 Last Action: Discontinued Losartan Potassium (Losartan Potassium) 50 Mg Tablet, 100 MG PO DAILY Discontinued Reason: No Longer Taking Prescribed by: ADRI JARVIS on 04/17/23 1415 Last Action: Discontinued Ondansetron HCl (Ondansetron HCl) 4 Mg Tablet, 4 MG PO Q4H PRN for NAUSEA/VOMITING-1ST LINE, (Reported) Discontinued Reason: No Longer Taking Entered as Reported by: ABHIJIT VANESSA on 04/13/23 1232 Last Action: Discontinued Past Zcfinjb-Wrlqzj-Ohqory Hx Patient Social History Tobacco Use?: No Smoking Status: Never a Smoker Use of E-Cig and/or Vaping dev: No Substance use?: No Alcohol Use?: Yes (Avoids drinking due to condition, had 2 drinks last night for the first time in months) Alcohol type: Beer Alcohol Frequency: Rarely Pt feels they are or have been: No Immunizations Up To Date First/Initial COVID19 Vaccinat: 2020 Second COVID19 Vaccination Zach: 2020 Seasonal Allergies Seasonal Allergies: Yes Current Status Advance Directives: No Communicates: Verbally Primary Language: [place] Preferred Spoken Language: [place] Is interpretation needed?: No Sensory deficits: Vision impairment Implanted or Applied Medical D: None Past Medical History Surgeries: Abdominal (Gallbladder & piece of liver removed together. ), Ear Surgery, Orthopedic, Vasectomy High Cholesterol, Hypertension Gastroesophageal Reflux Chronic Back Pain Diabetes, Insulin dep Blood Disorders: No Family Medical History No Pertinent Family Hx, Diabetes (Mom, Dad, and brother T2DM) Review of Systems Constitutional: No chills; diaphoresis; No fever EENTM: No eye pain Respiratory: short of breath Cardiovascular: No edema Gastrointestinal: abdominal pain, nausea, vomiting Genitourinary: No dysuria Skin: no symptoms reported Psychiatric/Neurological: No Symptoms Reported Physical Exam Vital Signs Vital Signs - First Documented 05/23/23 05/24/23 05/24/23 23:32 00:40 05:26 Temp 37.1 Pulse 103 Resp 18 B/P (MAP) 182/110 (134) Pulse Ox 99 O2 Delivery Room Air FiO2 21 Capillary Refill : Height, Weight, BMI Height: '" Weight: lbs. oz. kg; 27.81 BMI Method: General Appearance: No Apparent Distress HEENT: PERRL/EOMI Neck: Full Range of Motion, Non Tender Respiratory: Normal Breath Sounds, No Respiratory Distress Cardiovascular: Regular Rate, Rhythm, No Edema Gastrointestinal: Normal Bowel Sounds Extremity: Normal Capillary Refill, Normal Range of Motion Neurologic/Psychiatric: Alert, Oriented x3, organ assembler II-XII Norm as Tested Assessment/Plan Assessment and Plan Assessment: Mr. Chen is a 37 y/o male presenting for a 1 day history of intractable nausea/vomiting. Plan: Nausea/Vomiting - continue prokinetics -continue anti-emetics -supportive care as needed -monitor vitals and fluid I&O -reconcile medication list for emesis triggers Anxiety d/t Emesis -lorazepam to reduce anxiety SARAH WARNER DO 05/25/23 0445: History of Present Illness History of Present Illness Reason for visit/HPI CC: Refractory N/V HPI: This is a 37-year-old male with a past medical history of severe xju-jw-edhkhsi diabetes managed on insulin who is a new patient to [facility] Banuelos whom I spoke to about his management due to refractory nausea and vomiting from severe gastroparesis. He has been placed on IV fluids and antiemetics. Dr. Suarez consulted. Gastroparesis seem to worsen after Ozempic and has continued even following a cholecystectomy that was uncomplicated. Time Seen by a Provider: 10:00 Allergies and Home Medications Allergies Coded Allergies: semaglutide (Verified Allergy, Unknown, 05/23/23) Patient Home Medication List Atorvastatin Calcium (Atorvastatin Calcium) 20 Mg Tablet, 20 MG PO HS, (Reported) Entered as Reported by: ABHIJIT VANESSA on 04/13/23 1232 Last Action: Reviewed Baclofen (Baclofen) 10 Mg Tablet, 10-20 MG PO BID PRN for MUSCLE CRAMPS, (Reported) Entered as Reported by: JACQUES JONES on 03/24/23 1522 Last Action: Reviewed Buspirone HCl (Buspirone HCl) 10 Mg Tablet, 10 MG PO TID PRN for ANXIETY, (Reported) Entered as Reported by: ABHIJIT VANESSA on 05/24/23 1243 Last Action: Reviewed Cetirizine HCl (Cetirizine HCl) 10 Mg Tablet, 10 MG PO HS, (Reported) Entered as Reported by: ABHIJIT VANESSA on 04/13/23 1232 Last Action: Reviewed Escitalopram Oxalate (Escitalopram Oxalate) 10 Mg Tablet, 10 MG PO HS, (Reported) Entered as Reported by: ABHIJIT VANESSA on 05/24/23 1243 Last Action: Reviewed Insulin Degludec (Tresiba Flextouch U-100) 100 Unit/Ml (3 Ml) Insuln.pen, 30 U NITS SC HS, (Reported) Entered as Reported by: ABHIJIT VANESSA on 04/13/23 1232 Last Action: Reviewed Losartan Potassium (Losartan Potassium) 100 Mg Tablet, 100 MG PO HS, (Reported) Entered as Reported by: ABHIJIT VANESSA on 05/24/23 124 Last Action: Reviewed Metoclopramide HCl (Reglan) 5 Mg Tablet, 5 MG PO TID Prescribed by: THAO MORROW on 05/23/23 1050 Last Action: Reviewed Pantoprazole Sodium (Pantoprazole Sodium) 40 Mg Tablet.dr, 40 MG PO HS, (Reported) Entered as Reported by: JACQUES JONES on 03/24/23 1522 Last Action: Reviewed Tadalafil (Tadalafil) 5 Mg Tablet, 5 MG PO HS PRN for ED, (Reported) Entered as Reported by: JACQUES JONES on 03/24/23 1522 Last Action: Reviewed Tadalafil (Tadalafil) 5 Mg Tablet, 5 MG PO HS, (Reported) Entered as Reported by: ABHIJIT VANESSA on 05/24/23 124 Last Action: Reviewed Discontinued Medications Docusate Sodium (Colace) 100 Mg Capsule, 100 MG PO DAILY Discontinued Reason: No Longer Taking Prescribed by: SHAUNNA SUAREZ on 04/16/23 1339 Last Action: Discontinued Hydrocodone/Acetaminophen (Hydrocodone-Acetamin 5-325 mg) 5 Mg-325 Mg Tablet, 1 EACH PO Q4H PRN for PAIN-MODERATE (5-7) Discontinued Reason: No Longer Taking Prescribed by: SHAUNNA SUAREZ on 04/16/23 1340 Last Action: Discontinued Losartan Potassium (Losartan Potassium) 50 Mg Tablet, 100 MG PO DAILY Discontinued Reason: No Longer Taking Prescribed by: ADRI JARVIS on 04/17/23 1415 Last Action: Discontinued Ondansetron HCl (Ondansetron HCl) 4 Mg Tablet, 4 MG PO Q4H PRN for NAUSEA/VOMITING-1ST LINE, (Reported) Discontinued Reason: No Longer Taking Entered as Reported by: ABHIJIT VANESSA on 04/13/23 1232 Last Action: Discontinued Past Mvzmgjc-Qxepxc-Theysb Hx Patient Social History Marrital Status: Employed/Student: employed Smoking Status: Current Everyday Smoker Past Medical History Diabetes, Insulin dep Review of Systems Constitutional: see HPI Physical Exam General Appearance: Anxious, Chronically ill, Mild Distress Respiratory: Lungs Clear, Normal Breath Sounds Cardiovascular: Regular Rate, Rhythm Neurologic/Psychiatric: Alert, Oriented x3 Assessment/Plan Assessment and Plan Assessment: Refractory nausea and vomiting Severe gastroparesis Recent cholecystectomy Severe side effect from Ozempic March 2023 Plan: Insulin management IV fluids Antiemetics Admission Diagnosis Admission Status: Observation Supervisory-Addendum Brief Verification & Attestation Participated in pt care: history, MDM, physical Personally performed: exam, history, MDM, supervision of care Care discussed with: Medical Student Procedures: n/a Results interpretation: Verified all documentation Verification and Attestation of Medical Student E/M Service A medical student performed and documented this service in my presence. I reviewed and verified all information documented by the medical student and made modifications to such information, when appropriate. I personally performed the physical exam and medical decision making. Sarah Warner, May 25, 2023,04:45 ZAHEER OBANDO May 24, 2023 09:45 SARAH WARNER DO May 25, 2023 04:45
[2023-05-24] MEDS: ACETAMINOPHEN 325 MG TABLET PO PRN (11:54)
[2023-05-24 12:30] LABS: AMPHETAMINE SCREEN, URINE NEGATIVE (NEGATIVE); BARBITURATE SCREEN URINE NEGATIVE (NEGATIVE); CANNABINOID SCREEN, URINE POSITIVE (NEGATIVE); COCAINE SCREEN URINE NEGATIVE (NEGATIVE); METHADONE STAT NEGATIVE (NEGATIVE); OPIATE SCREEN URINE NEGATIVE (NEGATIVE); OXYCODONE STAT NEGATIVE (NEGATIVE); PROPOXYPHENE STAT NEGATIVE (NEGATIVE); TRICYCLIC ANTIDEPRESSANTS SCRE NEGATIVE (NEGATIVE)
[2023-05-24] MEDS ORDERED: TADA5TAB4 PO (12:43)
[2023-05-24] MEDS ORDERED: ESCI-2 PO (12:43)
[2023-05-24] MEDS ORDERED: BUSP10TA95 PO (12:43)
[2023-05-24] MEDS ORDERED: LOSA100T58 PO (12:43)
[2023-05-24] MEDS: ONDANSETRON INJECTION 4 MG/2 ML (SDV) IV PRN ×2 (17:03→23:27)
[2023-05-25] MEDS: ACETAMINOPHEN 325 MG TABLET PO PRN ×2 (00:45→18:16)
[2023-05-25] MEDS: hydrALAZINE INJECTION 20 MG/ML VIAL IV PRN ×5 (00:45→23:36)
[2023-05-25] MEDS: LACTATED RINGERS 1,000 ML 1,000 ML IV SCH ×3 (02:40→20:02)
[2023-05-25] MEDS: PROMETHAZINE INJ 25 MG/ML VIAL IVP PRN ×3 (03:50→20:12)
[2023-05-25 03:54] VITALS: BP 150/85
[2023-05-25 05:11] LABS: BASOPHILS % (AUTO) 0 % (0-10); EOSINOPHILS % (AUTO) 0 % (0-10); HEMATOCRIT 37 % (40-54); HEMOGLOBIN 12.6 g/dL (13.3-17.7); LYMPHOCYTES # (AUTO) 0.8 10^3/uL (1.0-4.0); LYMPHOCYTES % (AUTO) 8 % (12-44); MEAN CORPUSCULAR HEMOGLOBIN 30 pg (25-34); MEAN CORPUSCULAR HGB CONC 34 g/dL (32-36); MEAN CORPUSCULAR VOLUME 87 fL (80-99); MONOCYTES # (AUTO) 0.8 10^3/uL (0.0-1.0); MONOCYTES % (AUTO) 8 % (0-12); NEUTROPHILS # (AUTO) 7.7 10^3/uL (1.8-7.8); NEUTROPHILS % (AUTO) 83 % (42-75); PLATELET COUNT 193 10^3/uL (130-400); WHITE BLOOD COUNT 9.3 10^3/uL (4.3-11.0)
[2023-05-25] MEDS: ENOXAPARIN 40 MG/0.4 ML SYRINGE SC SCH (05:39)
[2023-05-25] MEDS: METOCLOPRAMIDE INJ 10 MG/2 ML IVP SCH ×4 (05:39→23:36)
[2023-05-25 05:42] LABS: ALBUMIN 4.1 GM/DL (3.2-4.5); BILIRUBIN,TOTAL 1.4 MG/DL (0.1-1.0); CREATININE SERUM 0.89 MG/DL (0.60-1.30); TOTAL PROTEIN 6.6 GM/DL (6.4-8.2)
[2023-05-25 05:58] LABS: BAND NEUTROPHILS 1 %; NEUTROPHILS % (MANUAL) 75 %
[2023-05-25 05:59] LABS: LYMPHOCYTES % (MANUAL) 16 %; METAMYELOCYTES % 1 %; MONOCYTES % (MANUAL) 7 %; RBC MORPH NORMAL
--- NOTE | 2023-05-25 06:24 | Progress Note - Surgery ---
IZABELLA HUNT 05/25/23 0624: Subjective Date Seen by a Provider: May 25, 2023 Time Seen by a Provider: 06:05 Subjective/Events-last exam Patient is still having pain, vomiting, and nausea since last visit. He was able to get some sleep last night, but has been vomiting around 3-4 times per hour. I s able to drink water without any pain or issue, but eventually throws it up. The nurse reported that he drinks way too much water whenever she gives him some. Only other complaint was a 'splitting headache' that is located across his forehead, which he believes is due to not eating for 3 days. He has been getting some pain meds, which have helped a bit. The antiemetics have not been helping with the vomiting, but the vomiting has improved when compared to yesterday in terms of frequency. Denies fever, chills, visual changes, eye pain. Having a little bit of chest pain. Review of Systems General: No Chills, No Night Sweats HEENT: Head Aches; No Visual Changes, No Eye Pain Pulmonary: No Dyspnea, No Cough Cardiovascular: Chest Pain; No: Edema Gastrointestinal: Nausea, Vomiting, Abdominal Pain Genitourinary: No Dysuria, No Frequency Musculoskeletal: neck pain; No: shoulder pain Neurological: No: Change in speech, Confusion Objective Exam Vital Signs Date Time Temp Pulse Resp B/P (MAP) Pulse Ox O2 Delivery O2 Flow Rate FiO2 05/25/23 03:54 37.1 110 20 150/85 (106) 98 Room Air 05/24/23 23:30 37.3 101 18 188/109 (135) 98 Room Air 05/24/23 21:42 112 198/107 (137) 05/24/23 20:00 Room Air 05/24/23 19:25 37.4 105 18 180/106 (130) 100 Room Air 05/24/23 15:59 37.3 104 18 128/77 (94) 98 Room Air 05/24/23 11:18 37.1 106 18 130/84 (99) 98 Room Air 05/24/23 09:18 Room Air 05/24/23 08:06 37.4 113 20 186/104 (131) 100 Room Air 05/24/23 06:44 192/98 (129) I & O 05/25/23 07:00 Intake Total 5550 ml Output Total 1900 ml Balance 3650 ml Capillary Refill : General Appearance: Anxious, Chronically ill, Mild Distress HEENT: PERRL/EOMI, Pharynx Normal, Other (Dry mucous membranes) Neck: Full Range of Motion, Non Tender Respiratory: Lungs Clear, Normal Breath Sounds, No Accessory Muscle Use, No Respiratory Distress Cardiovascular: Regular Rate, Rhythm, No Murmur, Tachycardia Peripheral Pulses: 1+ Dorsalis Pedis (R), 1+ Left Dors-Pedis (L); 2+ Radial Pulses (R), 2+ Radial Pulses (L) Gastrointestinal: soft, tenderness (Epigastric, lower quadrants) Extremity: Normal Capillary Refill, Normal Range of Motion Neurologic/Psychiatric: Alert, Oriented x3, Normal Mood/Affect Skin: Normal Color, Warm/Dry Results Lab Laboratory Tests 05/24/23 11:58: Urine Opiates Screen NEGATIVE, Urine Oxycodone Screen NEGATIVE, Urine Methadone Screen NEGATIVE, Urine Propoxyphene Screen NEGATIVE, Urine Barbiturates Screen NEGATIVE, Ur Tricyclic Antidepressants Screen NEGATIVE, Urine Phencyclidine Screen NEGATIVE, Urine Amphetamines Screen NEGATIVE, Urine Methamphetamines Screen NEGATIVE, Urine Benzodiazepines Screen NEGATIVE, Urine Cocaine Screen NEGATIVE, Urine Cannabinoids Screen POSITIVEH 05/24/23 21:39: Glucometer 232H 05/25/23 04:55: White Blood Count 9.3, Red Blood Count 4.26L, Hemoglobin 12.6L, Hematocrit 37L, Mean Corpuscular Volume 87, Mean Corpuscular Hemoglobin 30, Mean Corpuscular Hemoglobin Concent 34, Red Cell Distribution Width 14.2, Platelet Count 193, Mean Platelet Volume 11.0, Immature Granulocyte % (Auto) 0, Neutrophils (%) (Auto) 83H, Lymphocytes (%) (Auto) 8L, Monocytes (%) (Auto) 8, Eosinophils (%) (Auto) 0, Basophils (%) (Auto) 0, Neutrophils # (Auto) 7.7, Lymphocytes # (Auto) 0.8L, Monocytes # (Auto) 0.8, Eosinophils # (Auto) 0.0, Basophils # (Auto) 0.0, Immature Granulocyte # (Auto) 0.0, Neutrophils % (Manual) 75, Lymphocytes % (Manual) 16, Monocytes % (Manual) 7, Metamyelocytes % 1, Band Neutrophils 1, Blood Morphology Comment NORMAL, Sodium Level 140, Potassium Level 3.0L, Chloride Level 103, Carbon Dioxide Level 19L, Anion Gap 18H, Blood Urea Nitrogen 14, Creatinine 0.89, Estimat Glomerular Filtration Rate 112, BUN/Creatinine Ratio 16, Glucose Level 283H, Calcium Level 9.0, Corrected Calcium 8.9, Total Bilirubin 1.4H, Aspartate Amino Transf (AST/SGOT) 15, Alanine Aminotransferase (ALT/SGPT) 30, Alkaline Phosphatase 110, Total Protein 6.6, Albumin 4.1 Assessment/Plan Assessment/Plan Assessment/Plan Gastroparesis Possible Cyclic vomiting syndrome Epigastric abdominal pain Intractable nausea & vomiting T2DM HTN - on hydralazine & nitroglycerin Positive Drug screen-Marijuana Clear liquids, possible bland diet? Continue antiemetics Supportive care Get bowels moving Monitor fluids & electrolytes Denies Marijuana but had positive on drug screen. Discussed portion of his symptoms could be caused by use, and if is using needs complete cessation. Tight glucose control SHAUNNA TOVAR DO 05/25/23 1121: Subjective Subjective/Events-last exam Still with nausea and vomiting. Still with upper abdominal pain. Can't keep anything down. No new complaints. Denies fever sweats chills shortness of breath or chest pain. Objective Exam General Appearance: Anxious, Chronically ill HEENT: PERRL/EOMI, Normal ENT Inspection Neck: Non Tender Respiratory: Chest Non Tender, No Accessory Muscle Use, No Respiratory Distress Cardiovascular: No JVD, Tachycardia Gastrointestinal: soft, tenderness (Epigastric, minimal) Extremity: Normal Capillary Refill, Normal Range of Motion Neurologic/Psychiatric: Alert, Oriented x3, Normal Mood/Affect Skin: Normal Color, Warm/Dry Lymphatic: No Adenopathy Assessment/Plan Assessment/Plan Assessment/Plan Gastroparesis Possible Cyclic vomiting syndrome Epigastric abdominal pain Intractable nausea & vomiting T2DM HTN - on hydralazine & nitroglycerin Positive Drug screen-Marijuana Hypokalemia Clear liquids, possible bland diet? Continue antiemetics Supportive care Monitor fluids & electrolytes Denies recent Marijuana but had positive on drug screen. Discussed portion of his symptoms could be caused by use, and if is using needs complete cessation. Tight glucose control Supervisory-Addendum Brief Verification & Attestation Participated in pt care: history, MDM, physical Personally performed: exam, history, MDM, supervision of care Care discussed with: Medical Student Procedures: n/a Results interpretation: Verified all documentation Verification and Attestation of Medical Student E/M Service A medical student performed and documented this service in my presence. I reviewed and verified all information documented by the medical student and made modifications to such information, when appropriate. I personally performed the physical exam and medical decision making. Shaunna Tovar, May 25, 2023,11:21 IZABELLA HUNT May 25, 2023 06:24 SHAUNNA TOVAR DO May 25, 2023 11:21
[2023-05-25 07:30] VITALS: BP 184/104
[2023-05-25] MEDS: ONDANSETRON INJECTION 4 MG/2 ML (SDV) IV PRN ×2 (07:37→15:13)
[2023-05-25] MEDS: SENNOSIDES 8.6 MG TABLET PO SCH ×2 (09:06→19:46)
[2023-05-25] MEDS: DOCUSATE SODIUM 100 MG CAPSULE PO SCH ×2 (09:06→19:46)
--- NOTE | 2023-05-25 09:09 | Progress Note ---
ZAHEER OBANDO 05/25/23 0909: Subjective Subjective/Events-last exam Marcelino Chen is a 37 y/o male intractable nausea and vomiting that has not improved since yesterday. He reports vomiting about once a minute. The emesis is still watery, with no blood or bile present. He reports urinating this morning, but has not had a bowel movement for the last three days. UA today proved positive for cannabinoids which he endorses taking a delta 8 edible in early April, but not since then. He is concerned about his blood sugar levels and would like to know if he can take his insulin today. He denies any medication helping with his nausea/vomiting in the last 24 hrs except maybe promethazine. Review of Systems General: No Chills; Fatigue Pulmonary: Dyspnea Cardiovascular: No: Palpitations Gastrointestinal: Nausea, Vomiting Genitourinary: No Dysuria Objective Exam Last Set of Vital Signs Vital Signs Date Time Temp Pulse Resp B/P (MAP) Pulse Ox O2 Delivery O2 Flow Rate FiO2 05/25/23 07:30 37.3 108 18 184/104 (130) 98 Room Air 05/24/23 05:26 21 Capillary Refill : I&O Intake and Output 05/25/23 00:00 Intake Total 5000 ml Output Total 1650 ml Balance 3350 ml Intake Oral 3050 ml IV Total 1950 ml Output Emesis 1650 ml # Voids 11 # Emeses 17 Daily Weight Change Yes, 2-13 lbs General: Alert, Oriented X3, Cooperative, Mild Distress HEENT: Atraumatic Neck: Supple Lungs: Clear to Auscultation, Normal Air Movement Heart: No Murmurs (tachycardia, regular rhythm) Abdomen: Soft (decreased bowel sounds), No Tenderness, Other (epigastric abdominal pain) Extremities: No Cyanosis Psych/Mental Status: Mental Status NL Results Lab Laboratory Tests 05/24/23 11:58: Urine Opiates Screen NEGATIVE, Urine Oxycodone Screen NEGATIVE, Urine Methadone Screen NEGATIVE, Urine Propoxyphene Screen NEGATIVE, Urine Barbiturates Screen NEGATIVE, Ur Tricyclic Antidepressants Screen NEGATIVE, Urine Phencyclidine Screen NEGATIVE, Urine Amphetamines Screen NEGATIVE, Urine Methamphetamines Screen NEGATIVE, Urine Benzodiazepines Screen NEGATIVE, Urine Cocaine Screen NEGATIVE, Urine Cannabinoids Screen POSITIVEH 05/24/23 21:39: Glucometer 232H 05/25/23 04:55: White Blood Count 9.3, Red Blood Count 4.26L, Hemoglobin 12.6L, Hematocrit 37L, Mean Corpuscular Volume 87, Mean Corpuscular Hemoglobin 30, Mean Corpuscular Hemoglobin Concent 34, Red Cell Distribution Width 14.2, Platelet Count 193, Mean Platelet Volume 11.0, Immature Granulocyte % (Auto) 0, Neutrophils (%) (Auto) 83H, Lymphocytes (%) (Auto) 8L, Monocytes (%) (Auto) 8, Eosinophils (%) (Auto) 0, Basophils (%) (Auto) 0, Neutrophils # (Auto) 7.7, Lymphocytes # (Auto) 0.8L, Monocytes # (Auto) 0.8, Eosinophils # (Auto) 0.0, Basophils # (Auto) 0.0, Immature Granulocyte # (Auto) 0.0, Neutrophils % (Manual) 75, Lymphocytes % ( Manual) 16, Monocytes % (Manual) 7, Metamyelocytes % 1, Band Neutrophils 1, Blood Morphology Comment NORMAL, Sodium Level 140, Potassium Level 3.0L, Chloride Level 103, Carbon Dioxide Level 19L, Anion Gap 18H, Blood Urea Nitrogen 14, Creatinine 0.89, Estimat Glomerular Filtration Rate 112, BUN/Creatinine Ratio 16, Glucose Level 283H, Calcium Level 9.0, Corrected Calcium 8.9, Total Bilirubin 1.4H, Aspartate Amino Transf (AST/SGOT) 15, Alanine Aminotransferase (ALT/SGPT) 30, Alkaline Phosphatase 110, Total Protein 6.6, Albumin 4.1 Assessment/Plan Assessment/Plan Assess & Plan/Chief Complaint Assessment: Marcelino Chen is a 37 y/o male with intractable nausea/vomiting and gastroparesis. Plan: Nausea/Vomiting -severe reaction to Ozempic -s/p cholecystectomy Apr 16, 2023 -continue anti-emetics -IV fluids Gastroparesis -2/2 DM II -tighter insulin control - begin long acting insulin HTN -continue nitroglycerine and hydralizine Hypokalemia -IV potassium supplementation Clinical Quality Measures Admission Status Admission Dx Assessment: Mr. Chen is a 37 y/o male presenting for a 1 day history of intractable nausea/vomiting. Plan: Nausea/Vomiting - continue prokinetics -continue anti-emetics -supportive care as needed -monitor vitals and fluid I&O -reconcile medication list for emesis triggers Anxiety d/t Emesis -lorazepam to reduce anxiety SARAH WARNER DO 05/25/232038: Subjective Date Seen by a Provider: May 24, 2023 Time Seen by a Provider: 11:00 Subjective/Events-last exam No major changes Continued N/V Severe gastroparesis Objective Exam General: Alert, Oriented X3, Cooperative, No Acute Distress Lungs: Clear to Auscultation, Normal Air Movement Heart: Regular Rate, Normal S1, Normal S2, No Murmurs Assessment/Plan Assessment/Plan Assess & Plan/Chief Complaint IVF Anti-emetics Pain control Insulin long acting Supervisory-Addendum Brief Verification & Attestation Participated in pt care: history, MDM, physical Personally performed: exam, history, MDM, supervision of care Care discussed with: Medical Student Procedures: n/a Results interpretation: Verified all documentation Verification and Attestation of Medical Student E/M Service A medical student performed and documented this service in my presence. I reviewed and verified all information documented by the medical student and made modifications to such information, when appropriate. I personally performed the physical exam and medical decision making. Sarah Warner, May 25, 2023,20:38 ZAHEER OBANDO May 25, 2023 09:09 SARAH WARNER DO May 25, 2023 20:39
[2023-05-25 11:50] VITALS: BP 196/115
[2023-05-25] MEDS: POTASSIUM CL 10MEQ/50ML IVPB 50 ML IV SCH ×4 (11:57→15:03)
[2023-05-25] MEDS: inSUlin DETERMIR 1 UNIT/0.01 ML (CHARGE PER UNIT) SQ SCH ×2 (11:57→20:03)
[2023-05-25 16:05] VITALS: BP 184/104
[2023-05-25 19:54] VITALS: BP 182/100
[2023-05-26] VITALS (9 sets, daily range): BP systolic 106–199; BP diastolic 87–118
[2023-05-26] MEDS: ACETAMINOPHEN 325 MG TABLET PO PRN ×2 (01:47→23:31)
[2023-05-26] MEDS: PROMETHAZINE INJ 25 MG/ML VIAL IVP PRN ×3 (02:41→14:50)
[2023-05-26] MEDS: LACTATED RINGERS 1,000 ML 1,000 ML IV SCH ×3 (05:07→22:02)
[2023-05-26] MEDS: METOCLOPRAMIDE INJ 10 MG/2 ML IVP SCH ×4 (05:07→23:28)
[2023-05-26] MEDS: hydrALAZINE INJECTION 20 MG/ML VIAL IV PRN ×3 (05:07→16:05)
[2023-05-26] MEDS: ENOXAPARIN 40 MG/0.4 ML SYRINGE SC SCH (05:08)
[2023-05-26 06:02] LABS: BASOPHILS % (AUTO) 0 % (0-10); EOSINOPHILS % (AUTO) 0 % (0-10); HEMATOCRIT 39 % (40-54); HEMOGLOBIN 13.1 g/dL (13.3-17.7); LYMPHOCYTES % (AUTO) 14 % (12-44); MEAN CORPUSCULAR HEMOGLOBIN 29 pg (25-34); MEAN CORPUSCULAR HGB CONC 34 g/dL (32-36); MEAN CORPUSCULAR VOLUME 86 fL (80-99); MEAN PLATELET VOLUME 10.7 fL (9.0-12.2); MONOCYTES # (AUTO) 0.9 10^3/uL (0.0-1.0); MONOCYTES % (AUTO) 11 % (0-12); NEUTROPHILS # (AUTO) 5.7 10^3/uL (1.8-7.8); NEUTROPHILS % (AUTO) 75 % (42-75); PLATELET COUNT 176 10^3/uL (130-400); WHITE BLOOD COUNT 7.6 10^3/uL (4.3-11.0)
[2023-05-26 06:10] LABS: ALBUMIN 3.9 GM/DL (3.2-4.5)
[2023-05-26 06:11] LABS: POTASSIUM 3.2 MMOL/L (3.6-5.0)
[2023-05-26 06:12] LABS: CALCIUM 8.8 MG/DL (8.5-10.1)
[2023-05-26 06:13] LABS: TOTAL PROTEIN 6.6 GM/DL (6.4-8.2)
[2023-05-26 06:15] LABS: BILIRUBIN,TOTAL 1.3 MG/DL (0.1-1.0)
[2023-05-26 06:17] LABS: CREATININE SERUM 0.72 MG/DL (0.60-1.30)
--- NOTE | 2023-05-26 06:28 | Progress Note - Surgery ---
IZABELLA HUNT 05/26/23 0628: Subjective Date Seen by a Provider: May 26, 2023 Time Seen by a Provider: 06:00 Subjective/Events-last exam Patient's vomiting has decreased and when asked about his average vomiting per hour for the night, he didn't know. Still having some mild abdominal pain, but it's manageable. Antiemetics have not been helping. Still is able to have a liquid diet, but unable to keep it down. Does have some jello with him, but does not want to eat it. He is having a headache still and chest pain, but denies any visual changes or eye pain. Stated that he was sweating last night and drenched the bed, along with some fever. Review of Systems General: Chills, Night Sweats HEENT: Head Aches; No Visual Changes, No Eye Pain Pulmonary: No Dyspnea, No Cough Cardiovascular: Chest Pain; No: Edema Gastrointestinal: Nausea, Vomiting, Abdominal Pain Genitourinary: No Dysuria, No Frequency Musculoskeletal: neck pain, back pain Neurological: Weakness; No: Change in speech Objective Exam Vital Signs Date Time Temp Pulse Resp B/P (MAP) Pulse Ox O2 Delivery O2 Flow Rate FiO2 05/26/23 04:59 36.5 97 22 199/115 (143) 98 05/26/23 00:00 37.2 102 20 192/108 (136) 95 Room Air 05/25/23 20:00 Room Air 05/25/23 19:54 37.8 113 17 182/100 (127) 94 Room Air 05/25/23 16:05 37.6 88 24 184/104 (130) 96 Room Air 2.00 05/25/23 11:50 37.5 114 18 196/115 (142) 95 Room Air 05/25/23 09:03 98 Room Air 05/25/23 07:30 37.3 108 18 184/104 (130) 98 Room Air I & O 05/26/23 07:00 Intake Total 3885 ml Output Total 1675 ml Balance 2210 ml Capillary Refill : General Appearance: Anxious, Chronically ill HEENT: PERRL/EOMI Respiratory: Lungs Clear, No Accessory Muscle Use, No Respiratory Distress Cardiovascular: No JVD, Tachycardia Peripheral Pulses: 1+ Dorsalis Pedis (R), 1+ Left Dors-Pedis (L); 2+ Radial Pulses (R), 2+ Radial Pulses (L) Gastrointestinal: soft, tenderness (Minimal, Epigastric) Neurologic/Psychiatric: Alert, Oriented x3, Normal Mood/Affect Skin: Normal Color, Warm/Dry Results Lab Laboratory Tests 05/25/23 19:50: Glucometer 250H 05/26/23 05:42: White Blood Count 7.6, Red Blood Count 4.49, Hemoglobin 13.1L, Hematocrit 39L, Mean Corpuscular Volume 86, Mean Corpuscular Hemoglobin 29, Mean Corpuscular Hemoglobin Concent 34, Red Cell Distribution Width 13.4, Platelet Count 176, Mean Platelet Volume 10.7, Immature Granulocyte % (Auto) 1, Neutrophils (%) (Auto) 75, Lymphocytes (%) (Auto) 14, Monocytes (%) (Auto) 11, Eosinophils (%) (Auto) 0, Basophils (%) (Auto) 0, Neutrophils # (Auto) 5.7, Lymphocytes # (Auto) 1.0, Monocytes # (Auto) 0.9, Eosinophils # (Auto) 0.0, Basophils # (Auto) 0.0, Immature Granulocyte # (Auto) 0.0, Sodium Level 133L, Potassium Level 3.2L, Chloride Level 100, Carbon Dioxide Level 23, Anion Gap 10, Blood Urea Nitrogen 9, Creatinine 0.72, Estimat Glomerular Filtration Rate 119, BUN/Creatinine Ratio 13, Glucose Level 210H, Calcium Level 8.8, Corrected Calcium 8.9, Total Bilirubin 1.3H, Aspartate Amino Transf (AST/SGOT) 14, Alanine Aminotransferase (ALT/SGPT) 26, Alkaline Phosphatase 104, Total Protein 6.6, Albumin 3.9 Assessment/Plan Assessment/Plan Assessment/Plan Gastroparesis Possible Cyclic vomiting syndrome Epigastric abdominal pain Intractable nausea & vomiting T2DM HTN - on hydralazine & nitroglycerin Positive Drug screen-Marijuana Continue IVF and antiemetics Electrolyte replenishment SHAUNNA TOVAR DO 05/27/23 1003: Subjective Subjective/Events-last exam Still with nausea and emesis but decreased. Mild abdominal epigastric pain. Liquid diet unable to keep down. Denies n/v fever sweats chills shortness of breath or chest pain. Objective Exam General Appearance: Anxious, Chronically ill HEENT: PERRL/EOMI, Normal ENT Inspection Neck: Full Range of Motion, Non Tender Respiratory: Chest Non Tender, No Accessory Muscle Use, No Respiratory Distress Cardiovascular: Tachycardia Gastrointestinal: soft, tenderness (Minimal, Epigastric) Extremity: Non Tender, No Calf Tenderness Neurologic/Psychiatric: Alert, Oriented x3, Normal Mood/Affect Skin: Normal Color, Warm/Dry Lymphatic: No Adenopathy Assessment/Plan Assessment/Plan Assessment/Plan Gastroparesis Possible Cyclic vomiting syndrome Epigastric abdominal pain Intractable nausea & vomiting T2DM HTN Positive Drug screen-Marijuana Continue IVF and antiemetics Electrolyte replacement Denies recent marijuana use, discussed avoidance in case it's a trigger. When can tolerate liquids would consider ugi with small bowel follow through Supervisory-Addendum Brief Verification & Attestation Participated in pt care: history, MDM, physical Personally performed: exam, history, MDM, supervision of care Care discussed with: Medical Student Procedures: n/a Results interpretation: Verified all documentation Verification and Attestation of Medical Student E/M Service A medical student performed and documented this service in my presence. I reviewed and verified all information documented by the medical student and made modifications to such information, when appropriate. I personally performed the physical exam and medical decision making. Shaunna Tovar, May 26, 2023,10:03 IZABELLA HUNT May 26, 2023 06:28 SHAUNNA TOVAR DO May 27, 2023 10:03
[2023-05-26] MEDS: ONDANSETRON INJECTION 4 MG/2 ML (SDV) IV PRN ×3 (07:44→22:08)
[2023-05-26] MEDS: NITROGLYCERIN 2% OINT 1 GM UNIT DOSE PACKET TOP PRN (07:47)
[2023-05-26] MEDS ORDERED: RT-ALBUTEROL SULF 2.5 MG/3 ML PRE-MIX VIAL INH PRN (09:00)
--- NOTE | 2023-05-26 09:10 | Progress Note ---
ZAHEER OBANDO 05/26/23 0910: Subjective Subjective/Events-last exam CC: Intractable Nausea/Vomiting HPI: Mr. Chen is doing better today. Aside from only getting an hour of sleep overnight, he is vomiting less frequently, roughly 4-6 times per hour. He also reports having significantly less abdominal pain compared to the past few days. His abdominal pain is primarily in the LLQ and he describes it as a sharp pain. He reports waking up in the middle of the night drenched in sweat and has been having a few chills this morning. He also reports having a headache for the past few days thats 5/10. Oxycodone has not helped, but he reports tylenol has been beneficial. He has urinated this morning, but has not had a bowel movement. Objective Exam Last Set of Vital Signs Vital Signs Date Time Temp Pulse Resp B/P (MAP) Pulse Ox O2 Delivery O2 Flow Rate FiO2 05/26/23 08:53 115 16 178/117 (137) 05/26/23 08:40 37.2 97 21 05/26/23 08:30 Room Air 0.00 Capillary Refill : I&O Intake and Output 05/26/23 00:00 Intake Total 4335 ml Output Total 1225 ml Balance 3110 ml Intake Oral 3135 ml IV Total 1200 ml Output Urine Total 425 ml Emesis 800 ml # Voids 7 # Bowel Movements 1 # Emeses 2 General: Alert, Oriented X3, Cooperative HEENT: Atraumatic Lungs: Clear to Auscultation Heart: Other (tachycardia, normal rhythm) Abdomen: Other (decreased bowel sounds) Extremities: No Clubbing, Normal Pulses Skin: No Rashes Neuro: Normal Gait Psych/Mental Status: Mental Status NL Results Lab Laboratory Tests 05/25/23 19:50: Glucometer 250H 05/26/23 05:42: White Blood Count 7.6, Red Blood Count 4.49, Hemoglobin 13.1L, Hematocrit 39L, Mean Corpuscular Volume 86, Mean Corpuscular Hemoglobin 29, Mean Corpuscular Hemoglobin Concent 34, Red Cell Distribution Width 13.4, Platelet Count 176, Mean Platelet Volume 10.7, Immature Granulocyte % (Auto) 1, Neutrophils (%) (Auto) 75, Lymphocytes (%) (Auto) 14, Monocytes (%) (Auto) 11, Eosinophils (%) (Auto) 0, Basophils (%) (Auto) 0, Neutrophils # (Auto) 5.7, Lymphocytes # (Auto) 1.0, Monocytes # (Auto) 0.9, Eosinophils # (Auto) 0.0, Basophils # (Auto) 0.0, Immature Granulocyte # (Auto) 0.0, Sodium Level 133L, Potassium Level 3.2L, Chloride Level 100, Carbon Dioxide Level 23, Anion Gap 10, Blood Urea Nitrogen 9, Creatinine 0.72, Estimat Glomerular Filtration Rate 119, BUN/Creatinine Ratio 13, Glucose Level 210H, Calcium Level 8.8, Corrected Calcium 8.9, Total Bilirubin 1.3H, Aspartate Amino Transf (AST/SGOT) 14, Alanine Aminotransferase (ALT/SGPT) 26, Alkaline Phosphatase 104, Total Protein 6.6, Albumin 3.9 05/26/23 08:41: Glucometer 187H Assessment/Plan Assessment/Plan Assess & Plan/Chief Complaint Assessment: Marcelino Chen is a 37 y/o male with intractable nausea/vomiting and gastroparesis. Plan: Nausea/Vomiting -severe reaction to Ozempic -s/p cholecystectomy Apr 16, 2023 -continue anti-emetics -IV fluids -continue liquid diet Gastroparesis -2/2 DM II -tighter insulin control - begin long acting insulin -blood glucose 280 ->180 HTN -continue nitroglycerine and hydralizine -add IV enalapril Hypokalemia -continue IV potassium supplementation -K+ 3.0 ->3.2 Clinical Quality Measures Admission Status Admission Dx Assessment: Mr. Chen is a 37 y/o male presenting for a 1 day history of intractable nausea/vomiting. Plan: Nausea/Vomiting - continue prokinetics -continue anti-emetics -supportive care as needed -monitor vitals and fluid I&O -reconcile medication list for emesis triggers Anxiety d/t Emesis -lorazepam to reduce anxiety SARAH WARNER DO 05/27/23 0447: Subjective Date Seen by a Provider: May 26, 2023 Time Seen by a Provider: 11:00 Subjective/Events-last exam No major issues Vomiting continues Increased BP meds initiated but his elevation indicates likely poor control at home as his sugars Review of Systems General: Fatigue, Malaise Objective Exam General: Alert, Oriented X3, Cooperative, No Acute Distress Lungs: Clear to Auscultation, Normal Air Movement Heart: Regular Rate Assessment/Plan Assessment/Plan Assess & Plan/Chief Complaint Add enalapril and clonidine patch Supervisory-Addendum Brief Verification & Attestation Participated in pt care: history, MDM, physical Personally performed: exam, history, MDM, supervision of care Care discussed with: Medical Student Procedures: n/a Results interpretation: Verified all documentation Verification and Attestation of Medical Student E/M Service A medical student performed and documented this service in my presence. I reviewed and verified all information documented by the medical student and made modifications to such information, when appropriate. I personally performed the physical exam and medical decision making. Sarah Warner, May 27, 2023,04:44 ZAHEER OBANDO May 26, 2023 09:10 SARAH WARNER DO May 27, 2023 04:47
[2023-05-26] MEDS: inSUlin DETERMIR 1 UNIT/0.01 ML (CHARGE PER UNIT) SQ SCH ×2 (09:15→22:02)
[2023-05-26] MEDS: SENNOSIDES 8.6 MG TABLET PO SCH ×2 (09:16→21:08)
[2023-05-26] MEDS: DOCUSATE SODIUM 100 MG CAPSULE PO SCH ×2 (09:16→21:08)
[2023-05-26] MEDS ORDERED: CLONIDINE 0.1 MG TD SCH (11:30)
[2023-05-26] MEDS: ENALAPRILAT INJ 2.5 MG/2 ML VIAL IV SCH ×3 (11:40→23:28)
[2023-05-26] MEDS: POTASSIUM CL 10MEQ/50ML IVPB 50 ML IV SCH ×8 (11:43→18:15)
[2023-05-27] VITALS (7 sets, daily range): BP systolic 130–184; BP diastolic 82–108
[2023-05-27] MEDS: METOCLOPRAMIDE INJ 10 MG/2 ML IVP SCH ×4 (05:31→23:01)
[2023-05-27] MEDS: ENALAPRILAT INJ 2.5 MG/2 ML VIAL IV SCH ×4 (05:31→23:01)
[2023-05-27] MEDS: LACTATED RINGERS 1,000 ML 1,000 ML IV SCH ×4 (05:31→23:01)
[2023-05-27] MEDS: ENOXAPARIN 40 MG/0.4 ML SYRINGE SC SCH (05:32)
[2023-05-27 05:48] LABS: BASOPHILS % (AUTO) 0 % (0-10); EOSINOPHILS # (AUTO) 0.1 10^3/uL (0.0-0.3); EOSINOPHILS % (AUTO) 1 % (0-10); HEMATOCRIT 41 % (40-54); HEMOGLOBIN 13.9 g/dL (13.3-17.7); LYMPHOCYTES # (AUTO) 1.5 10^3/uL (1.0-4.0); LYMPHOCYTES % (AUTO) 21 % (12-44); MEAN CORPUSCULAR HEMOGLOBIN 29 pg (25-34); MEAN CORPUSCULAR HGB CONC 34 g/dL (32-36); MEAN CORPUSCULAR VOLUME 86 fL (80-99); MEAN PLATELET VOLUME 10.6 fL (9.0-12.2); MONOCYTES # (AUTO) 0.8 10^3/uL (0.0-1.0); MONOCYTES % (AUTO) 12 % (0-12); NEUTROPHILS # (AUTO) 4.7 10^3/uL (1.8-7.8); NEUTROPHILS % (AUTO) 66 % (42-75); PLATELET COUNT 203 10^3/uL (130-400); WHITE BLOOD COUNT 7.2 10^3/uL (4.3-11.0)
[2023-05-27 06:14] LABS: ALBUMIN 3.9 GM/DL (3.2-4.5); BILIRUBIN,TOTAL 1.2 MG/DL (0.1-1.0); CALCIUM 9.2 MG/DL (8.5-10.1); CREATININE SERUM 0.84 MG/DL (0.60-1.30); POTASSIUM 3.4 MMOL/L (3.6-5.0); TOTAL PROTEIN 6.5 GM/DL (6.4-8.2)
--- NOTE | 2023-05-27 07:51 | Progress Note - Surgery ---
JATINJANNETH 05/27/23 0751: Subjective Date Seen by a Provider: May 27, 2023 Time Seen by a Provider: 07:30 Subjective/Events-last exam Patient still is not able to keep liquids down and reports having 3-4 episodes of vomiting per hour. He had 2 episodes of diarrhea yesterday. He reports no fever, chest pain, or chills today but still has a mild headache and epigastric pain. Review of Systems General: No Chills, No Night Sweats; Fatigue, Malaise HEENT: Head Aches (mild ); No Visual Changes Pulmonary: No Dyspnea Cardiovascular: No: Palpitations, Edema Gastrointestinal: Nausea, Vomiting, Abdominal Pain Genitourinary: No Dysuria, No Hematuria Musculoskeletal: No: neck pain, shoulder pain Neurological: No: Numbness, Confusion Objective Exam Vital Signs Date Time Temp Pulse Resp B/P (MAP) Pulse Ox O2 Delivery O2 Flow Rate FiO2 05/27/23 07:33 36.9 99 18 180/90 (120) 98 Room Air 05/27/23 03:52 36.1 93 18 130/82 (98) 98 Room Air 05/27/23 00:41 161/100 (120) 05/26/23 23:19 37.3 101 20 196/118 (144) 98 Room Air 05/26/23 20:20 98 Room Air 0.00 05/26/23 19:54 98 Room Air 05/26/23 19:33 37.0 99 20 134/87 (103) 98 Room Air 05/26/23 16:07 37.1 101 20 188/114 (138) 96 Room Air 05/26/23 11:13 37.3 114 16 169/109 (129) 98 Room Air 05/26/23 08:53 115 16 178/117 (137) 05/26/23 08:40 37.2 114 97 21 05/26/23 08:30 97 Room Air 0.00 05/26/23 08:00 Room Air I & O 05/27/23 07:00 Intake Total 4240 ml Output Total 2500 ml Balance 1740 ml Capillary Refill : General Appearance: Anxious, Chronically ill HEENT: PERRL/EOMI Respiratory: Lungs Clear, No Accessory Muscle Use, No Respiratory Distress Cardiovascular: No JVD, No Murmur, Tachycardia Peripheral Pulses: 1+ Dorsalis Pedis (R), 1+ Left Dors-Pedis (L); 2+ Radial Pulses (R), 2+ Radial Pulses (L) Gastrointestinal: soft, tenderness (Minimal, Epigastric) Neurologic/Psychiatric: Alert, Oriented x3, Normal Mood/Affect Skin: Normal Color, Warm/Dry Results Lab Laboratory Tests 05/26/23 08:41: Glucometer 187H 05/27/23 05:21: White Blood Count 7.2, Red Blood Count 4.75, Hemoglobin 13.9, Hematocrit 41, Mean Corpuscular Volume 86, Mean Corpuscular Hemoglobin 29, Mean Corpuscular Hemoglobin Concent 34, Red Cell Distribution Width 13.2, Platelet Count 203, Mean Platelet Volume 10.6, Immature Granulocyte % (Auto) 0, Neutrophils (%) (Auto) 66, Lymphocytes (%) (Auto) 21, Monocytes (%) (Auto) 12, Eosinophils (%) (Auto) 1, Basophils (%) (Auto) 0, Neutrophils # (Auto) 4.7, Lymphocytes # (Auto) 1.5, Monocytes # (Auto) 0.8, Eosinophils # (Auto) 0.1, Basophils # (Auto) 0.0, Immature Granulocyte # (Auto) 0.0, Sodium Level 136, Potassium Level 3.4L, Chloride Level 102, Carbon Dioxide Level 20L, Anion Gap 14, Blood Urea Nitrogen 12, Creatinine 0.84, Estimat Glomerular Filtration Rate 114, BUN/Creatinine Ratio 14, Glucose Level 177H, Calcium Level 9.2, Corrected Calcium 9.3, Total Bilirubin 1.2H, Aspartate Amino Transf (AST/SGOT) 15, Alanine Aminotransferase (ALT/SGPT) 20, Alkaline Phosphatase 101, Total Protein 6.5, Albumin 3.9 Assessment/Plan Assessment/Plan Assessment/Plan Asessment: Gastroparesis Possible Cyclic vomiting syndrome Epigastric abdominal pain Intractable nausea & vomiting T2DM HTN - on hydralazine & nitroglycerin Positive Drug screen-Marijuana Plan: Continue IVF and antiemetics Electrolyte replenishment SHAUNNA TOVAR DO 05/27/23 2018: Subjective Subjective/Events-last exam Still with nausea, slightly less emesis. Still some epigastric pain. Can't keep down any significant amount of fluids. + headache. No family at bedside. Denies fever sweats chills shortness of breath or chest pain. Objective Exam General Appearance: No Apparent Distress, Chronically ill HEENT: PERRL/EOMI, Normal ENT Inspection Neck: Full Range of Motion, Normal Inspection Respiratory: Chest Non Tender, No Accessory Muscle Use, No Respiratory Distress Cardiovascular: Regular Rate, Rhythm, No JVD Gastrointestinal: soft, tenderness (Minimal, Epigastric) Extremity: Normal Inspection, Non Tender Neurologic/Psychiatric: Alert, Oriented x3 Skin: Normal Color, Warm/Dry Lymphatic: No Adenopathy Assessment/Plan Assessment/Plan Assessment/Plan Gastroparesis Possible Cyclic vomiting syndrome Epigastric abdominal pain Intractable nausea & vomiting T2DM HTN Positive Drug screen-Marijuana Continue IVF and antiemetics Electrolyte replacement Denies recent marijuana use, discussed avoidance in case it's a trigger. When can tolerate liquids would consider ugi with small bowel follow through still will not tolerate at this time. Supervisory-Addendum Brief Verification & Attestation Participated in pt care: history, MDM, physical Personally performed: exam, history, MDM, supervision of care Care discussed with: Medical Student Procedures: n/a Results interpretation: Verified all documentation Verification and Attestation of Medical Student E/M Service A medical student performed and documented this service in my presence. I reviewed and verified all information documented by the medical student and made modifications to such information, when appropriate. I personally performed the physical exam and medical decision making. Shaunna Tovar, May 27, 2023,20:18 VERAS May 27, 2023 07:51 SHAUNNA TOVAR DO May 27, 2023 20:18
[2023-05-27] MEDS: DOCUSATE SODIUM 100 MG CAPSULE PO SCH ×2 (08:20→19:06)
[2023-05-27] MEDS: inSUlin DETERMIR 1 UNIT/0.01 ML (CHARGE PER UNIT) SQ SCH ×2 (08:20→21:04)
[2023-05-27] MEDS: SENNOSIDES 8.6 MG TABLET PO SCH ×2 (08:20→19:06)
[2023-05-27] MEDS: ONDANSETRON INJECTION 4 MG/2 ML (SDV) IV PRN ×2 (08:21→15:08)
--- NOTE | 2023-05-27 08:57 | Progress Note ---
ZAHEER OBANDO 05/27/23 0857: Subjective Subjective/Events-last exam CC: Intractable Nausea/vomiting HPI: Mr. Chen was found sleeping in bed and reports doing better today. He still has persistent nausea, but his vomiting has decreased significantly compared to yesterday. He has been able to get a few hours of continuous sleep overnight. He has been able to keep down more fluids, but has not had any solid foods. He had diarrhea x2 since yesterday. He denies any headache or abdominal pain, but reports abdominal TTP. He is still having some chills this morning. Review of Systems General: Chills, Fatigue HEENT: No Head Aches, No Visual Changes Pulmonary: No Dyspnea Cardiovascular: No: Chest Pain, Palpitations, Lt Headedness Gastrointestinal: Nausea, Vomiting, Diarrhea Genitourinary: No Dysuria Objective Exam Last Set of Vital Signs Vital Signs Date Time Temp Pulse Resp B/P (MAP) Pulse Ox O2 Delivery O2 Flow Rate FiO2 05/27/23 07:33 36.9 99 18 180/90 (120) 98 Room Air 05/26/23 20:20 0.00 05/26/23 08:40 21 Capillary Refill : I&O Intake and Output 05/27/23 00:00 Intake Total 4018 ml Output Total 2100 ml Balance 1918 ml Intake Oral 2718 ml IV Total 1300 ml Output Urine Total 1400 ml Emesis 700 ml # Voids 1 # Bowel Movements 3 General: Alert, Oriented X3, Cooperative, Mild Distress HEENT: Atraumatic Neck: Supple Lungs: Clear to Auscultation, Normal Air Movement Heart: Regular Rate Abdomen: Normal Bowel Sounds Extremities: No Cyanosis, No Edema, Normal Pulses Neuro: Normal Speech Psych/Mental Status: Mental Status NL Results Lab Laboratory Tests 05/27/23 05:21: White Blood Count 7.2, Red Blood Count 4.75, Hemoglobin 13.9, Hematocrit 41, Mean Corpuscular Volume 86, Mean Corpuscular Hemoglobin 29, Mean Corpuscular Hemoglobin Concent 34, Red Cell Distribution Width 13.2, Platelet Count 203, Mean Platelet Volume 10.6, Immature Granulocyte % (Auto) 0, Neutrophils (%) (Auto) 66, Lymphocytes (%) (Auto) 21, Monocytes (%) (Auto) 12, Eosinophils (%) (Auto) 1, Basophils (%) (Auto) 0, Neutrophils # (Auto) 4.7, Lymphocytes # (Auto) 1.5, Monocytes # (Auto) 0.8, Eosinophils # (Auto) 0.1, Basophils # (Auto) 0.0, Immature Granulocyte # (Auto) 0.0, Sodium Level 136, Potassium Level 3.4L, Chl oride Level 102, Carbon Dioxide Level 20L, Anion Gap 14, Blood Urea Nitrogen 12, Creatinine 0.84, Estimat Glomerular Filtration Rate 114, BUN/Creatinine Ratio 14, Glucose Level 177H, Calcium Level 9.2, Corrected Calcium 9.3, Total Bilirubin 1.2H, Aspartate Amino Transf (AST/SGOT) 15, Alanine Aminotransferase (ALT/SGPT) 20, Alkaline Phosphatase 101, Total Protein 6.5, Albumin 3.9 Assessment/Plan Assessment/Plan Assess & Plan/Chief Complaint Assessment: Marcelino Chen is a 37 y/o male with intractable nausea/vomiting and gastroparesis. Plan: Nausea/Vomiting -severe reaction to Ozempic -s/p cholecystectomy Apr 16, 2023 -continue anti-emetics -IV fluids -continue liquid diet Gastroparesis -2/2 DM II -continue long acting insulin -blood glucose 280 ->180->177 HTN -continue nitroglycerine and hydralizine -continue enalapril and clonidine Hypokalemia -continue IV potassium supplementation -K+ 3.0 ->3.2->3.4 Clinical Quality Measures Admission Status Admission Dx Assessment: Mr. Chen is a 37 y/o male presenting for a 1 day history of intractable nausea/vomiting. Plan: Nausea/Vomiting - continue prokinetics -continue anti-emetics -supportive care as needed -monitor vitals and fluid I&O -reconcile medication list for emesis triggers Anxiety d/t Emesis -lorazepam to reduce anxiety SARAH WARNER DO 05/27/232102: Subjective Date Seen by a Provider: May 27, 2023 Time Seen by a Provider: 11:00 Subjective/Events-last exam Patient doing a little bit better Elevated blood pressure still an issue Objective Exam General: Alert, Oriented X3, Cooperative, No Acute Distress Assessment/Plan Assessment/Plan Assess & Plan/Chief Complaint Continue antiemetics Blood pressure medication Supervisory-Addendum Brief Verification & Attestation Participated in pt care: history, MDM, physical Personally performed: exam, history, MDM, supervision of care Care discussed with: Medical Student Procedures: n/a Results interpretation: Verified all documentation Verification and Attestation of Medical Student E/M Service A medical student performed and documented this service in my presence. I reviewed and verified all information documented by the medical student and made modifications to such information, when appropriate. I personally performed the physical exam and medical decision making. Sarah Warner, May 27, 2023,21:02 ZAHEER OBANDO May 27, 2023 08:57 SARAH WARNER DO May 27, 2023 21:03
[2023-05-27] MEDS: POTASSIUM CL 10MEQ/50ML IVPB 50 ML IV SCH ×8 (12:22→23:14)
[2023-05-27] MEDS: ACETAMINOPHEN 325 MG TABLET PO PRN (12:34)
[2023-05-27] MEDS ORDERED: POTASSIUM CL 10MEQ/50ML IVPB 50 ML IV ONE (21:41)
[2023-05-28 03:39] VITALS: BP 172/89
[2023-05-28] MEDS: ENALAPRILAT INJ 2.5 MG/2 ML VIAL IV SCH ×4 (04:27→23:14)
[2023-05-28] MEDS: METOCLOPRAMIDE INJ 10 MG/2 ML IVP SCH ×4 (04:27→23:14)
[2023-05-28] MEDS: ENOXAPARIN 40 MG/0.4 ML SYRINGE SC SCH (04:28)
[2023-05-28 04:51] LABS: BASOPHILS % (AUTO) 0 % (0-10); EOSINOPHILS # (AUTO) 0.5 10^3/uL (0.0-0.3); EOSINOPHILS % (AUTO) 8 % (0-10); HEMATOCRIT 36 % (40-54); HEMOGLOBIN 12.6 g/dL (13.3-17.7); LYMPHOCYTES # (AUTO) 1.6 10^3/uL (1.0-4.0); LYMPHOCYTES % (AUTO) 25 % (12-44); MEAN CORPUSCULAR HEMOGLOBIN 30 pg (25-34); MEAN CORPUSCULAR HGB CONC 35 g/dL (32-36); MEAN CORPUSCULAR VOLUME 85 fL (80-99); MEAN PLATELET VOLUME 10.7 fL (9.0-12.2); MONOCYTES # (AUTO) 0.7 10^3/uL (0.0-1.0); MONOCYTES % (AUTO) 11 % (0-12); NEUTROPHILS # (AUTO) 3.4 10^3/uL (1.8-7.8); NEUTROPHILS % (AUTO) 55 % (42-75); PLATELET COUNT 192 10^3/uL (130-400); WHITE BLOOD COUNT 6.2 10^3/uL (4.3-11.0)
[2023-05-28 05:05] LABS: ALBUMIN 3.7 GM/DL (3.2-4.5); CALCIUM 8.9 MG/DL (8.5-10.1); CREATININE SERUM 0.81 MG/DL (0.60-1.30); POTASSIUM 3.8 MMOL/L (3.6-5.0)
--- NOTE | 2023-05-28 06:27 | Progress Note - Surgery ---
IZABELLA HUNT 05/28/23 0627: Subjective Date Seen by a Provider: May 28, 2023 Time Seen by a Provider: 06:15 Subjective/Events-last exam Patient reports he is doing very well and that he stopped vomiting since yesterday morning. Having very minimal pain, but is still having a headache which he believes is due to him not eating. Is on a clear diet and is tolerating well, but cannot advance diet Nurse stated that he did not have any pain medication last night. Denies any eye pain, visual changes. Is having some chest pain. Review of Systems General: No Chills, No Night Sweats HEENT: Head Aches; No Visual Changes, No Eye Pain Pulmonary: No Dyspnea, No Cough Cardiovascular: Chest Pain; No: Edema Gastrointestinal: Nausea (Not much), Abdominal Pain; No: Vomiting Genitourinary: No Dysuria, No Frequency Musculoskeletal: neck pain; No: shoulder pain Neurological: No: Weakness, Confusion Objective Exam Vital Signs Date Time Temp Pulse Resp B/P (MAP) Pulse Ox O2 Delivery O2 Flow Rate FiO2 05/28/23 03:39 36.6 79 20 172/89 (116) 99 Room Air 05/27/23 22:59 36.7 81 20 154/98 (116) 98 Room Air 05/27/23 19:25 Room Air 05/27/23 19:24 36.9 86 20 165/104 (124) 98 Room Air 05/27/23 19:21 96 Room Air 05/27/23 15:26 36.9 80 18 180/105 (130) 99 Room Air 0.00 0.00 05/27/23 11:32 36.8 90 20 184/108 (133) 98 Room Air 05/27/23 11:27 98 Room Air 05/27/23 08:30 Room Air 05/27/23 07:33 36.9 99 18 180/90 (120) 98 Room Air I & O 05/28/23 07:00 Intake Total 3070 ml Output Total 2875 ml Balance 195 ml Capillary Refill : General Appearance: No Apparent Distress, Chronically ill HEENT: PERRL/EOMI Respiratory: Lungs Clear, Normal Breath Sounds, No Accessory Muscle Use, No Respiratory Distress Cardiovascular: Regular Rate, Rhythm, No JVD Peripheral Pulses: 1+ Dorsalis Pedis (R), 1+ Left Dors-Pedis (L); 2+ Radial Pulses (R), 2+ Radial Pulses (L) Gastrointestinal: soft, tenderness (Minimal, Epigastric) Neurologic/Psychiatric: Alert, Oriented x3, Normal Mood/Affect Skin: Normal Color, Warm/Dry Results Lab Laboratory Tests 05/27/23 21:01: Glucometer 169H 05/28/23 04:20: White Blood Count 6.2, Red Blood Count 4.26L, Hemoglobin 12.6L, Hematocrit 36L, Mean Corpuscular Volume 85, Mean Corpuscular Hemoglobin 30, Mean Corpuscular Hemoglobin Concent 35, Red Cell Distribution Width 13.3, Platelet Count 192, Mean Platelet Volume 10.7, Immature Granulocyte % (Auto) 1, Neutrophils (%) (Auto) 55, Lymphocytes (%) (Auto) 25, Monocytes (%) (Auto) 11, Eosinophils (%) (Auto) 8, Basophils (%) (Auto) 0, Neutrophils # (Auto) 3.4, Lymphocytes # (Auto) 1.6, Monocytes # (Auto) 0.7, Eosinophils # (Auto) 0.5H, Basophils # (Auto) 0.0, Immature Granulocyte # (Auto) 0.0, Sodium Level 135, Potassium Level 3.8, Chloride Level 100, Carbon Dioxide Level 25, Anion Gap 10, Blood Urea Nitrogen 9, Creatinine 0.81, Estimat Glomerular Filtration Rate 115, BUN/Creatinine Ratio 11, Glucose Level 129H, Calcium Level 8.9, Corrected Calcium 9.1, Total Bilirubin 1.0, Aspartate Amino Transf (AST/SGOT) 16, Alanine Aminotransferase (ALT/SGPT) 20, Alkaline Phosphatase 87, Total Protein 6.0L, Albumin 3.7 Assessment/Plan Assessment/Plan Assessment/Plan Gastroparesis Possible Cyclic vomiting syndrome Epigastric abdominal pain Intractable nausea & vomiting T2DM HTN - on hydralazine & nitroglycerin Positive Drug screen-Marijuana Continue clears UGI with small bowel through SHAUNNA TOVAR DO 05/29/23 1328: Subjective Subjective/Events-last exam Patient feeling better. Minimal abdominal pain. Stopped having emesis. Tolerating liquids. Less nausea. Denies fever sweats chills shortness of breath or chest pain. Objective Exam General Appearance: No Apparent Distress, Chronically ill HEENT: PERRL/EOMI, Normal ENT Inspection Neck: Normal Inspection, Non Tender Respiratory: Chest Non Tender, No Accessory Muscle Use, No Respiratory Distress Cardiovascular: Regular Rate, Rhythm, No JVD Gastrointestinal: soft, tenderness (Minimal, Epigastric) Neurologic/Psychiatric: Alert, Oriented x3, Normal Mood/Affect Skin: Normal Color, Warm/Dry Lymphatic: No Adenopathy Assessment/Plan Assessment/Plan Assessment/Plan Gastroparesis Possible Cyclic vomiting syndrome Epigastric abdominal pain Intractable nausea & vomiting T2DM HTN - on hydralazine & nitroglycerin Positive Drug screen-Marijuana Continue liquid diet Reviewed ct abd pelvis with fluid ing gb fossa, will get hida to evaluate for leak. Supervisory-Addendum Brief Verification & Attestation Participated in pt care: history, MDM, physical Personally performed: exam, history, MDM, supervision of care Care discussed with: Medical Student Procedures: n/a Results interpretation: Verified all documentation Verification and Attestation of Medical Student E/M Service A medical student performed and documented this service in my presence. I reviewed and verified all information documented by the medical student and made modifications to such information, when appropriate. I personally performed the physical exam and medical decision making. Shaunna Tovar, May 28, 2023,17:27 IZABELLA HUNT May 28, 2023 06:27 SHAUNNA TOVAR DO May 29, 2023 13:28
[2023-05-28] MEDS: LACTATED RINGERS 1,000 ML 1,000 ML IV SCH ×2 (07:23→17:01)
[2023-05-28 07:48] VITALS: BP 153/100
[2023-05-28] MEDS ORDERED: amLODIPine 5 MG TABLET PO ONE (08:15)
[2023-05-28] MEDS: inSUlin DETERMIR 1 UNIT/0.01 ML (CHARGE PER UNIT) SQ SCH ×2 (08:15→21:36)
[2023-05-28] MEDS: hydrALAZINE INJECTION 20 MG/ML VIAL IV PRN (08:16)
[2023-05-28] MEDS: DOCUSATE SODIUM 100 MG CAPSULE PO SCH ×2 (08:18→18:48)
[2023-05-28] MEDS: SENNOSIDES 8.6 MG TABLET PO SCH ×2 (08:18→18:48)
[2023-05-28] MEDS: amLODIPine 5 MG TABLET PO SCH (08:30)
[2023-05-28 11:42] VITALS: BP 147/99
[2023-05-28] MEDS ORDERED: DIATRIZOATE MEGLUM/SODIUM 37% 120 ML (GASTROGRAFIN) PO ONE (12:30)
--- NOTE | 2023-05-28 14:34 | Diagnostic Imaging Report ---
PROCEDURE: CT abdomen and pelvis with contrast. TECHNIQUE: Multiple contiguous axial images were obtained through the abdomen and pelvis after administration of intravenous contrast. Auto Exposure Controls were utilized during the CT exam to meet ALARA standards for radiation dose reduction. All CT scans use one or more of the following dose optimizing techniques: automated exposure control, MA and/or KvP adjustment based on patient size and exam type or iterative reconstruction. INDICATION: Gastroparesis. COMPARISON: CT from 04/12/2023. FINDINGS: The lung bases are clear. The heart is normal in size. The liver demonstrates no focal lesions. There does appear to be fatty infiltration. Cholecystectomy clips are noted. There is a small fluid collection in the gallbladder fossa with surrounding edema. This measures about 4.0 x 4.5 cm in size. The spleen is upper normal in size. The pancreas appears normal. The adrenal glands are normal. The kidneys demonstrate no enhancing lesions or hydronephrosis. There is contrast in the stomach and small bowel and in the colon. No bowel distention is seen. There is trace free fluid in the pelvis. There is no evidence of obstruction. The appendix is not seen but no secondary findings of appendicitis are identified. The aorta is normal in caliber. There is no lymphadenopathy. There is air in the anterior subcutaneous fat which is likely from recent injection. No acute osseous abnormality is seen. IMPRESSION: 1. Cholecystectomy changes with fluid collection in the gallbladder fossa, may represent a postoperative seroma/hematoma or a bile leak. There is trace free fluid in the pelvis. 2. Gastrografin contrast in stomach, small bowel and large bowel down to the rectum. No bowel obstruction is seen. Dictated by: Dictated on workstation # [id number]
--- NOTE | 2023-05-28 14:35 | Progress Note ---
Subjective Date Seen by a Provider: May 28, 2023 Time Seen by a Provider: 08:00 Subjective/Events-last exam Patient much improved No nausea vomiting since yesterday morning Blood pressure meds will be given Objective Exam Last Set of Vital Signs Vital Signs Date Time Temp Pulse Resp B/P (MAP) Pulse Ox O2 Delivery O2 Flow Rate FiO2 05/28/23 11:42 36.6 78 16 147/99 (115) 99 Room Air 05/27/23 15:26 0.00 0.00 05/26/23 08:40 21 Capillary Refill : I&O Intake and Output 05/28/23 00:00 Intake Total 3242 ml Output Total 3475 ml Balance -233 ml Intake Oral 2992 ml IV Total 250 ml Output Urine Total 3475 ml General: Alert, Oriented X3, Cooperative, No Acute Distress Lungs: Clear to Auscultation, Normal Air Movement Heart: Regular Rate, Normal S1, Normal S2, No Murmurs Psych/Mental Status: Mental Status NL, Mood NL Results Lab Laboratory Tests 05/27/23 21:01: Glucometer 169H 05/28/23 04:20: White Blood Count 6.2, Red Blood Count 4.26L, Hemoglobin 12.6L, Hematocrit 36L, Mean Corpuscular Volume 85, Mean Corpuscular Hemoglobin 30, Mean Corpuscular Hemoglobin Concent 35, Red Cell Distribution Width 13.3, Platelet Count 192, Mean Platelet Volume 10.7, Immature Granulocyte % (Auto) 1, Neutrophils (%) (Auto) 55, Lymphocytes (%) (Auto) 25, Monocytes (%) (Auto) 11, Eosinophils (%) (Auto) 8, Basophils (%) (Auto) 0, Neutrophils # (Auto) 3.4, Lymphocytes # (Auto) 1.6, Monocytes # (Auto) 0.7, Eosinophils # (Auto) 0.5H, Basophils # (Auto) 0.0, Immature Granulocyte # (Auto) 0.0, Sodium Level 135, Potassium Level 3.8, Chloride Level 100, Carbon Dioxide Level 25, Anion Gap 10, Blood Urea Nitrogen 9, Creatinine 0.81, Estimat Glomerular Filtration Rate 115, BUN/Creatinine Ratio 11, Glucose Level 129H, Calcium Level 8.9, Corrected Calcium 9.1, Total Bilirubin 1.0, Aspartate Amino Transf (AST/SGOT) 16, Alanine Aminotransferase (ALT/SGPT) 20, Alkaline Phosphatase 87, Total Protein 6.0L, Albumin 3.7 Assessment/Plan Assessment/Plan Assess & Plan/Chief Complaint Continue antiemetics Blood pressure medication Clinical Quality Measures Admission Status Admission Dx Assessment: Refractory nausea and vomiting Severe gastroparesis Recent cholecystectomy Severe side effect from Ozempic March 2023 Plan: Insulin management IV fluids Antiemetics ARELI WARNER DO May 28, 2023 14:35
[2023-05-28 15:25] VITALS: BP 139/88
[2023-05-28] MEDS: ACETAMINOPHEN 325 MG TABLET PO PRN (17:14)
[2023-05-28 19:50] VITALS: BP 138/90
[2023-05-28 23:13] VITALS: BP 146/94
[2023-05-29] MEDS: LACTATED RINGERS 1,000 ML 1,000 ML IV SCH ×2 (01:27→10:29)
[2023-05-29 04:38] VITALS: BP 159/92
[2023-05-29] MEDS: ENOXAPARIN 40 MG/0.4 ML SYRINGE SC SCH (04:40)
[2023-05-29] MEDS: METOCLOPRAMIDE INJ 10 MG/2 ML IVP SCH ×4 (04:40→23:05)
[2023-05-29] MEDS: ENALAPRILAT INJ 2.5 MG/2 ML VIAL IV SCH ×4 (04:40→23:05)
[2023-05-29 05:20] LABS: BASOPHILS % (AUTO) 0 % (0-10); EOSINOPHILS # (AUTO) 0.5 10^3/uL (0.0-0.3); EOSINOPHILS % (AUTO) 12 % (0-10); HEMATOCRIT 34 % (40-54); HEMOGLOBIN 11.3 g/dL (13.3-17.7); LYMPHOCYTES # (AUTO) 1.2 10^3/uL (1.0-4.0); LYMPHOCYTES % (AUTO) 28 % (12-44); MEAN CORPUSCULAR HEMOGLOBIN 29 pg (25-34); MEAN CORPUSCULAR HGB CONC 34 g/dL (32-36); MEAN CORPUSCULAR VOLUME 86 fL (80-99); MEAN PLATELET VOLUME 10.5 fL (9.0-12.2); MONOCYTES # (AUTO) 0.5 10^3/uL (0.0-1.0); MONOCYTES % (AUTO) 11 % (0-12); NEUTROPHILS % (AUTO) 49 % (42-75); PLATELET COUNT 146 10^3/uL (130-400); WHITE BLOOD COUNT 4.2 10^3/uL (4.3-11.0)
[2023-05-29 05:37] LABS: ALBUMIN 3.1 GM/DL (3.2-4.5); BILIRUBIN,TOTAL 0.6 MG/DL (0.1-1.0); CALCIUM 8.8 MG/DL (8.5-10.1); CREATININE SERUM 0.73 MG/DL (0.60-1.30); POTASSIUM 3.4 MMOL/L (3.6-5.0); TOTAL PROTEIN 5.7 GM/DL (6.4-8.2)
[2023-05-29] MEDS ORDERED: MAGNESIUM 1 GM/100 ML IVPB 100 ML IV ONE ×2 (06:30→14:15)
[2023-05-29] MEDS: POTASSIUM CL 10MEQ/50ML IVPB 50 ML IV SCH ×4 (06:43→11:40)
--- NOTE | 2023-05-29 06:44 | Progress Note - Surgery ---
IZABELLA HUNT 05/29/23 0644: Subjective Date Seen by a Provider: May 29, 2023 Time Seen by a Provider: 06:30 Subjective/Events-last exam Patient is doing well and his having minimal abdominal pain. Only complaint is his chest pain and headache. Had chicken broth and liquids last night which he tolerated well. NPO now as he is getting a HIDA scan. No fever, chills, eye pain, nausea, vomiting. Review of Systems General: No Chills, No Night Sweats HEENT: Head Aches; No Visual Changes, No Eye Pain Pulmonary: No Dyspnea, No Cough Cardiovascular: Chest Pain; No: Edema Gastrointestinal: No: Nausea, Vomiting Genitourinary: No Dysuria, No Frequency Musculoskeletal: No: neck pain, shoulder pain Neurological: No: Weakness, Change in speech Objective Exam Vital Signs Date Time Temp Pulse Resp B/P (MAP) Pulse Ox O2 Delivery O2 Flow Rate FiO2 05/29/23 04:38 37.2 76 18 159/92 (114) 98 Room Air 05/28/23 23:13 36.6 84 20 146/94 (111) 99 Room Air 05/28/23 19:50 36.9 93 16 138/90 (106) 98 Room Air 05/28/23 19:00 Room Air 05/28/23 15:25 36.8 91 17 139/88 (105) 97 Room Air 05/28/23 11:42 36.6 78 16 147/99 (115) 99 Room Air 05/28/23 08:58 Room Air 05/28/23 07:48 36.4 81 16 153/100 (117) 100 Room Air I & O 05/29/23 07:00 Intake Total 3420 ml Output Total 1100 ml Balance 2320 ml Capillary Refill : General Appearance: No Apparent Distress, Chronically ill HEENT: PERRL/EOMI Respiratory: Lungs Clear, Normal Breath Sounds, No Accessory Muscle Use, No Respiratory Distress Cardiovascular: Regular Rate, Rhythm, No JVD Peripheral Pulses: 1+ Dorsalis Pedis (R), 1+ Left Dors-Pedis (L); 2+ Radial Pulses (R), 2+ Radial Pulses (L) Gastrointestinal: soft, tenderness (Minimal, Epigastric) Neurologic/Psychiatric: Alert, Oriented x3, Normal Mood/Affect Skin: Normal Color, Warm/Dry Results Lab Laboratory Tests 05/28/23 21:10: Glucometer 151H 05/29/23 04:58: White Blood Count 4.2L, Red Blood Count 3.89L, Hemoglobin 11.3L, Hematocrit 34L, Mean Corpuscular Volume 86, Mean Corpuscular Hemoglobin 29, Mean Corpuscular Hemoglobin Concent 34, Red Cell Distribution Width 13.4, Platelet Count 146, Mean Platelet Volume 10.5, Immature Granulocyte % (Auto) 0, Neutrophils (%) (Auto) 49, Lymphocytes (%) (Auto) 28, Monocytes (%) (Auto) 11, Eosinophils (%) (Auto) 12H, Basophils (%) (Auto) 0, Neutrophils # (Auto) 2.0, Lymphocytes # (Auto) 1.2, Monocytes # (Auto) 0.5, Eosinophils # (Auto) 0.5H, Basophils # (Auto) 0.0, Immature Granulocyte # (Auto) 0.0, Sodium Level 135, Potassium Level 3.4L, Chloride Level 101, Carbon Dioxide Level 26, Anion Gap 8, Blood Urea Nitrogen 5L, Creatinine 0.73, Estimat Glomerular Filtration Rate 119, BUN/Creatinine Ratio 7, Glucose Level 151H, Calcium Level 8.8, Corrected Calcium 9.5, Total Bilirubin 0.6, Aspartate Amino Transf (AST/SGOT) 15, Alanine Aminotra nsferase (ALT/SGPT) 19, Alkaline Phosphatase 77, Total Protein 5.7L, Albumin 3.1L 05/29/23 06:25: Magnesium Level 1.8 Assessment/Plan Assessment/Plan Assessment/Plan Gastroparesis Possible Cyclic vomiting syndrome Epigastric abdominal pain Intractable nausea & vomiting T2DM HTN - on hydralazine & nitroglycerin Positive Drug screen-Marijuana HIDA scan Advance diet to soft after scan SHAUNNA TOVAR DO 05/29/23 1331: Subjective Subjective/Events-last exam Feeling well today. NPO. Had HIDA this morning with no definite evidence of leak. No abdominal pain. Not having any nausea or emesis now. Denies fever sweats chills shortness of breath or chest pain. Objective Exam General Appearance: No Apparent Distress, Chronically ill HEENT: PERRL/EOMI, Normal ENT Inspection Neck: Full Range of Motion, Non Tender Respiratory: Chest Non Tender, No Accessory Muscle Use, No Respiratory Distress Cardiovascular: Regular Rate, Rhythm, No JVD Gastrointestinal: non tender, soft Extremity: Normal Range of Motion, Non Tender Neurologic/Psychiatric: Alert, Oriented x3 Skin: Normal Color, Warm/Dry Lymphatic: No Adenopathy Assessment/Plan Assessment/Plan Assessment/Plan Gastroparesis Possible Cyclic vomiting syndrome Epigastric abdominal pain Intractable nausea & vomiting T2DM HTN - on hydralazine & nitroglycerin Positive Drug screen-Marijuana HIDA scan reviewed with patient. No definite evidence of bile leak. With gastroparesis would keep on liquids diet and multiple throughout the day r ather than 3 meals. Keep blood sugars well controlled. Reglan. Supervisory-Addendum Brief Verification & Attestation Participated in pt care: history, MDM, physical Personally performed: exam, history, MDM, supervision of care Care discussed with: Medical Student Procedures: n/a Results interpretation: Verified all documentation Verification and Attestation of Medical Student E/M Service A medical student performed and documented this service in my presence. I rev iewed and verified all information documented by the medical student and made modifications to such information, when appropriate. I personally performed the physical exam and medical decision making. Shaunna Tovar, May 29, 2023,13:31 IZABELLA HUNT May 29, 2023 06:44 SHAUNNA TOVAR DO May 29, 2023 13:31
[2023-05-29 07:32] VITALS: BP 149/94
[2023-05-29] MEDS: amLODIPine 5 MG TABLET PO SCH (09:18)
[2023-05-29] MEDS: DOCUSATE SODIUM 100 MG CAPSULE PO SCH ×2 (09:19→19:19)
[2023-05-29] MEDS: SENNOSIDES 8.6 MG TABLET PO SCH ×2 (09:19→19:19)
[2023-05-29] MEDS: inSUlin DETERMIR 1 UNIT/0.01 ML (CHARGE PER UNIT) SQ SCH ×2 (09:29→21:09)
--- NOTE | 2023-05-29 09:36 | Diagnostic Imaging Report ---
HEPATOBILIARY SCAN DATE: May 29, 2023. INDICATION: 37-year-old male, history of cholecystectomy one month ago. Nausea and abdominal pain. Evaluation for bile leak. COMPARISONS: CT abdomen and pelvis May 28, 2023. PROCEDURE: 5.26 mCi of Tc-99m Choletech was administered intravenously and serial anterior planar images over the liver and upper abdomen were obtained. FINDINGS: There is clearance of background activity about the liver indicating hepatocyte function. There is prompt excretion of radiotracer into the bile ducts with extension of radiotracer into small bowel. There is radiotracer activity along the left lobe of the liver which may relate to enterogastric reflux. There is no clear abnormal radiotracer activity specifically in the region of the gallbladder fossa. IMPRESSION: 1. No definite evidence of a bile leak. 2. Radiotracer uptake along the left lobe of the liver may reflect enterogastric reflux. 3. Areas of fluid attenuation in the gallbladder fossa and near the greater curvature of the stomach are without clear radiotracer accumulation at these locations. These may reflect nonspecific fluid collections. Dictated by: Dictated on workstation # [id number]
[2023-05-29 11:21] VITALS: BP 151/96
--- NOTE | 2023-05-29 11:27 | Progress Note ---
Subjective Date Seen by a Provider: May 29, 2023 Time Seen by a Provider: 11:30 Subjective/Events-last exam Improved overall Advancing diet Awaiting tomorrow for DC Objective Exam Last Set of Vital Signs Vital Signs Date Time Temp Pulse Resp B/P (MAP) Pulse Ox O2 Delivery O2 Flow Rate FiO2 05/29/23 11:21 36.8 72 17 151/96 (114) 98 Room Air 05/27/23 15:26 0.00 0.00 05/26/23 08:40 21 Capillary Refill : I&O Intake and Output 05/29/23 00:00 Intake Total 2720 ml Output Total 1600 ml Balance 1120 ml Intake Oral 1720 ml IV Total 1000 ml Output Urine Total 1600 ml # Voids 5 # Bowel Movements 4 General: Alert, Oriented X3, Cooperative, No Acute Distress Lungs: Clear to Auscultation, Normal Air Movement Heart: Regular Rate, Normal S1, Normal S2, No Murmurs Results Lab Laboratory Tests 05/28/23 21:10: Glucometer 151H 05/29/23 04:58: White Blood Count 4.2L, Red Blood Count 3.89L, Hemoglobin 11.3L, Hematocrit 34L, Mean Corpuscular Volume 86, Mean Corpuscular Hemoglobin 29, Mean Corpuscular Hemoglobin Concent 34, Red Cell Distribution Width 13.4, Platelet Count 146, Mean Platelet Volume 10.5, Immature Granulocyte % (Auto) 0, Neutrophils (%) (Auto) 49, Lymphocytes (%) (Auto) 28, Monocytes (%) (Auto) 11, Eosinophils (%) (Auto) 12H, Basophils (%) (Auto) 0, Neutrophils # (Auto) 2.0, Lymphocytes # (Auto) 1.2, Monocytes # (Auto) 0.5, Eosinophils # (Auto) 0.5H, Basophils # (Auto) 0.0, Immature Granulocyte # (Auto) 0.0, Sodium Level 135, Potassium Level 3.4L, Chloride Level 101, Carbon Dioxide Level 26, Anion Gap 8, Blood Urea Nitrogen 5L, Creatinine 0.73, Estimat Glomerular Filtration Rate 119, BUN/Creatinine Ratio 7, Glucose Level 151H, Calcium Level 8.8, Corrected Calcium 9.5, Total Bilirubin 0.6, Aspartate Amino Transf (AST/SGOT) 15, Alanine Aminotransferase (ALT/SGPT) 19, Alkaline Phosphatase 77, Total Protein 5.7L, Albumin 3.1L 05/29/23 06:25: Magnesium Level 1.8 05/29/23 09:16: Glucometer 157H Assessment/Plan Assessment/Plan Assess & Plan/Chief Complaint Assessment: Severe and refractory gastroparesis Recent choly DM OOC on insulin HTN OOC Plan: Insulin IVF Regular diet Clinical Quality Measures Admission Status Admission Dx Assessment: Refractory nausea and vomiting Severe gastroparesis Recent cholecystectomy Severe side effect from Ozempic March 2023 Plan: Insulin management IV fluids Antiemetics ARELI WARNER DO May 29, 2023 11:27
[2023-05-29] MEDS ORDERED: BACLOFEN 10 MG TABLET PO PRN (11:30)
[2023-05-29] MEDS ORDERED: busPIRone 10 MG TABLET PO PRN (11:30)
[2023-05-29 15:17] VITALS: BP 154/102
[2023-05-29 19:17] VITALS: BP 161/100
[2023-05-29] MEDS ORDERED: CITALOPRAM 20 MG TABLET PO SCH (21:00)
[2023-05-29] MEDS ORDERED: PANTOPRAZOLE 40 MG TABLET PO SCH (21:00)
[2023-05-29] MEDS ORDERED: LOSARTAN 100 MG TABLET PO SCH (21:00)
[2023-05-29] MEDS ORDERED: LORATADINE 10 MG TABLET PO SCH (21:00)
[2023-05-29 23:04] VITALS: BP 158/88
[2023-05-30 04:36] VITALS: BP 153/94
[2023-05-30] MEDS: ENOXAPARIN 40 MG/0.4 ML SYRINGE SC SCH (04:37)
[2023-05-30] MEDS: METOCLOPRAMIDE INJ 10 MG/2 ML IVP SCH (04:37)
[2023-05-30] MEDS: ENALAPRILAT INJ 2.5 MG/2 ML VIAL IV SCH (04:37)
[2023-05-30 05:47] LABS: BASOPHILS % (AUTO) 0 % (0-10); EOSINOPHILS # (AUTO) 0.5 10^3/uL (0.0-0.3); EOSINOPHILS % (AUTO) 11 % (0-10); HEMATOCRIT 38 % (40-54); LYMPHOCYTES # (AUTO) 1.2 10^3/uL (1.0-4.0); LYMPHOCYTES % (AUTO) 23 % (12-44); MEAN CORPUSCULAR HEMOGLOBIN 30 pg (25-34); MEAN CORPUSCULAR HGB CONC 34 g/dL (32-36); MEAN CORPUSCULAR VOLUME 87 fL (80-99); MEAN PLATELET VOLUME 10.8 fL (9.0-12.2); MONOCYTES # (AUTO) 0.5 10^3/uL (0.0-1.0); MONOCYTES % (AUTO) 9 % (0-12); NEUTROPHILS # (AUTO) 2.8 10^3/uL (1.8-7.8); NEUTROPHILS % (AUTO) 56 % (42-75); PLATELET COUNT 181 10^3/uL (130-400)
[2023-05-30 05:59] LABS: BILIRUBIN,TOTAL 0.6 MG/DL (0.1-1.0); CALCIUM 9.5 MG/DL (8.5-10.1); CREATININE SERUM 0.77 MG/DL (0.60-1.30); POTASSIUM 3.9 MMOL/L (3.6-5.0); TOTAL PROTEIN 6.7 GM/DL (6.4-8.2)
--- NOTE | 2023-05-30 06:48 | Progress Note - Surgery ---
IZABELLA HUNT 05/30/23 0648: Subjective Date Seen by a Provider: May 30, 2023 Time Seen by a Provider: 06:25 Subjective/Events-last exam Patient is doing well and has not had any vomiting or nausea since 05/27, last Tuesday. Reports no abdominal pain. Currently on a clear diet and is tolerating it very well, but would like a regular diet once imaging is done. Denies fever, chills, headache, eye pain, and chest pain. Review of Systems General: No Chills, No Night Sweats HEENT: No Head Aches, No Eye Pain Pulmonary: No Dyspnea, No Cough Cardiovascular: No: Chest Pain, Edema Gastrointestinal: No: Nausea, Vomiting Genitourinary: No Dysuria, No Frequency Musculoskeletal: No: neck pain, shoulder pain Neurological: No: Weakness, Confusion Objective Exam Vital Signs Date Time Temp Pulse Resp B/P (MAP) Pulse Ox O2 Delivery O2 Flow Rate FiO2 05/30/23 04:36 36.7 67 20 153/94 (113) 99 Room Air 05/29/23 23:04 37.1 77 20 158/88 (111) 99 Room Air 05/29/23 21:00 Room Air 05/29/23 19:17 37.0 84 18 161/100 (120) 98 Room Air 05/29/23 19:15 Room Air 05/29/23 15:17 36.6 81 18 154/102 (119) 99 Room Air 05/29/23 11:21 36.8 72 17 151/96 (114) 98 Room Air 05/29/23 09:35 Room Air 05/29/23 07:32 36.9 70 16 149/94 (112) 99 Room Air I & O 05/30/23 06:59 Intake Total 3930 ml Balance 3930 ml Capillary Refill : General Appearance: No Apparent Distress, Chronically ill HEENT: PERRL/EOMI, Normal ENT Inspection Respiratory: Chest Non Tender, No Accessory Muscle Use, No Respiratory Distress Peripheral Pulses: 2+ Radial Pulses (R), 2+ Radial Pulses (L) Gastrointestinal: non tender, soft Neurologic/Psychiatric: Alert, Oriented x3, Normal Mood/Affect Skin: Normal Color, Warm/Dry Results Lab Laboratory Tests 05/29/23 09:16: Glucometer 157H 05/29/23 21:06: Glucometer 152H 05/30/23 05:15: White Blood Count 5.0, Red Blood Count 4.39, Hemoglobin 13.0L, Hematocrit 38L, Mean Corpuscular Volume 87, Mean Corpuscular Hemoglobin 30, Mean Corpuscular Hemoglobin Concent 34, Red Cell Distribution Width 13.2, Platelet Count 181, Mean Platelet Volume 10.8, Immature Granulocyte % (Auto) 0, Neutrophils (%) (Auto) 56, Lymphocytes (%) (Auto) 23, Monocytes (%) (Auto) 9, Eosinophils (%) (Auto) 11H, Basophils (%) (Auto) 0, Neutrophils # (Auto) 2.8, Lymphocytes # (Auto) 1.2, Monocytes # (Auto) 0.5, Eosinophils # (Auto) 0.5H, Basophils # (Auto) 0.0, Immature Granulocyte # (Auto) 0.0, Sodium Level 137, Potassium Level 3.9, Chloride Level 102, Carbon Dioxide Level 25, Anion Gap 10, Blood Urea Nitrogen 5L, Creatinine 0.77, Estimat Glomerular Filtration Rate 117, BUN/Creatinine Ratio 6, Glucose Level 131H, Calcium Level 9.5, Corrected Calcium 9.5, Total Bilirubin 0.6, Aspartate Amino Transf (AST/SGOT) 21, Alanine Aminotransferase (ALT/SGPT) 25, Alkaline Phosphatase 90, Total Protein 6.7, Albumin 4.0 Assessment/Plan Assessment/Plan Assessment/Plan Gastroparesis Possible Cyclic vomiting syndrome Epigastric abdominal pain Intractable nausea & vomiting T2DM HTN - on hydralazine & nitroglycerin Positive Drug screen-Marijuana Liquid diet Nutrition education Possible discharge today SHAUNNA TOVAR DO 05/30/23 1018: Subjective Subjective/Events-last exam Not having nausea or emesis. No abdominal pain. Tolerating clears No new complaints. Objective Exam General Appearance: No Apparent Distress, Chronically ill HEENT: PERRL/EOMI, Normal ENT Inspection Neck: Non Tender, Supple Respiratory: Chest Non Tender, No Accessory Muscle Use, No Respiratory Distress Cardiovascular: Regular Rate, Rhythm, No JVD Gastrointestinal: non tender, soft Extremity: Normal Inspection, Non Tender Neurologic/Psychiatric: Alert, Oriented x3 Skin: Normal Color, Warm/Dry Lymphatic: No Adenopathy Assessment/Plan Assessment/Plan Assessment/Plan Gastroparesis Possible Cyclic vomiting syndrome Epigastric abdominal pain Intractable nausea & vomiting T2DM HTN - on hydralazine & nitroglycerin Positive Drug screen-Marijuana Liquid diet need small frequent meals Reglan DM/gastroparesis education Supervisory-Addendum Brief Verification & Attestation Participated in pt care: history, MDM, physical Personally performed: exam, history, MDM, supervision of care Care discussed with: Medical Student Procedures: n/a Results interpretation: Verified all documentation Verification and Attestation of Medical Student E/M Service A medical student performed and documented this service in my presence. I reviewed and verified all information documented by the medical student and made modifications to such information, when appropriate. I personally performed the physical exam and medical decision making. Shaunna Tovar, May 30, 2023,10:22 IZABELLA HUNT May 30, 2023 06:48 SHAUNNA TOVAR DO May 30, 2023 10:18
[2023-05-30 07:10] VITALS: BP 138/87
[2023-05-30] MEDS: amLODIPine 5 MG TABLET PO SCH (08:31)
[2023-05-30] MEDS: DOCUSATE SODIUM 100 MG CAPSULE PO SCH (08:32)
[2023-05-30] MEDS: SENNOSIDES 8.6 MG TABLET PO SCH (08:32)
[2023-05-30] MEDS: inSUlin DETERMIR 1 UNIT/0.01 ML (CHARGE PER UNIT) SQ SCH (08:40)
[2023-05-30] MEDS ORDERED: METO-310 PO (11:09)
[2023-05-30] MEDS ORDERED: ONDA4TAB11 PO (11:09)
[2023-05-30] MEDS ORDERED: AMLO-250 PO (11:09)
--- NOTE | 2023-05-30 11:09 | Discharge Summary ---
Diagnosis/Chief Complaint Date of Admission May 24, 2023 at 00:27 Date of Discharge Discharge Date: May 30, 2023 Discharge Diagnosis Severe refractory nausea and vomiting from severe gastroparesis Hypertension [id number] Diabetes [id number] insulin-dependent Reason Hospital Visit CC: Refractory N/V HPI: This is a 37-year-old male with a past medical history of severe sla-aj-vrvanza diabetes managed on insulin who is a new patient to [facility] whom I spoke to about his management due to refractory nausea and vomiting from severe gastroparesis. He has been placed on IV fluids and antiemetics. Dr. Tovar consulted. Gastroparesis seem to worsen after Ozempic and has continued even following a cholecystectomy that was uncomplicated. Discharge Summary Discharge Physical Examination Allergies: Coded Allergies: semaglutide (Verified Allergy, Unknown, 05/23/23) Vitals & I&Os Vital Signs Date Time Temp Pulse Resp B/P (MAP) Pulse Ox O2 Delivery O2 Flow Rate FiO2 05/30/23 11:32 36.5 80 20 167/100 (122) 100 Room Air 05/27/23 15:26 0.00 0.00 05/26/23 08:40 21 General Appearance: Alert, Oriented X3, Cooperative Respiratory: Clear to Auscultation Cardiovascular: Regular Rate Psych/Mental Status: Mental Status NL Hospital Course Was the Problem List Reviewed?: Yes Lengthy hospital course after he was admitted for severe gastroparesis with nausea and vomiting. Patient has a history of this due to diabetes insulin- dependent rng-sw-[id number] and recent cholecystectomy and a diagnosis of gastroparesis. Multiple antiemetics initiated. IV fluids maintained. General surgery consult. Blood pressure and diabetes are somewhat difficult to control during hospital stay because of lack of p.o. intake. Overall he finally was able to improve and take p.o. and he was discharged in improved condition. Labs (last 24 hrs) Laboratory Tests 05/24/23 05:09: White Blood Count 7.8, Red Blood Count 4.65, Hemoglobin 13.7, Hematocrit 40, Mean Corpuscular Volume 85, Mean Corpuscular Hemoglobin 30, Mean Corpuscular Hemoglobin Concent 35, Red Cell Distribution Width 13.9, Platelet Count 198, Mean Platelet Volume 11.2, Immature Granulocyte % (Auto) 0, Neutrophils (%) (Auto) 79H, Lymphocytes (%) (Auto) 14, Monocytes (%) (Auto) 7, Eosinophils (%) (Auto) 0, Basophils (%) (Auto) 0, Neutrophils # (Auto) 6.1, Lymphocytes # (Auto) 1.1, Monocytes # (Auto) 0.5, Eosinophils # (Auto) 0.0, Basophils # (Auto) 0.0, Immature Granulocyte # (Auto) 0.0, Sodium Level 138, Potassium Level 3.3L, Chloride Level 101, Carbon Dioxide Level 20L, Anion Gap 17H, Blood Urea Nitrogen 13, Creatinine 1.00, Estimat Glomerular Filtration Rate 98, BUN/Creatinine Ratio 13, Glucose Level 299H, Calcium Level 9.6, Total Bilirubin 1.5H, Direct Bilirubin 0.6H, Indirect Bilirubin 0.9, Aspartate Amino Transf (AST/SGOT) 18, Alanine Aminotransferase (ALT/SGPT) 41, Alkaline Phosphatase 134, Total Protein 7.5, Albumin 4.4 05/24/23 11:58: Urine Opiates Screen NEGATIVE, Urine Oxycodone Screen NEGATIVE, Urine Methadone Screen NEGATIVE, Urine Propoxyphene Screen NEGATIVE, Urine Barbiturates Screen NEGATIVE, Ur Tricyclic Antidepressants Screen NEGATIVE, Urine Phencyclidine Scre en NEGATIVE, Urine Amphetamines Screen NEGATIVE, Urine Methamphetamines Screen NEGATIVE, Urine Benzodiazepines Screen NEGATIVE, Urine Cocaine Screen NEGATIVE, Urine Cannabinoids Screen POSITIVEH 05/24/23 21:39: Glucometer 232H 05/25/23 04:45: Magnesium Level 1.6 05/25/23 04:55: White Blood Count 9.3, Red Blood Count 4.26L, Hemoglobin 12.6L, Hematocrit 37L, Mean Corpuscular Volume 87, Mean Corpuscular Hemoglobin 30, Mean Corpuscular Hemoglobin Concent 34, Red Cell Distribution Width 14.2, Platelet Count 193, Mean Platelet Volume 11.0, Immature Granulocyte % (Auto) 0, Neutrophils (%) (Auto) 83H, Lymphocytes (%) (Auto) 8L, Monocytes (%) (Auto) 8, Eosinophils (%) (Auto) 0, Basophils (%) (Auto) 0, Neutrophils # (Auto) 7.7, Lymphocytes # (Auto) 0.8L, Monocytes # (Auto) 0.8, Eosinophils # (Auto) 0.0, Basophils # (Auto) 0.0, Immature Granulocyte # (Auto) 0.0, Neutrophils % (Manual) 75, Lymphocytes % (Manual) 16, Monocytes % (Manual) 7, Metamyelocytes % 1, Band Neutrophils 1, B lood Morphology Comment NORMAL, Sodium Level 140, Potassium Level 3.0L, Chloride Level 103, Carbon Dioxide Level 19L, Anion Gap 18H, Blood Urea Nitrogen 14, Creatinine 0.89, Estimat Glomerular Filtration Rate 112, BUN/Creatinine Ratio 16, Glucose Level 283H, Calcium Level 9.0, Corrected Calcium 8.9, Total Bilirubin 1.4H, Aspartate Amino Transf (AST/SGOT) 15, Alanine Aminotransferase (ALT/SGPT) 30, Alkaline Phosphatase 110, Total Protein 6.6, Albumin 4.1 05/25/23 19:50: Glucometer 250H 05/26/23 05:42: White Blood Count 7.6, Red Blood Count 4.49, Hemoglobin 13.1L, Hematocrit 39L, Mean Corpuscular Volume 86, Mean Corpuscular Hemoglobin 29, Mean Corpuscular Hemoglobin Concent 34, Red Cell Distribution Width 13.4, Platelet Count 176, Mean Platelet Volume 10.7, Immature Granulocyte % (Auto) 1, Neutrophils (%) (Auto) 75, Lymphocytes (%) (Auto) 14, Monocytes (%) (Auto) 11, Eosinophils (%) (Auto) 0, Basophils (%) (Auto) 0, Neutrophils # (Auto) 5.7, Lymphocytes # (Auto) 1.0, Monocytes # (Auto) 0.9, Eosinophils # (Auto) 0.0, Basophils # (Auto) 0.0, Immature Granulocyte # (Auto) 0.0, Sodium Level 133L, Potassium Level 3.2L, Chloride Level 100, Carbon Dioxide Level 23, Anion Gap 10, Blood Urea Nitrogen 9, Creatinine 0.72, Estimat Glomerular Filtration Rate 119, BUN/Creatinine Ratio 13, Glucose Level 210H, Calcium Level 8.8, Corrected Calcium 8.9, Total Bilirubin 1.3H, Aspartate Amino Transf (AST/SGOT) 14, Alanine Aminotransferase (ALT/SGPT) 26, Alkaline Phosphatase 104, Total Protein 6.6, Albumin 3.9 05/26/23 08:41: Glucometer 187H 05/27/23 05:21: White Blood Count 7.2, Red Blood Count 4.75, Hemoglobin 13.9, Hematocrit 41, Mean Corpuscular Volume 86, Mean Corpuscular Hemoglobin 29, Mean Corpuscular Hemoglobin Concent 34, Red Cell Distribution Width 13.2, Platelet Count 203, Mean Platelet Volume 10.6, Immature Granulocyte % (Auto) 0, Neutrophils (%) (Auto) 66, Lymphocytes (%) (Auto) 21, Monocytes (%) (Auto) 12, Eosinophils (%) (Auto) 1, Basophils (%) (Auto) 0, Neutrophils # (Auto) 4.7, Lymphocytes # (Auto) 1.5, Monocytes # (Auto) 0.8, Eosinophils # (Auto) 0.1, Basophils # (Auto) 0.0, Immature Granulocyte # (Auto) 0.0, Sodium Level 136, Potassium Level 3.4L, Chloride Level 102, Carbon Dioxide Level 20L, Anion Gap 14, Blood Urea Nitrogen 12, Creatinine 0.84, Estimat Glomerular Filtration Rate 114, BUN/Creatinine Ratio 14, Glucose Level 177H, Calcium Level 9.2, Corrected Calcium 9.3, Total Bilirubin 1.2H, Aspartate Amino Transf (AST/SGOT) 15, Alanine Aminotransferase (ALT/SGPT) 20, Alkaline Phosphatase 101, Total Protein 6.5, Albumin 3.9 05/27/23 21:01: Glucometer 169H 05/28/23 04:20: White Blood Count 6.2, Red Blood Count 4.26L, Hemoglobin 12.6L, Hematocrit 36L, Mean Corpuscular Volume 85, Mean Corpuscular Hemoglobin 30, Mean Corpuscular Hemoglobin Concent 35, Red Cell Distribution Width 13.3, Platelet Count 192, Mean Platelet Volume 10.7, Immature Granulocyte % (Auto) 1, Neutrophils (%) (Auto) 55, Lymphocytes (%) (Auto) 25, Monocytes (%) (Auto) 11, Eosinophils (%) (Auto) 8, Basophils (%) (Auto) 0, Neutrophils # (Auto) 3.4, Lymphocytes # (Auto) 1.6, Monocytes # (Auto) 0.7, Eosinophils # (Auto) 0.5H, Basophils # (Auto) 0.0, Immature Granulocyte # (Auto) 0.0, Sodium Level 135, Potassium Level 3.8, Chloride Level 100, Carbon Dioxide Level 25, Anion Gap 10, Blood Urea Nitrogen 9, Creatinine 0.81, Estimat Glomerular Filtration Rate 115, BUN/Creatinine Ratio 11, Glucose Level 129H, Calcium Level 8.9, Corrected Calcium 9.1, Total Bilirubin 1.0, Aspartate Amino Transf (AST/SGOT) 16, Alanine Aminotransferase (ALT/SGPT) 20, Alkaline Phosphatase 87, Total Protein 6.0L, Albumin 3.7 05/28/23 21:10: Glucometer 151H 05/29/23 04:58: White Blood Count 4.2L, Red Blood Count 3.89L, Hemoglobin 11.3L, Hematocrit 34L, Mean Corpuscular Volume 86, Mean Corpuscular Hemoglobin 29, Mean Corpuscular Hemoglobin Concent 34, Red Cell Distribution Width 13.4, Platelet Count 146, Mean Platelet Volume 10.5, Immature Granulocyte % (Auto) 0, Neutrophils (%) (Auto) 49, Lymphocytes (%) (Auto) 28, Monocytes (%) (Auto) 11, Eosinophils (%) (Auto) 12H, Basophils (%) (Auto) 0, Neutrophils # (Auto) 2.0, Lymphocytes # (Auto) 1.2, Monocytes # (Auto) 0.5, Eosinophils # (Auto) 0.5H, Basophils # (Auto) 0.0, Immature Granulocyte # (Auto) 0.0, Sodium Level 135, Potassium Level 3.4L, Chloride Level 101, Carbon Dioxide Level 26, Anion Gap 8, Blood Urea Nitrogen 5L, Creatinine 0.73, Estimat Glomerular Filtration Rate 119, BUN/Crea tinine Ratio 7, Glucose Level 151H, Calcium Level 8.8, Corrected Calcium 9.5, Total Bilirubin 0.6, Aspartate Amino Transf (AST/SGOT) 15, Alanine Aminotransferase (ALT/SGPT) 19, Alkaline Phosphatase 77, Total Protein 5.7L, Albumin 3.1L 05/29/23 06:25: Magnesium Level 1.8 05/29/23 09:16: Glucometer 157H 05/29/23 21:06: Glucometer 152H 05/30/23 05:15: White Blood Count 5.0, Red Blood Count 4.39, Hemoglobin 13.0L, Hematocrit 38L, Mean Corpuscular Volume 87, Mean Corpuscular Hemoglobin 30, Mean Corpuscular Hemoglobin Concent 34, Red Cell Distribution Width 13.2, Platelet Count 181, Mean Platelet Volume 10.8, Immature Granulocyte % (Auto) 0, Neutrophils (%) (Auto) 56, Lymphocytes (%) (Auto) 23, Monocytes (%) (Auto) 9, Eosinophils (%) (Auto) 11H, Basophils (%) (Auto) 0, Neutrophils # (Auto) 2.8, Lymphocytes # (Auto) 1.2, Monocytes # (Auto) 0.5, Eosinophils # (Auto) 0.5H, Basophils # (Auto) 0.0, Immature Granulocyte # (Auto) 0.0, Sodium Level 137, Potassium Level 3.9, Chloride Level 102, Carbon Dioxide Level 25, Anion Gap 10, Blood Urea Nitrogen 5L, Creatinine 0.77, Estimat Glomerular Filtration Rate 117, BUN/Creatinine Ratio 6, Glucose Level 131H, Calcium Level 9.5, Corrected Calcium 9.5, Total Bilirubin 0.6, Aspartate Amino Transf (AST/SGOT) 21, Alanine Aminotransferase (ALT/SGPT) 25, Alkaline Phosphatase 90, Total Protein 6.7, Albumin 4.0 05/30/23 08:33: Glucometer 234H Pending Labs Laboratory Tests 05/24/23 05:09: White Blood Count 7.8, Red Blood Count 4.65, Hemoglobin 13.7, Hematocrit 40, Mean Corpuscular Volume 85, Mean Corpuscular Hemoglobin 30, Mean Corpuscular Hemoglobin Concent 35, Red Cell Distribution Width 13.9, Platelet Count 198, Mean Platelet Volume 11.2, Immature Granulocyte % (Auto) 0, Neutrophils (%) (Auto) 79, Lymphocytes (%) (Auto) 14, Monocytes (%) (Auto) 7, Eosinophils (%) (Auto) 0, Basophils (%) (Auto) 0, Neutrophils # (Auto) 6.1, Lymphocytes # (Auto) 1.1, Monocytes # (Auto) 0.5, Eosinophils # (Auto) 0.0, Basophils # (Auto) 0.0, Immature Granulocyte # (Auto) 0.0, Sodium Level 138, Potassium Level 3.3, Chloride Level 101, Carbon Dioxide Level 20, Anion Gap 17, Blood Urea Nitrogen 13, Creatinine 1.00, Estimat Glomerular Filtration Rate 98, BUN/Creatinine Ratio 13, Glucose Level 299, Calcium Level 9.6, Total Bilirubin 1.5, Direct Bilirubin 0.6, Indirect Bilirubin 0.9, Aspartate Amino Transf (AST/SGOT) 18, Alanine Aminotransferase (ALT/SGPT) 41, Alkaline Phosphatase 134, Total Protein 7.5, Albumin 4.4 05/24/23 11:58: Urine Opiates Screen NEGATIVE, Urine Oxycodone Screen NEGATIVE, Urine Methadone Screen NEGATIVE, Urine Propoxyphene Screen NEGATIVE, Urine Barbiturates Screen NEGATIVE, Ur Tricyclic Antidepressants Screen NEGATIVE, Urine Phencyclidine Screen NEGATIVE, Urine Amphetamines Screen NEGATIVE, Urine Methamphetamines Screen NEGATIVE, Urine Benzodiazepines Screen NEGATIVE, Urine Cocaine Screen NEGATIVE, Urine Cannabinoids Screen POSITIVE 05/24/23 21:39: Glucometer 232 05/25/23 04:45: Magnesium Level 1.6 05/25/23 04:55: White Blood Count 9.3, Red Blood Count 4.26, Hemoglobin 12.6, Hematocrit 37, Mean Corpuscular Volume 87, Mean Corpuscular Hemoglobin 30, Mean Corpuscular Hemoglobin Concent 34, Red Cell Distribution Width 14.2, Platelet Count 193, Me an Platelet Volume 11.0, Immature Granulocyte % (Auto) 0, Neutrophils (%) (Auto) 83, Lymphocytes (%) (Auto) 8, Monocytes (%) (Auto) 8, Eosinophils (%) (Auto) 0, Basophils (%) (Auto) 0, Neutrophils # (Auto) 7.7, Lymphocytes # (Auto) 0.8, Monocytes # (Auto) 0.8, Eosinophils # (Auto) 0.0, Basophils # (Auto) 0.0, Immature Granulocyte # (Auto) 0.0, Neutrophils % (Manual) 75, Lymphocytes % (Manual) 16, Monocytes % (Manual) 7, Metamyelocytes % 1, Band Neutrophils 1, Blood Morphology Comment NORMAL, Sodium Level 140, Potassium Level 3.0, Chloride Level 103, Carbon Dioxide Level 19, Anion Gap 18, Blood Urea Nitrogen 14, Creatinine 0.89, Estimat Glomerular Filtration Rate 112, BUN/Creatinine Ratio 16, Glucose Level 283, Calcium Level 9.0, Corrected Calcium 8.9, Total Bilirubin 1.4, Aspartate Amino Transf (AST/SGOT) 15, Alanine Aminotransferase (ALT/SGPT) 30, Alkaline Phosphatase 110, Total Protein 6.6, Albumin 4.1 05/25/23 19:50: Glucometer 250 05/26/23 05:42: White Blood Count 7.6, Red Blood Count 4.49, Hemoglobin 13.1, Hematocrit 39, Mean Corpuscular Volume 86, Mean Corpuscular Hemoglobin 29, Mean Corpuscular Hemoglobin Concent 34, Red Cell Distribution Width 13.4, Platelet Count 176, Mean Platelet Volume 10.7, Immature Granulocyte % (Auto) 1, Neutrophils (%) (Auto) 75, Lymphocytes (%) (Auto) 14, Monocytes (%) (Auto) 11, Eosinophils (%) (Auto) 0, Basophils (%) (Auto) 0, Neutrophils # (Auto) 5.7, Lymphocytes # (Auto) 1.0, Monocytes # (Auto) 0.9, Eosinophils # (Auto) 0.0, Basophils # (Auto) 0.0, Immature Granulocyte # (Auto) 0.0, Sodium Level 133, Potassium Level 3.2, Chloride Level 100, Carbon Dioxide Level 23, Anion Gap 10, Blood Urea Nitrogen 9, Creatinine 0.72, Estimat Glomerular Filtration Rate 119, BUN/Creatinine Ratio 13, Glucose Level 210, Calcium Level 8.8, Corrected Calcium 8.9, Total Bilirubin 1.3, Aspartate Amino Transf (AST/SGOT) 14, Alanine Aminotransferase (ALT/SGPT) 26, Alkaline Phosphatase 104, Total Protein 6.6, Albumin 3.9 05/26/23 08:41: Glucometer 187 05/27/23 05:21: White Blood Count 7.2, Red Blood Count 4.75, Hemoglobin 13.9, Hematocrit 41, Mean Corpuscular Volume 86, Mean Corpuscular Hemoglobin 29, Mean Corpuscular Hemoglobin Concent 34, Red Cell Distribution Width 13.2, Platelet Count 203, Mean Platelet Volume 10.6, Immature Granulocyte % (Auto) 0, Neutrophils (%) (Auto) 66, Lymphocytes (%) (Auto) 21, Monocytes (%) (Auto) 12, Eosinophils (%) (Auto) 1, Basophils (%) (Auto) 0, Neutrophils # (Auto) 4.7, Lymphocytes # (Auto) 1.5, Monocytes # (Auto) 0.8, Eosinophils # (Auto) 0.1, Basophils # (Auto) 0.0, Immature Granulocyte # (Auto) 0.0, Sodium Level 136, Potassium Level 3.4, Chloride Level 102, Carbon Dioxide Level 20, Anion Gap 14, Blood Urea Nitrogen 12, Creatinine 0.84, Estimat Glomerular Filtration Rate 114, BUN/Creatinine Ratio 14, Glucose Level 177, Calcium Level 9.2, Corrected Calcium 9.3, Total Bilirubin 1.2, Aspartate Amino Transf (AST/SGOT) 15, Alanine Aminotransferase (ALT/SGPT) 20, Alkaline Phosphatase 101, Total Protein 6.5, Albumin 3.9 05/27/23 21:01: Glucometer 169 05/28/23 04:20: White Blood Count 6.2, Red Blood Count 4.26, Hemoglobin 12.6, Hematocrit 36, Mean Corpuscular Volume 85, Mean Corpuscular Hemoglobin 30, Mean Corpuscular Hemoglobin Concent 35, Red Cell Distribution Width 13.3, Platelet Count 192, Mean Platelet Volume 10.7, Immature Granulocyte % (Auto) 1, Neutrophils (%) (Auto) 55, Lymphocytes (%) (Auto) 25, Monocytes (%) (Auto) 11, Eosinophils (%) (Auto) 8, Basophils (%) (Auto) 0, Neutrophils # (Auto) 3.4, Lymphocytes # (Auto) 1.6, Monocytes # (Auto) 0.7, Eosinophils # (Auto) 0.5, Basophils # (Auto) 0.0, Immature Granulocyte # (Auto) 0.0, Sodium Level 135, Potassium Level 3.8, Chloride Level 100, Carbon Dioxide Level 25, Anion Gap 10, Blood Urea Nitrogen 9, Creatinine 0.81, Estimat Glomerular Filtration Rate 115, BUN/Creatinine Ratio 11, Glucose Level 129, Calcium Level 8.9, Corrected Calcium 9.1, Total Bilirubin 1.0, Aspartate Amino Transf (AST/SGOT) 16, Alanine Aminotransferase (ALT/SGPT) 20, Alkaline Phosphatase 87, Total Protein 6.0, Albumin 3.7 05/28/23 21:10: Glucometer 151 05/29/23 04:58: White Blood Count 4.2, Red Blood Count 3.89, Hemoglobin 11.3, Hematocrit 34, Mean Corpuscular Volume 86, Mean Corpuscular Hemoglobin 29, Mean Corpuscular Hemoglobin Concent 34, Red Cell Distribution Width 13.4, Platelet Count 146, Mean Platelet Volume 10.5, Immature Granulocyte % (Auto) 0, Neutrophils (%) (Auto) 49, Lymphocytes (%) (Auto) 28, Monocytes (%) (Auto) 11, Eosinophils (%) (Auto) 12, Basophils (%) (Auto) 0, Neutrophils # (Auto) 2.0, Lymphocytes # (Auto) 1.2, Monocytes # (Auto) 0.5, Eosinophils # (Auto) 0.5, Basophils # (Auto) 0.0, Immature Granulocyte # (Auto) 0.0, Sodium Level 135, Potassium Level 3.4, Chloride Level 101, Carbon Dioxide Level 26, Anion Gap 8, Blood Urea Nitrogen 5, Creatinine 0.73, Estimat Glomerular Filtration Rate 119, BUN/Creatinine Ratio 7, Glucose Level 151, Calcium Level 8.8, Corrected Calcium 9.5, Total Bilirubin 0.6, Aspartate Amino Transf (AST/SGOT) 15, Alanine Aminotransferase (ALT/SGPT) 19, Alkaline Phosphatase 77, Total Protein 5.7, Albumin 3.1 05/29/23 06:25: Magnesium Level 1.8 05/29/23 09:16: Glucometer 157 05/29/23 21:06: Glucometer 152 05/30/23 05:15: White Blood Count 5.0, Red Blood Count 4.39, Hemoglobin 13.0, Hematocrit 38, Mean Corpuscular Volume 87, Mean Corpuscular Hemoglobin 30, Mean Corpuscular Hemoglobin Concent 34, Red Cell Distribution Width 13.2, Platelet Count 181, Mean Platelet Volume 10.8, Immature Granulocyte % (Auto) 0, Neutrophils (%) (Auto) 56, Lymphocytes (%) (Auto) 23, Monocytes (%) (Auto) 9, Eosinophils (%) (Auto) 11, Basophils (%) (Auto) 0, Neutrophils # (Auto) 2.8, Lymphocytes # (Auto) 1.2, Monocytes # (Auto) 0.5, Eosinophils # (Auto) 0.5, Basophils # (Auto) 0.0, Immature Granulocyte # (Auto) 0.0, Sodium Level 137, Potassium Level 3.9, Chloride Level 102, Carbon Dioxide Level 25, Anion Gap 10, Blood Urea Nitrogen 5, Creatinine 0.77, Estimat Glomerular Filtration Rate 117, BUN/Creatinine Ratio 6, Glucose Level 131, Calcium Level 9.5, Corrected Calcium 9.5, Total Bilirubin 0.6, Aspartate Amino Transf (AST/SGOT) 21, Alanine Aminotransferase (ALT/SGPT) 25, Alkaline Phosphatase 90, Total Protein 6.7, Albumin 4.0 05/30/23 08:33: Glucometer 234 Discharge Home Medications: Active Scripts Active Reglan (Metoclopramide HCl) 10 Mg Tablet 10 Mg PO ACHS Ondansetron Odt (Ondansetron) 4 Mg Tab.rapdis 4 Mg PO Q6H PRN Amlodipine Besylate 5 Mg Tablet 5 Mg PO DAILY Reported Tadalafil 5 Mg Tablet 5 Mg PO HS Losartan Potassium 100 Mg Tablet 100 Mg PO HS Buspirone HCl 10 Mg Tablet 10 Mg PO TID PRN Escitalopram Oxalate 10 Mg Tablet 10 Mg PO HS Cetirizine HCl 10 Mg Tablet 10 Mg PO HS Tresiba Flextouch U-100 (Insulin Degludec) 100 Unit/Ml (3 Ml) Insuln.pen 30 Units SC HS Atorvastatin Calcium 20 Mg Tablet 20 Mg PO HS Tadalafil 5 Mg Tablet 5 Mg PO HS PRN Pantoprazole Sodium 40 Mg Tablet.dr 40 Mg PO HS Baclofen 10 Mg Tablet 10-20 Mg PO BID PRN Instructions to patient/family Please see electronic discharge instructions given to patient. ARELI WARNER DO May 30, 2023 11:09
[2023-05-30 11:32] VITALS: BP 167/100
[2023-05-30] MEDS ORDERED: LOSARTAN 100 MG TABLET PO SCH (12:00)
--- OUTSIDE RECORDS SUMMARY | 2023-05-31 14:28 | XMS REPORT | Clinical Summary ---
Author Author [facility] Organization [facility] Address Unknown Phone Unavailable Care Team Providers Care Ensemble Member Name Role Phone Jaleesa Tuttle MD PCP [phone] Source Comments Some departments are not documenting in the electronic medical record. If you do not see the information that you expected, contact Release of Information in the Health Information Management department at [phone] for further assistance in locating additional records.[facility] Allergies No known active allergies Medications Medication Sig Dispensed Refills Start Date End Date Status cyclobenzaprine (FLEXERIL) 5 mg tablet 0 04/07/2021 Active TRESIBA FLEXTOUCH U-200 200 unit/mL (3 mL) injection PEN sixty Units. 0 04/12/2021 Activ e tadalafiL (CIALIS) 5 mg tablet Take one tablet by mouth as Needed for Erectile dysfunction. Takes one tablet daily and additional tablet about 3 hours before intercourse 0 Active testosterone (ANDROGEL PUMP) 1.62 % (20.25 mg/1.25 g) transdermal gel 0 04/23/2021 Active alprostadil 20 mcg/mL soln IC inj(cmpd)Indications :Erectile dysfunction due to diseases classified elsewhere Inject five mcg into base of penis as directed as Needed. Max 1 dose/ 24-48 hrs. 10 mL 0 09/30/2022 Active Needle (Disp) 27 G 27 gauge x 1/2" ndleIndications:Erec tile dysfunction due to diseases classified elsewhere Use as directed. 20 each 11 09/30/2022 Active syringe (disposable) 1 mLIndications:Erecti le dysfunction due to diseases classified elsewhere Use as directed. 12 each 09/30/2022 Active Active Problems Problem Noted Date Diagnosed Date Erectile dysfunction due to diseases classified elsewhere 05/15/2021 Last Assessment & Plan: 36 yo male returns for further evaluation of erectile dysfunction He is currently using alprostadil 20 mcg/mL, 0.55 mL, with cialis 5 mg daily, intermittent 5 mg and constriction ring with satisfactory results Reports 100% erections lasting less than an hour He is currently in [place], still going through [facility]. Refills sent. He will reach out to schedule future appointments. Surgical History Surgery Date Site/Laterality Comments DENTAL SURGERY HX VASECTOMY FOOT SURGERY Medical History Medical History Date Comments DM (diabetes mellitus) (HCC) Social History Tobacco Use Types Packs/Day Years Used Date Smoking Tobacco: Never Smokeless Tobacco: Never Alcohol Use Standard Drinks/Week Comments Yes 0 (1 standard drink = 0.6 oz pur e alcohol) Alcohol Use Answer Date Recorded Alcohol Use Yes Male: 9+ ounces (15+ Standard Drinks) per week T hreshold 0 Female: 4.8+ ounces (8+ Standard Drinks) per wee k Threshold Not on file Sex and Gender Information Value Date Recorded Sex Assigned at Not on file Gender Identity Not on file Sexual Orientation Not on file Obstetrics History Last Filed Vital Signs Vital Sign Reading Time Taken Comments Blood Pressure 130/85 05/26/2021 8:08 AM CDT Pulse 97 05/26/2021 8:08 AM CDT Temperature 36.4 C (97.6 F) 05/15/2021 10:15 AM C DT Respiratory Rate - - Oxygen Saturation - - Inhaled Oxygen Concentration - - Weight 90.7 kg (200 lb) 05/26/2021 8:08 AM CDT Height 182.9 cm (6') 05/26/2021 8:08 AM CDT Body Mass Index 27.12 05/26/2021 8:08 AM CDT Plan of Treatment Health Maintenance Due Date Last Done Comments DTAP/TDAP VACCINES (2 - Tdap) 06/05/1998 06/04/1998 HIV SCREENING 10/13/1998 HEPATITIS C SCREENING 10/13/2001 PHYSICAL (COMPREHENSIVE) EXAM 10/13/2001 DEPRESSION SCREENING 08/01/2022 INFLUENZA VACCINE (#1) 2023 COVID-19 VACCINE ( season) 2023 06/29/2022, 06/12/2021, 10/30/2020, Additional history exists PNEUMOCOCCAL VACCINE 0-64 YRS Aged Out No longer eligible based on patient's age to complete this topic Care Teams Ensemble Member Relationship Specialty Start Date End Date Jaleesa Tuttle MD [address] [place] [address] PCP - General Family Medicine 05/15/21
[2023-06-02] MEDS ORDERED: CLONIDINE PATCH REMOVAL TP SCH (08:59)
== END 2023-05-30 11:57 | disposition home or self-care (01) | DRG 392 ==
LOC: EDUNIT# 23:21 → ER 23:24 → 4TH 23:54 → UNDOADMOB 23:54 → OBSVTOIN 05-24 00:27 → 4TH 05-24 00:27 → INTOOBSV 05-24 00:27 → UNDODISIN 05-30 11:57
PROVIDERS: ADMIT Internal Medicine; ATTEND Internal Medicine
DX: K31.84 Gastroparesis (principal); E11.65 Type 2 diabetes mellitus with hyperglycemia; I10 Essential (primary) hypertension; T38.3X5A Adverse effect of insulin and oral hypoglycemic [antidiabetic] drugs, initial encounter; Z90.49 Acquired absence of other specified parts of digestive tract; E78.00 Pure hypercholesterolemia, unspecified; K21.9 Gastro-esophageal reflux disease without esophagitis; M54.9 Dorsalgia, unspecified; G89.29 Other chronic pain; E87.6 Hypokalemia; F41.9 Anxiety disorder, unspecified; F12.90 Cannabis use, unspecified, uncomplicated; Z79.4 Long term (current) use of insulin; Z91.09 Other allergy status, other than to drugs and biological substances; Z79.891 Long term (current) use of opiate analgesic; Z79.899 Other long term (current) drug therapy; Z23 Encounter for immunization
CPT/HCPCS: 36415; 74177; 78226; 80048; 80053; 80076; 80306; 82947; 83735; 85007; 85025; 85027; 90686; 94664; 94760; 96374